=== PATIENT | female | born 1940 | race Caucasian/White ===

== ENCOUNTER 2017-07-08 10:22 | Emergency (ER) | payer MEDICARE, SELFPAY | END 2017-07-08 17:53 | disposition home or self-care (01) | PROVIDERS: Emergency Provider Emergency Medicine; Family Provider Internal Medicine; Visit Provider Emergency Medicine | DX: R55 Syncope and collapse (principal) | CPT/HCPCS: 36415; 70450; 71010; 71045; 80053; 84484; 85025; 85379; 85610; 85730; 93005; 93010; 93970; 96360; 99058; 99285 ==

== ENCOUNTER 2017-12-19 09:00 | Day surgery (SDC) | payer MEDICARE, SELFPAY ==
[2017-12-19] VITALS (9 sets, daily range): BP systolic 100–115; BP diastolic 57–72; PULSE 45–63; RESP 8–16; TEMP 35.8–36.5; O2SAT 91–97; BMI 25.8
[2017-12-19] MEDS: SODIUM CHLORIDE 0.9% 1,000 ML 200 ML IV (09:30)
--- NOTE | 2017-12-19 09:58 | PM.PREOP ---
Pre-operative Note Interval Note Pre-op Check: Yes History & Physical Reviewed by Physician and Yes Exam Performed Changes: No H&P completed within 30 days and has changed as indicated here:: Patient seen and examined. Her history and physical examination from last week is unchanged and on the chart. Proceed with colonoscopy today as planned. ASA Class (for procedural sedation): II
[2017-12-19] MEDS: MIDAZOLAM 5 MG/5 ML VIAL IV (10:20)
[2017-12-19] MEDS: fentaNYL 250 MCG/5 ML INJ IV ×2 (10:21→10:24)
--- NOTE | 2017-12-19 10:33 | PM.OP.ENDO ---
Operative Date/Time/Diagnoses Date of procedure: 12/19/17 Time of procedure: 10:33 Pre-op diagnosis: Colorectal screening Post-op diagnosis: other (Normal left colon except diverticulosis but otherwise incomplete colonoscopy) Procedure & Clinicians Study performed: 1. Sedation per surgeon 2. Incomplete colonoscopy to distal transverse colon Same procedure as scheduled: No Indications: 77-year-old female require colorectal screening since it has been a number of years from her past examination. Colonoscopy was recommended. Surgeon: Payam Paez Procedure Notes Procedure in detail: After obtaining informed consent patient was brought to the endoscopy suite attached all appropriate cardiopulmonary monitors. Nasal cannula oxygen was applied. She was placed in left lateral decubitus position. SCOAP time out was performed per standard protocol. Digital rectal examination revealed no masses. Colonoscope was inserted into the rectum and the bowel was insufflated with carbon dioxide. Sigmoid colon had significant diverticulosis extending up through the descending colon. The sigmoid colon was extremely redundant and tortuous. It took some time to navigate the lumen due to redundancy. Splenic flexure was navigated and the scope was advanced into the distal transverse colon. Once again we encountered significant redundancy and tortuosity of the colon with no ability to advance the scope safely despite multiple maneuvers and abdominal pressure. I therefore elected to abandon the procedure. Scope was withdrawn and the procedure was terminated. Other than the diverticulosis there were no significant findings. She will complete a barium enema to finish screening examination. Scope withdrawal time: Not applicable Sedation minutes: 22 Findings: diverticulosis and other findings (Extremely redundant tortuous left colon prohibiting completion of colonoscopy to the cecum) Specimen(s): none sent Complications: none Recommendations: High fiber diet and Other recommendation (Completion barium enema to be scheduled) Plan for aftercare: 1. Discharge to home Follow up: as needed Disposition: PACU
--- NOTE | 2017-12-19 11:41 | SUR.PHASEII ---
Tending to be sleepy but voices feeling she can dsress. helping. VSS. Reinforced going home and sleeping off meds and is in agreement.
== END 2017-12-19 11:50 | disposition home or self-care (01) ==
PROVIDERS: Family Provider Internal Medicine; PCP Internal Medicine; Visit Provider Surgery
PROC: 0DJD8ZZ Inspection of Lower Intestinal Tract, Via Natural or Artificial Opening Endoscopic (ICD-10-PCS; CPT 45378; principal; 2017-12-19 10:45)
DX: Z12.11 Encounter for screening for malignant neoplasm of colon (principal); K57.30 Diverticulosis of large intestine without perforation or abscess without bleeding; K43.9 Ventral hernia without obstruction or gangrene; Z53.09 Procedure and treatment not carried out because of other contraindication; Q43.8 Other specified congenital malformations of intestine
CPT/HCPCS: G0121; 99152; J2250; J3010

== ENCOUNTER 2018-01-03 06:34 | Day surgery (SDC) | payer MEDICARE, SELFPAY ==
[2017-12-12 14:36] VITALS: BMI 26.2
[2018-01-03] VITALS (12 sets, daily range): BP systolic 105–139; BP diastolic 48–86; PULSE 50–68; RESP 7–16; TEMP 36.1–36.9; O2SAT 93–98; BMI 26.2
[2018-01-03] MEDS: LACTATED RINGERS 1,000 ML 100 ML IV ×2 (07:29→08:43)
--- NOTE | 2018-01-03 07:47 | PM.PREOP ---
Pre-operative Note Interval Note Pre-op Check: Yes History & Physical Reviewed by Physician and Yes Exam Performed Changes: No H&P completed within 30 days and has changed as indicated here:: Patient seen and examined in preoperative area today. History physical examination as documented on December 19, 2017 is on the chart. Document is unchanged. Proceed with hernia repair today as planned.
[2018-01-03] MEDS: CEFAZOLIN 2 GM/100 ML FROZ.PIGGY IV (07:50)
--- NOTE | 2018-01-03 08:05 | SUR.OPER ---
Supine on padded OR bed, head on pillow, arms secured on padded arm boards at <90 degrees abduction, legs uncrossed, safety belt at thigh, tape over blanket over lower legs.
[2018-01-03] MEDS: CEFAZOLIN 1 GM VIAL IV (08:39)
[2018-01-03] MEDS: BUPIVACAINE 0.5% (PF) VIAL 30 ML INJ (08:47)
[2018-01-03] MEDS: LIDOCAINE 1% W/EPI INJ 20 ML INJ (08:47)
--- NOTE | 2018-01-03 09:41 | PM.OP.1 ---
Operative Date/Time/Diagnoses Date of procedure: 01/03/18 Time of procedure: 09:41 Pre-op diagnosis: symptomatic incarcerated ventral hernia Post-op diagnosis: same Procedure & Clinicians Procedure: open repair of incarcerated ventral hernia with mesh Same procedure as scheduled: Yes Indications: 77-year-old female who presented with epigastric mass causing significant discomfort and intermittent pain with activity. Examination and evaluation were consistent with incarcerated ventral hernia. Open repair with mesh was recommended. Surgeon: Payam Paez Click Yes if Unassisted: No Anesthesia Type: General Operative Notes Findings: 1. incarcerated ventral hernia containing omentum 2. ventral hernia in the epigastric location above the umbilicus without involvement of the umbilicus itself Closure Type: primary Specimen(s): none sent Implants & Drains: 8 cm x 8 cm dual sided CQur circular mesh Estimated Blood Loss (mL): 15 Blood products transfused: none Procedure in detail: after obtaining informed consent the patient was brought to the operating room placed supine on the table. After satisfactory induction of anesthesia the abdomen was prepped and draped in usual sterile fashion. SCOAP time out was performed per standard protocol. Palpable hernia was identified and vertical midline incision was created for distance of approximately 3 cm over the palpable defect using 15 scalpel blade. Local anesthesia consisting of a one-to-one mixture 1% lidocaine with 1 100,000 epinephrine 0.5% plain Marcaine was injected in the skin and subcutaneous tissue for postoperative analgesia. Meticulous sharp dissection using Metzenbaum scissors and Bovie was employed to liberate the hernia sac from surrounding connective tissue. Dissection was carried down to the rectus fascia which was identified. Sac was then opened sharply and removed then discarded. Adhesions between the omentum, fascia, and underlying peritoneum were taken down under direct visualization using sharp dissection. Hemostasis was achieved with the Bovie. Great care was taken avoid injury to the colon and small bowel which were visible at this point. Omentum was then reduced back into the abdomen in its usual anatomic position. Hemostasis was verified. Palpation through the defect of the surrounding rectus fascia revealed no other defects. However, the fascia was quite attenuated throughout the entire anterior abdominal wall. Mesh was brought onto the operative field and soaked in Ancef solution. Mesh was then placed into the defect and secured below the fascia using interrupted 0 Tycron sutures. Great care was taken to avoid injury to adjacent structures, including the bowel. Mesh was noted to lie nicely along the fascia with no remaining defects or folds within the mesh. Wound was irrigated with copious amounts of sterile saline solution and hemostasis was verified. The mesh was noted to be in good position with solid repair. Therefore subcutaneous tissue was reapproximated with interrupted 3 0 Vicryl suture. Skin was closed in a subcuticular fashion with running 4 0 Monocryl suture. Dermal adhesive was applied at the skin. Anesthesia was reversed the patient extubated in the operating room. She was taken recovery in stable condition. Complications: none Condition: stable Disposition: PACU Plan for aftercare: 1. Discharge to home 2. Follow up in surgery Clinic in 2 weeks
[2018-01-03] MEDS: HYDROMORPHONE 2 MG INJ 0.5 MG IV ×2 (10:06→10:14)
--- NOTE | 2018-01-03 11:09 | SUR.PHASEII ---
pt still very sleepy, S.O. brought in d/c instructions discussed both voiced an understanding. pt left to rest, abdomen with glue c/d/i. ice intermittently used.
--- NOTE | 2018-01-03 15:56 | SUR.PHASEII ---
pt check on through out stay, S.O at bedside, abdomen remained c/d/i. and pt tolerated pain- rated 2/10 by discharge. pt assisted to dress, steady when up, ;left when ready and left in stable condition.
== END 2018-01-03 12:00 | disposition home or self-care (01) ==
PROVIDERS: Family Provider Internal Medicine; PCP Internal Medicine; Visit Provider Surgery
PROC: (CPT 49560; principal; 2018-01-03 07:45)
DX: K43.9 Ventral hernia without obstruction or gangrene (principal); J45.909 Unspecified asthma, uncomplicated; G47.33 Obstructive sleep apnea (adult) (pediatric); E66.9 Obesity, unspecified
CPT/HCPCS: 49560; 49568; C1781; J0690; J1100; J1170; J2405; J2704; J3010

== ENCOUNTER 2018-01-05 09:07 | Emergency (ER) | payer MEDICARE, SELFPAY ==
[2018-01-05] VITALS (8 sets, daily range): BP systolic 117–150; BP diastolic 60–77; PULSE 52–57; RESP 10–25; TEMP 36.7; O2SAT 92–98
--- NOTE | 2018-01-05 09:11 | ED_ITS ---
HPI - Chest Pain General Chief Complaint: Chest Pain Stated Complaint: Chest pain Time Seen by Provider: 01/05/18 09:10 Source: patient Mode of arrival: ambulatory Limitations: no limitations History of Present Illness HPI narrative: 77-year-old female here for evaluation of chest pain. Patient states that last evening she woke up in the middle of the night and had a funny feeling in her chest. She recently had an umbilical hernia repair earlier this week. She states that she thought that it was reaction to some of the pain medication she was taking. She went back to bed feeling well. Woke up this morning feeling well. States she went and took a shower and went and sat in the living room and then had a sudden onset of chest discomfort. She states that the discomfort started approximately 1 hr prior to arrival here in the emergency department. She states that it went completely away after arrival here in the ER. She states that she felt very uneasy at that time. Was diaphoretic at the time. No nausea vomiting. Did not radiate. Did not get worse with breathing or palpation or movement. States she has never had anything like this before. She has had palpitations in the past and has seen Cardiology however she is not having any palpitations currently or during this event. Related Data Home Medications Medication Instructions Recorded Confirmed aspirin 81 mg chewable tablet 81 mg PO DAILY 10/24/17 01/05/18 omega 4-jyp-mgu-fish oil 1 cap PO DAILY 12/12/17 01/05/18 Previous Rx's Medication Instructions Recorded oxycodone 5 mg PO Q4-6H PRN #30 tab 01/03/18 Allergies Allergy/AdvReac Type Severity Reaction Status Date / Time No Known Drug Allergies Allergy Verified 01/03/18 07:05 Review of Systems Constitutional Denies chills and Denies fever(s) Cardiovascular Reports chest pain, Reports diaphoresis, Denies syncope, Denies rapid heart rate , Denies edema, Denies irregular heart rhythm, Denies leg edema, Denies lightheadedness, Denies radiating jaw, neck or arm pain, Denies palpitations, Denies dyspnea and Denies slow heart rate Respiratory Denies cough and Denies dyspnea Gastrointestinal Gastrointestinal: Denies abdominal pain, Denies change in bowel habits, Denies diarrhea, Denies nausea and Denies vomiting Genitourinary Denies dysuria Musculoskeletal Denies myalgias and Denies arthralgias Integumentary/Breasts Denies lesions and Denies rash Neurologic Denies syncope Endocrine Denies palpitations Hematologic/Lymphatic Denies easy bleeding and Denies easy bruising [facility] Medical History Ventral hernia (Acute) Acid reflux (Acute) Asthma (Acute) Atherosclerotic vascular disease (Acute) Hernia (Acute) History of Holter monitoring (Acute) History of pneumonia (Acute) Hyperlipidemia (Acute) Mitral valve regurgitation (Acute) Palpitations (Acute) Pedal edema (Acute) SVT (supraventricular tachycardia) (Acute) Sinus bradycardia (Acute) Sleep apnea (Acute) Uncomplicated asthma (Acute) Polymyalgia rheumatica (Chronic) Surgical History Cataract extraction status of left eye (Acute) H/O bilateral cataract extraction (Acute) Previous section (Resolved) Family History Father Cancer Social History household members: spouse Smoking Status: Never smoker Exam Initial Vital Signs Initial Vital Signs: Vital Signs Temperature 98.0 F 01/05/18 09:18 Pulse Rate 54 L 01/05/18 09:18 Respiratory Rate 12 01/05/18 09:18 Blood Pressure 150/74 H 01/05/18 09:18 Pulse Oximetry 98 01/05/18 09:18 Const General: cooperative, healthy appearing, comfortable, well developed, well groomed and No acute distress Orientation: alert, awake and oriented x3 HENMT Head: normal to inspection and normocephalic Resp Effort & Inspection: normal respiratory effort Auscultation: clear to auscultation bilaterally Cardio Rate: regular rate Rhythm: regular rhythm Pulses: radial pulses present GI Inspection: non-distended Palpation: soft, No firm and No tender Skin Lesions: no lesions Rashes: no rashes Neuro General: alert, awake and oriented x3 Cognition: normal cognition Speech: speech normal Extrem General: normal to inspection and capillary refill normal Psych Appearance: grossly normal and well kempt Course Orders Ordered: ED Orders 01/05/18 09:12 XR chest 1V Stat EKG-12 Lead Stat 01/05/18 09:50 Complete Blood Count AUTO DIFF Stat Comprehensive Metabolic Panel Stat Lipase Stat Troponin I Stat 01/05/18 14:05 Troponin I Stat Discontinued Medications Aspirin (Aspirin Chew) 324 mg PO NOW ONE Stop: 01/05/18 09:13 Last Admin: 01/05/18 09:36 Dose: 324 mg Vital Signs - 8 hr 01/05/18 09:18 01/05/18 09:22 01/05/18 09:50 Temperature 98.0 F Pulse Rate 54 L 54 L 54 L Respiratory Rate 12 19 12 Blood Pressure 150/74 H Blood Pressure [Right Arm] 150/74 H 117/77 Pulse Oximetry 98 94 95 01/05/18 10:36 01/05/18 11:04 01/05/18 11:39 Temperature Pulse Rate 52 L 54 L 53 L Respiratory Rate 20 10 L 25 H Blood Pressure Blood Pressure [Right Arm] 127/60 125/65 141/74 H Pulse Oximetry 92 93 93 01/05/18 12:26 01/05/18 14:13 Temperature Pulse Rate 52 L 57 L Respiratory Rate 18 18 Blood Pressure Blood Pressure [Right Arm] 128/66 134/75 Pulse Oximetry 93 93 MDM - Chest Pain Lab Data Attestation: I reviewed the patient's lab results. Result diagrams: 01/05/18 09:50 01/05/18 09:50 Lab Results 01/05/18 01/05/18 01/05/18 Range/Units 09:50 09:50 14:05 WBC 11.0 (4.5-11.0) X10^3/uL RBC 4.79 (4.0-5.2) X10^6/uL Hgb 14.0 (12.0-16.0) g/dL Hct 42.7 (36-46) % MCV 89.1 (80-100) fL MCH 29.2 (26-34) PG MCHC 32.8 (30-36) % RDW 13.8 (11.6-14.8) % Plt Count 343 (150-400) X10^3/uL Neut % (Auto) 71.5 (50-75) % Lymph % (Auto) 21.1 L (25-40) % [place] % (Auto) 6.1 (3-14) % Eos % (Auto) 0.9 L (2-4) % Baso % (Auto) 0.4 (0-2) % Neut # (Auto) 7800 H (7171-2127) /uL Sodium 142 (137-145) mmol/L Potassium 3.8 (3.4-5.1) mmol/L Chloride 99 (98-107) mmol/L Carbon Dioxide 31 (22-32) mmol/L BUN 11 (7-17) mg/dL Creatinine 0.70 (0.52-1.04) mg/dL Estimated GFR > 60.0 (>60) mL/min BUN/Creatinine Ratio 15.7 (6-22) Glucose 109 (80-110) mg/dL Calcium 9.5 (8.4-10.2) mg/dL Total Bilirubin 1.0 (0.2-1.3) mg/dL AST 20 (14-36) IU/L ALT 28 (9-52) IU/L Alkaline Phosphatase 75 (38-126) U/L Troponin I < 0.012 < 0.012 (0.01-0.034) ng/mL Total Protein 7.4 (6.3-8.2) g/dL Albumin 4.6 (3.5-5.0) g/dL Globulin 2.8 (1.7-4.1) g/dL Albumin/Globulin Ratio 1.6 (1.0-2.8) Lipase 83 (23-300) U/L Imaging Data Chest x-ray: Radiologist's impression: PROCEDURE: XR CHEST 1V INDICATIONS: chest pain TECHNIQUE: One view of the chest was acquired. COMPARISON: [facility], CHEST 1 VIEW, 07/08/2017, 12:28. FINDINGS: Surgical changes and devices: None. Lungs and pleura: No pleural effusions or pneumothorax. Lungs are clear. Mediastinum: Mediastinal contours appear normal. Heart size is normal. Bones and chest wall: No suspicious bony lesions. Overlying soft tissues appear unremarkable. IMPRESSION: No acute cardiopulmonary pathology. Dictated by: Sandro Coon M.D. on 01/05/2018 at 9:45 Approved by: Sandro Coon M.D. on 01/05/2018 at 9:45 ECG Data Attestation: I personally reviewed and interpreted this ECG as follows: Prior ECG tracings: not available for review Interpretation: Sinus bradycardia ventricular rate of 51 normal axis normal QRS Normal QTC Nonspecific ST T wave changes MDM Narrative Medical decision making narrative: patient has been asymptomatic since being here in the emergency department. First troponin was negative. Second troponin which was greater than 6 hr after the onset of her symptoms was also unremarkable. Has a nonspecific EKG. She was given an aspirin. Had a long discussion with the patient and her at bedside regarding her symptoms. I did inform her that she was at moderate risk for ACS. We did offer admitting her to the hospital to obtain stress testing within 24 hr. After this discussion the patient stated that she did not want to be admitted to the hospital. She stated that she understood the risks of being discharged. 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 Patient was alert and oriented x3. In my opinion has the capacity to make decisions. She was instructed that she can return to the emergency department at any time she changes her mind. Informed her that she need to contact Cardiology tomorrow to discuss follow-up and stress testing. Her was at bedside for these discussions. He agreed with her going home as well. Discharge Plan Departure Patient Disposition: Home Clinical Impression: Atypical chest pain Instructions: DI for Chest Pain Activity Restrictions/Additional Instructions: you did decide not to be admitted to the hospital today so it is important that you contact your primary care doctor and also your manufacturing weaver tomorrow for a follow-up. Make sure you discussed with your manufacturing weaver the indications for a stress test. you may return to the emergency department at any time for new or worsening symptoms Prescriptions: No Action aspirin 81 mg tablet,chewable 81 mg PO DAILY RF: 0 omega 9-zma-jap-fish oil 910-1,400 mg Capsule 1 cap PO DAILY RF: 0 oxycodone 5 mg tablet 5 mg PO Q4-6H PRN (Reason: pain) Qty: 30 RF: 0
[2018-01-05] MEDS: ASPIRIN 81 MG TAB 324 MG PO (09:36)
[2018-01-05 10:04] LABS: Add Manual Diff / Slide Review NO; Basophils Percent Auto 0.4 % (0-2); Eosinophils Percent Auto 0.9 % (2-4); Hematocrit 42.7 % (36-46); Lymphocytes Percent Auto 21.1 % (25-40); Mean Corpuscular HGB Conc 32.8 % (30-36); Mean Corpuscular Hemoglobin 29.2 PG (26-34); Mean Corpuscular Volume 89.1 fL (80-100); Monocytes Percent Auto 6.1 % (3-14); Neutrophils Absolute Auto 7800 /uL (3000-5900); Neutrophils Percent Auto 71.5 % (50-75); Platelet Count 343 X10^3/uL (150-400); Red Blood Cell Count 4.79 X10^6/uL (4.0-5.2); Red Cell Distribution Width 13.8 % (11.6-14.8)
[2018-01-05 10:10] LABS: Alanine Aminotransferase 28 IU/L (9-52); Albumin 4.6 g/dL (3.5-5.0); Albumin Globulin Ratio 1.6 (1.0-2.8); Alkaline Phosphatase 75 U/L (38-126); Aspartate Aminotransferase 20 IU/L (14-36); BUN Creatinine Ratio 15.7 (6-22); Blood Urea Nitrogen 11 mg/dL (7-17); Calcium 9.5 mg/dL (8.4-10.2); Carbon Dioxide 31 mmol/L (22-32); Chloride 99 mmol/L (98-107); Estimated Glomerular Filt Rate > 60.0 mL/min (>60); Globulin 2.8 g/dL (1.7-4.1); Glucose 109 mg/dL (80-110); HEMOLYSIS < 15 (0-50); Lipase 83 U/L (23-300); Potassium 3.8 mmol/L (3.4-5.1); Sodium 142 mmol/L (137-145); Total Protein 7.4 g/dL (6.3-8.2)
[2018-01-05 10:23] LABS: Troponin I < 0.012 ng/mL (0.01-0.034)
[2018-01-05 14:33] LABS: Troponin I < 0.012 ng/mL (0.01-0.034)
--- NOTE | 2018-01-05 18:51 | PM.PN.1 ---
Subjective Date Patient Seen: 01/05/18 Time Patient Seen: 11:00 Interval history: Notified by emergency room physician and staff that the patient had presented this morning with complaints of chest pain and shortness of breath. I saw the patient in the ER during her evaluation after she had been initially seen, examined, and stabilized. At the time of my visit she was sitting comfortably in the gurney in no acute distress. She was in good spirits. is at the bedside. She denies any nausea or vomiting. No fever or chills. No wound drainage. Her pain at the wound site itself is relatively minimal. Denies abdominal pain elsewhere. Has not had a bowel movement since surgery. No dysuria or hematuria however. She is passing flatus. Exam Vital Signs (past 8 hours): - 01/05/18 11:04 01/05/18 11:39 01/05/18 12:26 Pulse Rate 54 L 53 L 52 L Respiratory Rate 10 L 25 H 18 Blood Pressure [Right Arm] 125/65 141/74 H 128/66 Pulse Oximetry 93 93 93 01/05/18 14:13 Pulse Rate 57 L Respiratory Rate 18 Blood Pressure [Right Arm] 134/75 Pulse Oximetry 93 Oxygen Delivery Method Room Air Narrative Exam Narrative: Vital signs are as above Abdomen is soft and nondistended. She is completely nontender except at the incision site which is otherwise clean, dry, and intact. No drainage. She does have ecchymoses surrounding the incision and tracking around the umbilicus to the inferior aspect of the abdomen consistent with postoperative changes. She does have seroma at the hernia repair site as anticipated. No obvious abscess or significant hematoma. No significant erythema or evidence of cellulitis. Objective Labs Result Diagrams: 01/05/18 09:50 01/05/18 09:50 Labs: Laboratory Results - last 24 hr 01/05/18 01/05/18 01/05/18 09:50 09:50 14:05 WBC 11.0 RBC 4.79 Hgb 14.0 Hct 42.7 MCV 89.1 MCH 29.2 MCHC 32.8 RDW 13.8 Plt Count 343 Neut % (Auto) 71.5 Lymph % (Auto) 21.1 L [place] % (Auto) 6.1 Eos % (Auto) 0.9 L Baso % (Auto) 0.4 Neut # (Auto) 7800 H Sodium 142 Potassium 3.8 Chloride 99 Carbon Dioxide 31 BUN 11 Creatinine 0.70 Estimated GFR > 60.0 BUN/Creatinine Ratio 15.7 Glucose 109 Calcium 9.5 Total Bilirubin 1.0 AST 20 ALT 28 Alkaline Phosphatase 75 Troponin I < 0.012 < 0.012 Total Protein 7.4 Albumin 4.6 Globulin 2.8 Albumin/Globulin Ratio 1.6 Lipase 83 All laboratory studies are reviewed. EKG is unremarkable. Cardiac enzymes are negative. One view upright chest x-ray shows no infiltrates or pneumothorax. No significant cardiomegaly. No significant effusions. No evidence of free air under the diaphragm. Assessment & Plan Plan: Assessment/Plan Narrative: 77-year-old female postoperative day 2 from open ventral hernia pair with mesh. The repair seemed to be solidly intact. No evidence of intra-abdominal hemorrhage, infection, or bowel injury. No evidence of wound infection. She does have seroma and small hematoma resulting in some ecchymoses around the incision. However, I do not believe this would explain her current symptoms of chest pain and shortness of breath. I do not see indications for antibiotics. I discussed all the above with the patient and her in detail. She will continue her usual postoperative course and treatment recommendations as previously documented. I did encourage her to take her stool softeners and Senokot daily. I also discussed the addition of milk of magnesia as needed to prevent constipation. She may ambulate as much as desired. She should continue to refrain from heavy lifting more than 20 lb. 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 Appreciate Dr. Mac's care. All questions were answered to the patient's satisfaction, and she voiced understanding. She will otherwise follow up with me as scheduled, but she understands to call or return sooner if she has any new issues, recurrent symptoms, or changes in the incision.
== END 2018-01-05 14:53 | disposition home or self-care (01) ==
PROVIDERS: Emergency Provider Emergency Medicine; Family Provider Internal Medicine; PCP Internal Medicine
DX: R07.89 Other chest pain (principal)
CPT/HCPCS: 36415; 36591; 71045; 80053; 83690; 84484; 85025; 93005; 93010; 93041; 99284; 99285

== ENCOUNTER → 2018-02-21 09:06 | Outpatient (CLI) | payer MEDICARE, SELFPAY ==
--- NOTE | 2018-02-21 09:08 | DI.RAD.S_ITS ---
PROCEDURE: FL BARIUM ENEMA W AIR CONTRAST INDICATIONS: incomplete colonoscopy COMPARISON: None. FINDINGS: KUB: Pre-procedural installation helper film demonstrates a normal bowel gas pattern. No suspicious abdominal calcifications. Visualized solid organ contours are normal in size. No suspicious bony lesions. Colon: There is adequate air-contrast opacification from the rectum to the cecum. Numerous diverticuli are seen scattered in hepatic flexure, transverse colon, descending colon and sigmoid colon. Mildly redundant sigmoid colon is seen. No strictures, ulcers, polyps, or masses are seen. Haustral folds are normal in thickness throughout. Normal appearing appendix is noted. IMPRESSION: Moderate colonic diverticulosis. No gross discrete colon polyp, ulceration or stricture is seen. No gross abnormal colonic wall thickening. Mildly redundant sigmoid colon. Dictated by: Sandro Coon M.D. on 02/21/2018 at 11:46 Approved by: Sandro Coon M.D. on 02/21/2018 at 11:52
== END ==
PROVIDERS: PCP Internal Medicine; Visit Provider Surgery
DX: Z12.11 Encounter for screening for malignant neoplasm of colon (principal); K57.30 Diverticulosis of large intestine without perforation or abscess without bleeding
CPT/HCPCS: 74280

== ENCOUNTER → 2018-06-20 13:04 | Outpatient (CLI) | payer MEDICARE, SELFPAY | PROVIDERS: PCP Internal Medicine; Visit Provider Internal Medicine | DX: Z13.820 Encounter for screening for osteoporosis (principal); Z78.0 Asymptomatic menopausal state; M89.9 Disorder of bone, unspecified; M35.3 Polymyalgia rheumatica | CPT/HCPCS: 77080 ==

== ENCOUNTER → 2018-11-16 10:55 | Outpatient (CLI) | payer MEDICARE, SELFPAY ==
--- NOTE | 2018-11-16 | DI.RAD.S_ITS ---
PROCEDURE: XR CHEST 2V INDICATIONS: SHORTNESS OF BREATH TECHNIQUE: 2 views of the chest were acquired. COMPARISON: CXR 01/05/2018, 07/08/2017, 01/22/2015, 11/05/2013 FINDINGS: Surgical changes and devices: None. Lungs and pleura: Minimal bibasilar hazy opacity. No consolidation. No pleural effusions or pneumothorax. Mediastinum: Mediastinal contours are normal. Heart size is normal. Bones and chest wall: No suspicious bony abnormalities. Soft tissues appear unremarkable. IMPRESSION: Minimal bibasilar hazy opacity most compatible with atelectasis. Dictated by: Kumar Cosme M.D. on 11/16/2018 at 11:37 Approved by: Kumar Cosme M.D. on 11/16/2018 at 11:39
== END ==
PROVIDERS: Family Provider Internal Medicine; PCP Internal Medicine; Visit Provider Internal Medicine Cardiovascular Disease
DX: R06.02 Shortness of breath (principal)
CPT/HCPCS: 71046

== ENCOUNTER → 2018-11-29 16:53 | Outpatient (CLI) | payer MEDICARE, SELFPAY ==
--- NOTE | 2018-12-01 12:13 | PM.PFT.1 ---
Pulmonary Function Test Referral & Results Date Patient Seen: 11/29/18 Requesting provider: Carlos Conner Results: The spirometry demonstrates an FVC of 2.76 L which is 91% of predicted. The FEV1 was measured at 1.94 L which is 85% of predicted. The FEV1/FVC ratio was 70 which is 93% of predicted. Following the administration of bronchodilator there was a 37% improvement in FEF 25-75% but no significant improvement in FEV1. Lung volumes show an SVC of 2.90 L which is 98% of predicted. The diffusing capacity was measured at 19.96 which is 74% of predicted. No hemoglobin value was provided, so no correction for potential anemia could be made, if appropriate. The maximum voluntary ventilation was severely reduced Interpretation: This study demonstrates perhaps very mild obstructive lung disease with evidence of minimal benefit particularly small airway flow after bronchodilator based on improvement in FEF 25-75% There is also slight reduction in diffusing capacity suggesting an element of disease at the capillary alveolar level Clinical correlation suggested
== END ==
PROVIDERS: Family Provider Internal Medicine; PCP Internal Medicine; Visit Provider Internal Medicine Cardiovascular Disease
DX: R06.02 Shortness of breath (principal); J44.9 Chronic obstructive pulmonary disease, unspecified
CPT/HCPCS: 94060; 94726; 94729

== ENCOUNTER → 2019-04-19 08:35 | Outpatient (CLI) | payer MEDICARE, SELFPAY ==
[2019-04-19 09:59] LABS: Alanine Aminotransferase 29 IU/L (<35); Aspartate Aminotransferase 28 IU/L (14-36); Blood Urea Nitrogen 14 mg/dL (7-17); Calcium 9.7 mg/dL (8.4-10.2); Carbon Dioxide 27 mmol/L (22-32); Chloride 103 mmol/L (98-107); Cholesterol 188 mg/dL (140-199); Estimated Glomerular Filt Rate > 60.0 mL/min (>60); Glucose 105 mg/dL (80-110); HDL Cholesterol 45 mg/dL (40-60); HEMOLYSIS < 15 (0-50); LDL Cholesterol Calculated 119 mg/dL (<100); Sodium 141 mmol/L (137-145); Triglycerides 122 mg/dL (35-150)
[2019-04-19 10:11] LABS: Vitamin D 25 Hydroxy (D3) 35.9 ng/mL (30.0-100.0)
[2019-04-19 10:44] LABS: Vitamin B12 588 pg/mL (239-931)
== END ==
PROVIDERS: PCP Internal Medicine; Visit Provider Internal Medicine
DX: R00.2 Palpitations (principal); E78.00 Pure hypercholesterolemia, unspecified; E55.9 Vitamin D deficiency, unspecified
CPT/HCPCS: 36415; 80048; 80061; 82306; 82607; 84450; 84460

== ENCOUNTER → 2020-07-07 08:24 | Outpatient (CLI) | payer MEDICARE, SELFPAY ==
--- NOTE | 2020-07-07 08:26 | DI.MG.S_ITS ---
BILATERAL DIGITAL SCREENING MAMMOGRAM 3D/2D WITH CAD: 07/07/2020 CLINICAL: Routine screening. Comparison is made to exams dated: 01/22/2015 mammogram, 06/02/2012 mammogram - [facility], and 01/08/2011 mammogram - [facility]. There are scattered fibroglandular elements in both breasts. Current study was also evaluated with a Computer Aided Detection (CAD) system. There is possible developing architectural distortion in the right breast anterior depth superior region seen on the mediolateral oblique view only. No other significant masses, calcifications, or other findings are seen in either breast. IMPRESSION: INCOMPLETE: NEEDS ADDITIONAL IMAGING EVALUATION The possible developing architectural distortion in the right breast is indeterminate. Additional views with possible ultrasound are recommended. This exam was interpreted at Station ID: [id number]. NOTE: For mammograms, a report in lay terms will be sent to the patient. Approximately 15% of breast malignancies will not be visualized mammographically. In the management of a palpable breast mass, a negative mammogram must not discourage biopsy of a clinically suspicious lesion. Electronically Signed By: Kumar Cosme M.D. [facility]/:07/07/2020 09:42:34 letter sent: Additional Imaging Needed ACR BI-RADS Category 0: Incomplete [id number]
== END ==
PROVIDERS: PCP Internal Medicine; Referring Provider Internal Medicine; Visit Provider Internal Medicine
DX: Z12.31 Encounter for screening mammogram for malignant neoplasm of breast (principal)
CPT/HCPCS: 77063; 77067

== ENCOUNTER → 2020-07-15 14:59 | Outpatient (CLI) | payer MEDICARE, SELFPAY ==
--- NOTE | 2020-07-15 15:01 | DI.MG.S_ITS ---
UNILATERAL RIGHT DIGITAL DIAGNOSTIC MAMMOGRAM 3D/2D WITH ADDITIONAL VIEWS: 07/15/2020 CLINICAL: Additional evaluation requested from prior study. Comparison is made to exams dated: 07/07/2020 mammogram, 01/22/2015 mammogram, and 06/02/2012 mammogram - [facility]. There are scattered fibroglandular elements in right breast. There is a developing benign architectural distortion in the right breast middle depth superior region seen on the mediolateral oblique view only on screening mammogram. Additional views were performed including rolled views and the abnormality resolves and appears to be superimposition of tissue. No other significant masses or calcifications are seen in the breast. IMPRESSION: BENIGN There is no mammographic evidence of malignancy. Return to annual mammogram screening schedule is recommended. This exam was interpreted at Station ID: [id number]. NOTE: For mammograms, a report in lay terms will be sent to the patient. Approximately 15% of breast malignancies will not be visualized mammographically. In the management of a palpable breast mass, a negative mammogram must not discourage biopsy of a clinically suspicious lesion. Electronically Signed By: Matt Flores acr/:07/15/2020 15:45:03 letter sent: Normal Exam ACR BI-RADS Category 2: Benign Finding(s) 3342F
== END ==
PROVIDERS: PCP Internal Medicine; Referring Provider Internal Medicine; Visit Provider Internal Medicine
DX: R92.8 Other abnormal and inconclusive findings on diagnostic imaging of breast (principal)
CPT/HCPCS: 77065; G0279

== ENCOUNTER → 2020-10-01 15:07 | Outpatient (CLI) | payer MEDICARE, SELFPAY ==
--- NOTE | 2020-10-01 | DI.RAD.S_ITS ---
PROCEDURE: XR KNEE RT 1TO2V INDICATIONS: PAIN IN BOTH KNEES, UNSPECIFIED CHRONICITY TECHNIQUE: 2 views of the knee were acquired. COMPARISON: None. FINDINGS: Bones: No fractures or dislocations. No suspicious bony lesions. Moderate to severe medial moderate patellofemoral compartment narrowing. Periarticular osteophytes are present. No definitive erosions. Soft tissues: Mild joint effusion. No suspicious soft tissue calcifications. 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 Dictated by: Deann Elkins M.D. on 10/01/2020 at 17:39 Approved by: Deann Elkins M.D. on 10/01/2020 at 17:40
--- NOTE | 2020-10-01 15:11 | DI.RAD.S_ITS ---
PROCEDURE: XR FOOT LT MIN 3V INDICATIONS: LEFT FOOT PAIN TECHNIQUE: 3 views of the foot were acquired. COMPARISON: None. FINDINGS: Bones: No fractures or dislocations. No suspicious bony lesions. Severe 1st MTP degenerative narrowing is present. Periarticular osteophytes as well as prominent endplate sclerosis is present. Areas of subchondral lucency are identified. These could represent small cysts versus less likely erosions. Otherwise, scattered IP degenerative narrowing is present. Soft tissues: No tibiotalar joint effusion. Achilles tendon appears normal. 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 Dictated by: Deann Elkins M.D. on 10/01/2020 at 17:37 Approved by: Deann Elkins M.D. on 10/01/2020 at 17:38
--- NOTE | 2020-10-01 15:11 | DI.RAD.S_ITS ---
PROCEDURE: XR KNEE LT 1TO2V INDICATIONS: BILATERAL KNEE PAIN TECHNIQUE: 2 views of the knee were acquired. COMPARISON: None. FINDINGS: Bones: No fractures or dislocations. No suspicious bony lesions. Moderate to severe medial and moderate patellofemoral compartment narrowing. Periarticular osteophytes are present. Soft tissues: Mild joint effusion. No suspicious soft tissue calcifications. IMPRESSION: Arthritic changes most severe in the medial compartment as above. Dictated by: Deann Elkins M.D. on 10/01/2020 at 17:39 Approved by: Deann Elkins M.D. on 10/01/2020 at 17:39
== END ==
PROVIDERS: PCP Internal Medicine; Referring Provider Internal Medicine; Visit Provider Internal Medicine
DX: M79.672 Pain in left foot (principal); M25.562 Pain in left knee; M25.561 Pain in right knee
CPT/HCPCS: 73560; 73630

== ENCOUNTER → 2021-05-22 09:12 | Outpatient (CLI) | payer MEDICARE, SELFPAY ==
[2021-05-22 10:33] LABS: COVID-19 CEPHEID PCR (VTM/NP) Negative (Negative)
== END ==
PROVIDERS: Family Provider Internal Medicine; PCP Internal Medicine; Referring Provider Internal Medicine; Visit Provider Internal Medicine
DX: Z20.822 Contact with and (suspected) exposure to COVID-19 (principal)
CPT/HCPCS: C9803; U0003; U0005

== ENCOUNTER → 2021-05-22 09:14 | Outpatient (CLI) | payer MEDICARE, SELFPAY ==
--- NOTE | 2021-05-27 09:17 | PM.PFT.1 ---
Pulmonary Function Test Referral & Results Date Patient Seen: 05/22/21 Requesting provider: Sil Martínez Results: The spirometry demonstrates an FVC of 2.75 L which is 94% of predicted. The FEV1 was measured at 1.97 L which is 90% of predicted. The FEV1/FVC ratio was 72 which is 96% of predicted. Following the administration of bronchodilator there was no appreciable change to above normal numbers Lung volumes show an SVC of 2.73 L which is 94% of predicted. The diffusing capacity was measured at 18.78 which is 69% of predicted. No hemoglobin value was provided, so no correction for potential anemia could be made, if appropriate. The maximum voluntary ventilation was minimally reduced Interpretation: This study demonstrates normal spirometry and moderate reduction diffusing capacity suggesting disease at the capillary alveolar level Compared to PFTs performed in November 2018, current study is essentially unchanged there might be a slight decline in diffusing capacity the probably does not meet criteria for statistical difference, however.
== END ==
PROVIDERS: Family Provider Internal Medicine; PCP Internal Medicine; Referring Provider Internal Medicine; Visit Provider Internal Medicine
DX: J45.998 Other asthma (principal); Z20.822 Contact with and (suspected) exposure to COVID-19
CPT/HCPCS: 71046; 94060; 94726; 94729; C9803; U0003; U0005

== ENCOUNTER → 2021-05-22 09:17 | Outpatient (CLI) | payer MEDICARE, SELFPAY ==
--- NOTE | 2021-05-22 09:20 | DI.RAD.S_ITS ---
PROCEDURE: XR CHEST 2V INDICATIONS: EXTERNAL TECHNIQUE: 2 views of the chest were acquired. COMPARISON: [facility], CR, XR CHEST 2V, 11/16/2018, 10:58. FINDINGS: Surgical changes and devices: Interval placement of a left cardiac device. Lungs and pleura: Lungs are clear. No pleural effusions or pneumothorax. Mediastinum: Mediastinal contours are normal. Heart size is normal. Bones and chest wall: No suspicious bony abnormalities. Soft tissues appear unremarkable. IMPRESSION: No acute cardiopulmonary abnormality. Dictated by: Eliu Ortez M.D. on 05/22/2021 at 11:29 Approved by: Eliu Ortez M.D. on 05/22/2021 at 11:30
== END ==
PROVIDERS: Family Provider Internal Medicine; PCP Internal Medicine; Referring Provider Internal Medicine; Visit Provider Internal Medicine
DX: R05.9 Cough, unspecified (principal)
CPT/HCPCS: 71046

== ENCOUNTER 2021-09-08 11:37 | Observation (INO) | payer MEDICARE, SELFPAY ==
[2021-09-08] VITALS (21 sets, daily range): BP systolic 138–164; BP diastolic 65–96; PULSE 60–86; RESP 12–31; TEMP 36.3–36.6; O2SAT 93–99; BMI 29.0
--- NOTE | 2021-09-08 11:43 | DI.CT.S_ITS ---
PROCEDURE: CT STROKE INDICATIONS: stroke symptoms TECHNIQUE: Noncontrast 4.5 mm thick angled axial sections acquired from the foramen magnum to the vertex, with coronal reformats. For radiation dose reduction, the following was used: automated exposure control, adjustment of mA and/or kV according to patient size. COMPARISON: [facility], CT, HEAD WITHOUT CONTRAST, 07/08/2017, 12:42. FINDINGS: Image quality: Excellent. CSF spaces: Basal cisterns are patent. No extra-axial fluid collections. The ventricles are symmetric in size and shape. Brain: No intracranial bleeds or masses. There is moderate cerebral volume loss for age, with resultant ventricular and sulcal prominence. There are severe periventricular and deep white matter chronic small vessel ischemic changes. There is intracranial internal carotid artery atherosclerosis. Skull and face: Calvarium and visualized facial bones appear intact, without suspicious lesions. Sinuses: Visualized sinuses and mastoids are clear. IMPRESSION: 1. No acute intracranial abnormalities. 2. Cerebral volume loss and chronic microvascular ischemic changes. The result was discussed with Dr. Riley. This study fulfills neurological imaging criteria for inclusion or exclusion of acute stroke therapies based on available published neurological guidelines. Dictated by: Pura Peng M.D. on 09/08/2021 at 11:54 Approved by: Pura Peng M.D. on 09/08/2021 at 11:57
--- NOTE | 2021-09-08 12:01 | DI.CT.S_ITS ---
PROCEDURE: CT ANGIO HEAD AND NECK INDICATIONS: stroke symptoms TECHNIQUE: Noncontrast images were performed earlier in the day and not repeated. After the administration of intravenous contrast, 1 mm thick sections acquired from the aortic arch through the [place]. Post-contrast 4.5 mm thick sections then re-acquired from the foramen magnum to the vertex. 3-dimensional qeozycd-dgmxkkops-irtrefgwlj (MIP) and/or volume rendering reformats were acquired of the central intracranial vasculature and neck separately. For radiation dose reduction, the following was used: automated exposure control, adjustment of mA and/or kV according to patient size. COMPARISON: [facility], CT, CT STROKE, 09/08/2021, 11:42. [facility], CT, HEAD WITHOUT CONTRAST, 07/08/2017, 12:42. FINDINGS: Image quality: Excellent. BRAIN: CSF spaces: Ventricles are normal in size and shape. Basal cisterns are patent. No extra-axial fluid collections. Brain: No midline shift. No intracranial bleeds or masses. [place]-white matter interface appears intact. Skull and face: Calvarium and facial bones appear intact, without suspicious lesions. Orbits appear normal. Sinuses: Sinuses and mastoids are clear. HEAD CT ANGIOGRAPHY: Anterior circulation: Intracranial internal carotid arteries demonstrate generalized irregularity and calcification, with approximately 30% narrowing seen on each side.. The flow within the paired anterior cerebral arteries is normal and symmetric. The flow within the middle cerebral arteries is normal and symmetric. The anterior communicating artery is seen. No aneurysms are seen. Posterior circulation: Visualized portions of the vertebral arteries demonstrate normal caliber, and join to form a normal appearing basilar artery. Flow within the posterior cerebral arteries is normal and symmetric. No aneurysms are seen. NECK CT ANGIOGRAPHY: Carotid system: The great vessels demonstrate a conventional anatomy as they arise from the aortic arch. The origins of the common carotid arteries appear patent. The common carotid arteries demonstrate normal caliber and courses. The bifurcation regions are both widely patent. The internal carotid arteries demonstrate normal calibers and courses. Posterior circulation: The origins of the vertebral arteries both appear widely patent. The more superior extracranial portions of both vertebral arteries also demonstrate normal caliber, with moderate tortuosity noted. Soft tissues: Visualized neck soft tissues demonstrate no suspicious abnormalities. Bones: No suspicious bony lesions. Visualized cervical spine appears normally aligned. At least moderate cervical spine degenerative change can be seen. IMPRESSION: No significant intracranial arterial abnormality is seen. No significant carotid abnormality can be seen. If there is strong clinical suspicion for an acute stroke, please consider a brain MRI for further evaluation, as it is more sensitive (assuming that there is no contraindication to MRI). Tortuosity is seen of the vertebral arteries, without a focal stenosis seen. Any quantitative measurements of stenosis were performed using NASCET criteria. Dictated by: Darius Ortiz M.D. on 09/08/2021 at 11:06 Approved by: Darius Ortiz M.D. on 09/08/2021 at 11:09
[2021-09-08 12:04] LABS: Add Manual Diff / Slide Review NO; Basophils Absolute Auto 0 /uL (0-100); Basophils Percent Auto 0.3 % (0-2); Eosinophils Absolute Auto 200 /uL (0-450); Eosinophils Percent Auto 2.1 % (2-4); Hematocrit 40.8 % (36-46); Hemoglobin 13.3 g/dL (12.0-16.0); Lymphocytes Absolute Auto 3400 /uL (1100-4500); Lymphocytes Percent Auto 37.5 % (25-40); Mean Corpuscular HGB Conc 32.7 % (30-36); Mean Corpuscular Volume 88.7 fL (80-100); Monocytes Absolute Auto 800 /uL (0-900); Monocytes Percent Auto 9.2 % (3-14); Neutrophils Absolute Auto 4700 /uL (1500-7000); Neutrophils Percent Auto 50.9 % (50-75); Platelet Count 310 X10^3/uL (150-400); Red Cell Distribution Width 13.6 % (11.6-14.8); White Blood Cell Count 9.2 X10^3/uL (4.5-11.0)
[2021-09-08 12:30] LABS: Alanine Aminotransferase 21 IU/L (<35); Albumin 4.2 g/dL (3.5-5.0); Albumin Globulin Ratio 1.6 (1.0-2.8); Alkaline Phosphatase 73 U/L (38-126); Aspartate Aminotransferase 31 IU/L (14-36); BUN Creatinine Ratio 14.7 (6-22); Bilirubin Total 0.5 mg/dL (0.2-1.3); Blood Urea Nitrogen 11 mg/dL (7-17); Calcium 8.6 mg/dL (8.4-10.2); Carbon Dioxide 17 mmol/L (22-32); Chloride 106 mmol/L (98-107); Estimated Glomerular Filt Rate > 60 mL/min (>60); Globulin 2.7 g/dL (1.7-4.1); Glucose 114 mg/dL (80-110); HEMOLYSIS 16 (0-50); Potassium 3.8 mmol/L (3.4-5.1); Sodium 138 mmol/L (137-145); Total Protein 6.9 g/dL (6.3-8.2)
[2021-09-08] MEDS: SODIUM CHLORIDE 0.9% 1,000 ML 150 ML IV (12:32)
[2021-09-08 12:42] LABS: Troponin I < 0.012 ng/mL (0.01-0.034)
[2021-09-08 12:50] LABS: Appearance Urine UA CLEAR; Bilirubin Urine UA NEGATIVE (NEGATIVE); Color Urine UA YELLOW; Glucose Urine UA NEGATIVE (Negative); Ketones Urine UA TRACE (NEGATIVE); Leukocyte Esterase Urine UA NEGATIVE (NEGATIVE); Nitrite Urine UA NEGATIVE (Negative); Occult Blood Urine UA 1+ (Negative); Protein Urine UA 1+ (Negative); Urobilinogen Urine UA 0.2 E.U./dL (0.2)
[2021-09-08 13:00] LABS: Bacteria Urine None Seen; Culture Indicated Urine Cult Not Indicated; RBC Urine 0-1/HPF (0-5/HPF); WBC Urine None Seen (0-5/HPF)
[2021-09-08 13:29] LABS: UR Morphine/Opiate cutoff 300 Negative (Negative); Ur Creatinine Normal (Normal); Ur Specific Gravity Normal (Normal); Urine Amphetamines Negative (Negative); Urine Barbiturates Negative (Negative); Urine Benzodiazepines Negative (Negative); Urine Cocaine Negative (Negative); Urine MDMA Negative (Negative); Urine Methadone Negative (Negative); Urine Methamphetamines Negative (Negative); Urine Oxycodone Negative (Negative); Urine Phencyclidine Negative (Negative); Urine Tetrahydrocannabinol Negative (Negative); Urine Tricyclic Antidepressant Negative (Negative); Urine pH Normal (Normal)
--- NOTE | 2021-09-08 14:08 | ED_ITS ---
HPI - Neuro Symptoms/Deficit General Chief Complaint: Neuro Symptoms/Deficit Stated Complaint: Code Stroke Time Seen by Provider: 09/08/21 11:42 Mode of arrival: EMS History of Present Illness HPI Narrative: 81-year-old woman with mild hyperlipidemia and slight chronic cough with no other complications or significant medical history was out gardening this aftern oon and had a witnessed syncopal episode falling to the ground without any trauma appreciated. Her called 911. She did not lose pulses but it took her approximately 5 minutes to gain consciousness and when she did she was extremely confused with a question of left-sided deficits but overall weakness. She is brought into the emergency department. Code stroke is activated. She notes that she has been vaccinated x4 against COVID, has had a chronic cough that she has reviewed with her primary care doctor that has not changed, no recent fevers, chest pain, palpitations, abdominal pain, back pain, lower extremity swelling, dysuria urgency or frequency, no headaches. On Anticoagulants: No Related Data Home Medications Medication Instructions Recorded Confirmed aspirin 81 mg chewable tablet 81 mg PO DAILY 10/24/17 01/16/18 omega 1-zuz-bdy-fish oil 910 1 cap PO DAILY 12/12/17 01/16/18 mg-1,400 mg capsule Allergies Allergy/AdvReac Type Severity Reaction Status Date / Time No Known Drug Allergies Allergy Verified 09/08/21 11:47 Review of Systems Review of Systems Narrative: Remainder of complete review of systems is otherwise unremarkable except for t hat included in the HPI. Hematologic/Lymphatic On Anticoagulants: No Patient History Medical History (Updated 09/08/21 @ 17:05 by Julianne Mann MD) Acid reflux Asthma Atherosclerotic vascular disease Hernia History of Holter monitoring History of pneumonia Hyperlipidemia Mitral valve regurgitation Palpitations Pedal edema Polymyalgia rheumatica Sinus bradycardia Sleep apnea SVT (supraventricular tachycardia) Uncomplicated asthma Ventral hernia Surgical History Cataract extraction status of left eye H/O bilateral cataract extraction Previous section Family History Father Cancer Social History household members: spouse Smoking Status: Never smoker alcohol intake: current Smoking Status: Never smoker alcohol intake frequency: 0-2 drinks per day Substance Use Type: does not use Exam Initial Vital Signs Initial Vital Signs: Vital Signs Temperature 97.4 F L 09/08/21 11:59 Pulse Rate 61 09/08/21 11:59 Respiratory Rate 12 09/08/21 11:59 Blood Pressure 144/69 H 09/08/21 11:59 Pulse Oximetry 93 09/08/21 11:59 Oxygen Delivery Method 09/08/21 11:59 General: Fatigued appearing but in no acute distress. On initial presentation was significantly confused and unable to provide history. On re-examination still slightly confused but dramatically improved HEENT: Moist mucous membranes, normal sclera with reactive pupils, no facial droop Neck: No JVD, supple Respiratory: Lungs are clear to auscultation, no wheezing no rales no rhonchi. Full and symmetrical air movement Cardiac: Regular rate and rhythm with 3/6 murmur. Abdomen: Soft, nontender, good bowel tones, no flank pain Skin: Warm and dry, no rashes Neurologic: Globally weak. No specific focal abnormalities appreciated. Initially quite confused, not hyperreflexic, no nystagmus. Extremities: No trauma, well perfused Psych: Cooperative, contusion is improving but still significant amount of retrograde amnesia Course Orders Ordered: ED Orders 09/08/21 11:43 CT Stroke Stat EKG-12 Lead Stat 09/08/21 11:45 Complete Blood Count AUTO DIFF Stat Comprehensive Metabolic Panel Stat Trop I [Troponin I] Stat 09/08/21 12:01 CT angio head and neck Stat 09/08/21 12:16 Urine Drug Screen, Rapid Stat 09/08/21 12:24 UA Complete [Urinalysis and Microscopic] Stat 09/08/21 12:55 Blood Culture Stat 09/08/21 14:15 COVID19 -Nasal RAPID/Pre-Proc Stat 09/08/21 14:25 Trop I [Troponin I] Stat 09/08/21 16:30 XR chest 1V Stat Sodium Chloride (Normal Saline 0.9%) 1,000 mls @ 150 mls/hr IV CONT TYSHAWN Last Infusion: 09/08/21 13:57 Dose: 0 mls/hr Documented By: Infusion: 09/08/21 13:00 Dose: 999 mls/hr Documented By: Admin: 09/08/21 12:32 Dose: 150 mls/hr Documented By: [facility] Sodium Chloride (Normal Saline 0.9%) 1,000 mls @ 150 mls/hr IV CONT TYSHAWN Last Admin: 09/08/21 16:09 Dose: Not Given Documented By: RLS Discontinued Medications Dexamethasone (Dexamethasone 10 Mg/Ml Vial) 6 mg IV NOW ONE Stop: 09/08/21 15:09 Last Admin: 09/08/21 16:41 Dose: Not Given Documented By: CTS Sodium Chloride (Normal Saline 0.9%) 500 mls @ 1,000 mls/hr IV BOLUS ONE Stop: 09/08/21 15:37 Last Admin: 09/08/21 16:08 Dose: Not Given Documented By: RLS Vital Signs Vital signs: Vital Signs - 8 hr 09/08/21 11:59 09/08/21 12:34 09/08/21 13:00 Temperature 97.4 F L Pulse Rate 61 61 61 Respiratory Rate 12 25 H 19 Blood Pressure 144/69 H Pulse Oximetry 93 97 98 Oxygen Delivery Method Room Air 09/08/21 13:30 09/08/21 14:00 09/08/21 14:02 Temperature Pulse Rate 60 62 Respiratory Rate 29 H 24 Blood Pressure 145/73 H Pulse Oximetry 97 98 Oxygen Delivery Method 09/08/21 14:02 Temperature Pulse Rate 63 Respiratory Rate 28 H Blood Pressure Pulse Oximetry 97 Oxygen Delivery Method MDM - Neuro Symptoms/Deficit Lab Data Result diagrams: 09/08/21 11:45 09/08/21 11:45 Labs: Lab Results 09/08/21 09/08/21 09/08/21 Range/Units 11:45 11:45 11:45 WBC 9.2 (4.5-11.0) X10^3/uL RBC 4.60 (4.0-5.2) X10^6/uL Hgb 13.3 (12.0-16.0) g/dL Hct 40.8 (36-46) % MCV 88.7 (80-100) fL MCH 29.0 (26-34) PG MCHC 32.7 (30-36) % RDW 13.6 (11.6-14.8) % Plt Count 310 (150-400) X10^3/uL Neut % (Auto) 50.9 (50-75) % Lymph % (Auto) 37.5 (25-40) % [place] % (Auto) 9.2 (3-14) % Eos % (Auto) 2.1 (2-4) % Baso % (Auto) 0.3 (0-2) % Neut # (Auto) 4700 (1545-2692) /uL Lymph # (Auto) 3400 (1106-3065) /uL [place] # (Auto) 800 (0-900) /uL Eos # (Auto) 200 (0-450) /uL Baso # (Auto) 0 (0-100) /uL Sodium 138 (137-145) mmol/L Potassium 3.8 (3.4-5.1) mmol/L Chloride 106 (98-107) mmol/L Carbon Dioxide 17 L (22-32) mmol/L BUN 11 (7-17) mg/dL Creatinine 0.75 (0.52-1.04) mg/dL Estimated GFR > 60 (>60) mL/min BUN/Creatinine Ratio 14.7 (6-22) Glucose 114 H (80-110) mg/dL Calcium 8.6 (8.4-10.2) mg/dL Total Bilirubin 0.5 (0.2-1.3) mg/dL AST 31 (14-36) IU/L ALT 21 (<35) IU/L Alkaline Phosphatase 73 (38-126) U/L Troponin I < 0.012 (0.01-0.034) ng/mL Total Protein 6.9 (6.3-8.2) g/dL Albumin 4.2 (3.5-5.0) g/dL Globulin 2.7 (1.7-4.1) g/dL Albumin/Globulin Ratio 1.6 (1.0-2.8) Urine Color Urine Appearance Urine pH (4.5-8.0) Ur Specific [place] (1.000-1.035) Urine Protein (Negative) Urine Glucose (UA) (Negative) g/dL Urine Ketones (NEGATIVE) Urine Occult Blood (Negative) Urine Nitrate (Negative) Urine Bilirubin (NEGATIVE) Urine Urobilinogen (0.2) E.U./dL Ur Leukocyte Esterase (NEGATIVE) Urine RBC (0-5/HPF) Urine WBC (0-5/HPF) Urine Bacteria (None) Ur Culture Indicated? U Opiates 300ng/mL cut (Negative) Ur Oxycodone Screen (Negative) Urine Methadone Screen (Negative) Ur Barbiturates Screen (Negative) U Tricyclic Antidepress (Negative) Ur Phencyclidine Scrn (Negative) Ur Amphetamines Screen (Negative) U Methamphetamines Scrn (Negative) Ur MDMA Scrn (Ecstasy) (Negative) U Benzodiazepines Scrn (Negative) Urine Cocaine Screen (Negative) U Marijuana (THC) Screen (Negative) SARS-CoV-2 (PCR) (Negative) 09/08/21 09/08/21 09/08/21 Range/Units 12:16 12:24 14:15 WBC (4.5-11.0) X10^3/uL RBC (4.0-5.2) X10^6/uL Hgb (12.0-16.0) g/dL Hct (36-46) % MCV (80-100) fL MCH (26-34) PG MCHC (30-36) % RDW (11.6-14.8) % Plt Count (150-400) X10^3/uL Neut % (Auto) (50-75) % Lymph % (Auto) (25-40) % [place] % (Auto) (3-14) % Eos % (Auto) (2-4) % Baso % (Auto) (0-2) % Neut # (Auto) (4118-0221) /uL Lymph # (Auto) (0825-9145) /uL [place] # (Auto) (0-900) /uL Eos # (Auto) (0-450) /uL Baso # (Auto) (0-100) /uL Sodium (137-145) mmol/L Potassium (3.4-5.1) mmol/L Chloride (98-107) mmol/L Carbon Dioxide (22-32) mmol/L BUN (7-17) mg/dL Creatinine (0.52-1.04) mg/dL Estimated GFR (>60) mL/min BUN/Creatinine Ratio (6-22) Glucose (80-110) mg/dL Calcium (8.4-10.2) mg/dL Total Bilirubin (0.2-1.3) mg/dL AST (14-36) IU/L ALT (<35) IU/L Alkaline Phosphatase (38-126) U/L Troponin I (0.01-0.034) ng/mL Total Protein (6.3-8.2) g/dL Albumin (3.5-5.0) g/dL Globulin (1.7-4.1) g/dL Albumin/Globulin Ratio (1.0-2.8) Urine Color Yellow Urine Appearance Clear Urine pH 5.0 (4.5-8.0) Ur Specific [place] 1.020 (1.000-1.035) Urine Protein 1+ H (Negative) Urine Glucose (UA) Negative (Negative) g/dL Urine Ketones Trace H (NEGATIVE) Urine Occult Blood 1+ H (Negative) Urine Nitrate Negative (Negative) Urine Bilirubin Negative (NEGATIVE) Urine Urobilinogen 0.2 (0.2) E.U./dL Ur Leukocyte Esterase Negative (NEGATIVE) Urine RBC 0-1/hpf (0-5/HPF) Urine WBC None seen (0-5/HPF) Urine Bacteria None seen (None) Ur Culture Indicated? Cult not indicated U Opiates 300ng/mL cut Negative (Negative) Ur Oxycodone Screen Negative (Negative) Urine Methadone Screen Negative (Negative) Ur Barbiturates Screen Negative (Negative) U Tricyclic Antidepress Negative (Negative) Ur Phencyclidine Scrn Negative (Negative) Ur Amphetamines Screen Negative (Negative) U Methamphetamines Scrn Negative (Negative) Ur MDMA Scrn (Ecstasy) Negative (Negative) U Benzodiazepines Scrn Negative (Negative) Urine Cocaine Screen Negative (Negative) U Marijuana (THC) Screen Negative (Negative) SARS-CoV-2 (PCR) Negative (Negative) 09/08/21 Range/Units 14:25 WBC (4.5-11.0) X10^3/uL RBC (4.0-5.2) X10^6/uL Hgb (12.0-16.0) g/dL Hct (36-46) % MCV (80-100) fL MCH (26-34) PG MCHC (30-36) % RDW (11.6-14.8) % Plt Count (150-400) X10^3/uL Neut % (Auto) (50-75) % Lymph % (Auto) (25-40) % [place] % (Auto) (3-14) % Eos % (Auto) (2-4) % Baso % (Auto) (0-2) % Neut # (Auto) (5674-9203) /uL Lymph # (Auto) (9963-4866) /uL [place] # (Auto) (0-900) /uL Eos # (Auto) (0-450) /uL Baso # (Auto) (0-100) /uL Sodium (137-145) mmol/L Potassium (3.4-5.1) mmol/L Chloride (98-107) mmol/L Carbon Dioxide (22-32) mmol/L BUN (7-17) mg/dL Creatinine (0.52-1.04) mg/dL Estimated GFR (>60) mL/min BUN/Creatinine Ratio (6-22) Glucose (80-110) mg/dL Calcium (8.4-10.2) mg/dL Total Bilirubin (0.2-1.3) mg/dL AST (14-36) IU/L ALT (<35) IU/L Alkaline Phosphatase (38-126) U/L Troponin I 0.027 (0.01-0.034) ng/mL Total Protein (6.3-8.2) g/dL Albumin (3.5-5.0) g/dL Globulin (1.7-4.1) g/dL Albumin/Globulin Ratio (1.0-2.8) Urine Color Urine Appearance Urine pH (4.5-8.0) Ur Specific [place] (1.000-1.035) Urine Protein (Negative) Urine Glucose (UA) (Negative) g/dL Urine Ketones (NEGATIVE) Urine Occult Blood (Negative) Urine Nitrate (Negative) Urine Bilirubin (NEGATIVE) Urine Urobilinogen (0.2) E.U./dL Ur Leukocyte Esterase (NEGATIVE) Urine RBC (0-5/HPF) Urine WBC (0-5/HPF) Urine Bacteria (None) Ur Culture Indicated? U Opiates 300ng/mL cut (Negative) Ur Oxycodone Screen (Negative) Urine Methadone Screen (Negative) Ur Barbiturates Screen (Negative) U Tricyclic Antidepress (Negative) Ur Phencyclidine Scrn (Negative) Ur Amphetamines Screen (Negative) U Methamphetamines Scrn (Negative) Ur MDMA Scrn (Ecstasy) (Negative) U Benzodiazepines Scrn (Negative) Urine Cocaine Screen (Negative) U Marijuana (THC) Screen (Negative) SARS-CoV-2 (PCR) (Negative) Point of Care Testing Glucose POC 110 Urine Dip Bedside Urine Glucose Negative Bedside Urine Bilirubin - Negative Bedside Urine Ketone - Negative Urine Specific [place] 1.030 Bedside Urine Occult Blood +/- Bedside Urine pH 5.5 Bedside Urine Protein + 30 Bedside Urine Urobilinogen - Negative Bedside Urine Nitrite - Negative Bedside Urine Leukocytes - Negative Esterase Imaging Data CT scan - head: Radiologist's Impression: FINDINGS:? ? Surgical changes and devices:? Left chest wall 2 lead cardiac pacing device. ? Lungs and pleura:? Lungs are clear.? No pleural effusions or pneumothorax.? ? Mediastinum:? Mediastinal contours appear normal.? Heart size is normal.? ? Bones and chest wall:? No suspicious bony lesions.? Overlying soft tissues appear unremarkable.? ? IMPRESSION:? No acute cardiopulmonary process demonstrated radiographically. ? ? Dictated by: Roman Romeo M.D. on 09/08/2021 at 14:20? ?? CTA head and neck: Radiologist's Impression: FINDINGS:? Image quality:? Excellent.? ? BRAIN:? CSF spaces:? Ventricles are normal in size and shape.? Basal cisterns are patent.? No extra-axial fluid collections.? ? Brain:? No midline shift.? No intracranial bleeds or masses.? [place]-white matter interface appears intact.? ? Skull and face:? Calvarium and facial bones appear intact, without suspicious lesions.? Orbits appear normal.? ? Sinuses:? Sinuses and mastoids are clear.? ? HEAD CT ANGIOGRAPHY:? Anterior circulation:? Intracranial internal carotid arteries demonstrate ge neralized irregularity and calcification, with approximately 30% narrowing seen on each side..? The flow within the paired anterior cerebral arteries is normal and symmetric.? The flow within the middle cerebral arteries is normal and symmetric.? The anterior communicating artery is seen.? No aneurysms are seen.? ? Posterior circulation:? Visualized portions of the vertebral arteries demonstrate normal caliber, and join to form a normal appearing basilar artery.? Flow within the posterior cerebral arteries is normal and symmetric.? No aneurysms are seen.? ? NECK CT ANGIOGRAPHY:? Carotid system:? The great vessels demonstrate a conventional anatomy as they arise from the aortic arch.? The origins of the common carotid arteries appear patent.? The common carotid arteries demonstrate normal caliber and courses.? The bifurcation regions are both widely patent.? The internal carotid arteries demonstrate normal calibers and courses.? ? Posterior circulation:? The origins of the vertebral arteries both appear widely patent.? The more superior extracranial portions of both vertebral arteries also demonstrate normal caliber, with moderate tortuosity noted. ? Soft tissues:? Visualized neck soft tissues demonstrate no suspicious abnormalities.? ? Bones:? No suspicious bony lesions.? Visualized cervical spine appears normally aligned.? At least moderate cervical spine degenerative change can be seen. ? ? ? IMPRESSION:? No significant intracranial arterial abnormality is seen.? ? No significant carotid abnormality can be seen. ? If there is strong clinical suspicion for an acute stroke, please consider a brain MRI for further evaluation, as it is more sensitive (assuming that there is no contraindication to MRI). ? Tortuosity is seen of the vertebral arteries, without a focal stenosis seen. ? Any quantitative measurements of stenosis were performed using NASCET criteria.? ? ? Dictated by: Darius Ortiz M.D. on 09/08/2021 at 11:06? ?? ECG Data Interpretation: Atrial paced at a rate 62 MDM Narrative Medical decision making narrative: 81-year-old woman with minimal medical issues and no preceding symptoms with observed syncopal event while she is working in the yard with prolonged confusion and continued retrograde amnesia. No evidence of acute intracranial bleed, stroke, masses or tumors, acute coronary syndrome. Cardiac etiology is possible however she does have a pacemaker in place and I would not expect the prolonged confusion with cardiac syncope. Seizure is possible, she has no prior episode of seizures. There is not enough blood from initial draw to add on a prolactin level, she is not hyperreflexic, she did not lose bowel or bladder and there is no reported seizure activity.. COVID screening is negative and she has no clinical signs or symptoms of any type of infection. At this time I have no explanation for this otherwise healthy 81-year-old woman who had a syncopal episode with altered mental status and prolonged confusion with no evidence of cardiac, infectious disease etiology and no acute findings on CT. She does have a pacemaker that was interrogated and does not show acute arrhythmias as an etiology. Chest x-ray is Benign. Because of her age, prolonged confusion, uncertain diagnosis and still mild global weakness and confusion would prefer hospital admission overnight for observation. Likely benefit from brain MR to fully rule out stroke. Reviewed with Dr Rivera who will admit patient Discharge Plan Departure Patient Disposition: Admitted as Observation Clinical Impression: Syncope, Altered mental status Admit Date/Time: 09/08/21 17:09
[2021-09-08 14:44] LABS: COVID19 -Nasal RAPID Negative (Negative)
[2021-09-08 14:57] LABS: Troponin I 0.027 ng/mL (0.01-0.034)
--- NOTE | 2021-09-08 16:18 | PC.NURSE ---
pt had a syncopal episode at home.
--- NOTE | 2021-09-08 16:30 | DI.RAD.S_ITS ---
PROCEDURE: XR CHEST 1V INDICATIONS: altered mental status TECHNIQUE: One view of the chest was acquired. COMPARISON: [facility], CR, XR CHEST 2V, 05/22/2021, 10:50. FINDINGS: Surgical changes and devices: Overlying monitoring wires. Left-sided dual lead pacemaker. Lungs and pleura: Diffuse interstitial thickening, chronic. Small horizontal opacities in the right mid and lower lung. No other dense consolidation, pleural effusion, or pneumothorax. Mediastinum: Mediastinal contours appear normal. Heart size is normal. Mild central venous congestion. Bones and chest wall: No suspicious bony lesions. Overlying soft tissues appear unremarkable. IMPRESSION: 1. Chronic interstitial prominence and mild central venous congestion suggests CHF versus interstitial lung disease 2. Small areas of probable segmental atelectasis. Underlying infection is not excluded. Dictated by: Kathi Wu M.D. on 09/08/2021 at 16:51 Approved by: Kathi Wu M.D. on 09/08/2021 at 16:53
--- NOTE | 2021-09-08 17:11 | DI.ECHO.S_ITS ---
[facility]---------+ [facility] +---------+ : : [address] [place] : : : : [id number] : : : : Phone: [phone]+ Echocardiogram Report + + :Name: JACQUIE LOW Study Date: 09/09/2021 Height: 66 in : :[facility] ReadingLocation: Weight: 175 lb: : Gender: Female BSA: 1.9 m2 : :: 1940 Age: 81 yrs : :Reason For Study: SYNCOPE : :Ordering Physician: MOHIT, : :KARELY Performed By: Marissa Parrish : :Referring: KARELY RUEDA : + + Interpretation Summary The ejection fraction is estimated to be 60-65%. Diastolic function is indeterminate. The right ventricle is normal in size and function. The left atrium is moderately dilated. No significant valvular abnormalities. Unable to estimate PASP. Procedure: A two-dimensional transthoracic echocardiogram with color flow and Doppler was performed. The study quality was technically adequate. There is no prior echocardiogram noted for this patient. The patient was in sinus rhythm with heart rates between 61-66 bpm during the exam. Left Ventricle: The left ventricle is normal in size and wall thickness. The ejection fraction is estimated to be 60-65%. Diastolic function is indeterminate. Right Ventricle: The right ventricle is normal in size and function. There is a pacemaker lead in the right ventricle. Atria: The left atrium is moderately dilated. Right atrial size is normal. There is a catheter/pacemaker lead seen in the right atrium. There is no Doppler evidence for an interatrial shunt. Mitral Valve: The mitral valve leaflets appear mildly thickened, but open well. There is moderate mitral annular calcification. There is trace mitral regurgitation. Aortic Valve: The aortic valve opens well. There is no aortic valve stenosis. No aortic regurgitation is present. Tricuspid Valve: The tricuspid valve is normal in structure and function. There is trace tricuspid regurgitation. Pulmonic Valve: The pulmonic valve is not well visualized. There is no pulmonic valvular regurgitation. Great Vessels: The aortic root is normal size. The dimensions of the ascending aorta are normal. The IVC is of normal diameter and collapses greater than 50% with a sniff. This suggests a low right atrial pressure of 3 mm Hg. Pericardium/ Pleura There is no pericardial effusion. There is no pleural effusion. MMode/2D Measurements & Calculations LVIDd: 5.0 cm LVOT diam: 2.1 cm LVIDs: 3.2 cm Ao root diam: 3.5 cm FS: 36.2 % asc Aorta Diam: 3.5 cm IVSd: 0.86 cm Ao Arch Diam (Prox Trans): 2.6 cm LVPWd: 1.1 cm LV carbajal. diameter/BSA (cm/m^2): 2.7 LV sys. diameter/BSA (cm/m^2): 1.7 LA A2 area: 25.5 cm2 RA long axis: 4.6 cm LA A4 area: 22.2 cm2 RA area: 15.4 cm2 LA length (vol): 5.9 cm RA vol: 43.5 ml LA vol: 82.3 ml RA : 23.0 ml/m2 LA vol index: 43.6 ml/m2 IVC diam: 1.8 cm RVD1 (basal): 3.3 cm RVD2 (mid): 3.1 cm TAPSE: 1.8 cm Doppler Measurements & Calculations Ao V2 max: 142.2 cm/sec LVOT Max Maximo: 100.6 cm/sec Ao V2 mean: 95.9 cm/sec LV V1 max P.1 mmHg Ao max P.1 mmHg LV V1 VTI: 21.9 cm Ao mean P.1 mmHg HECTOR(I,D): 2.5 cm2 Ao V2 VTI: 31.5 cm HECTOR(V,D): 2.5 cm2 sev ratio: 0.69 HECTOR indexed to BSA (cm^2/m^2): 1.3 MV E max maximo: 57.9 cm/sec TR max maximo: 222.9 cm/sec MV A max maximo: 74.4 cm/sec TR max P.9 mmHg MV E/A: 0.78 PA pr(Accel): 27.6 mmHg Med Peak E' Maximo: 5.6 cm/sec E/E' med: 10.4 Lat Peak E' Maximo: 6.6 cm/sec E/E' lat: 8.8 E/e' average: 9.6 MV dec time: 0.25 sec SV(LVOT): 77.8 ml Reading Physician:02:04 PM
--- NOTE | 2021-09-08 17:12 | DI.US.S_ITS ---
PROCEDURE: US CAROTID DOPPLER BI INDICATIONS: syncope TECHNIQUE: Color and pulse Doppler interrogation was performed of both carotid systems, with image documentation and velocity measurements. COMPARISON: None. FINDINGS: Stenosis calculations are based on SRU (Society of Radiologists in Ultrasound) criteria. The flow velocities and the arterial waveforms are normal within both carotid arterial systems. Atherosclerotic plaque is seen on both sides. The estimated degree of internal carotid artery stenosis is less than 50%. Antegrade flow is confirmed within both vertebral arteries. IMPRESSION: No hemodynamically significant stenosis is seen. Atherosclerotic plaque is noted bilaterally. Dictated by: Darius Ortiz M.D. on 09/08/2021 at 17:25 Approved by: Darius Ortiz M.D. on 09/08/2021 at 17:26
--- NOTE | 2021-09-08 18:43 | P.HP_ITS ---
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 She was in outside and cutting bushes then collapsed , her as a witnessed and she was not responsive for 2-3 minutes. The he called 911 in a mean time became barely responsive, 911 arrived in 10 min. Pt cannot recall anything up until she was in ER. She denies chest apin, shortness of breath, cough, fever, chills , diarrhea, dehydration prior to admission. She stated that she had similar episode of syncope in the past . Per : later on she was extremely confused with a question of left-sided deficits but overall weakness. She is vaccinated x4 against COVID, no recent traveling or sick contacts. Patient History Medical History (Updated 09/08/21 @ 17:05 by Julianne Mann MD) Acid reflux Asthma Atherosclerotic vascular disease Hernia History of Holter monitoring History of pneumonia Hyperlipidemia Mitral valve regurgitation Palpitations Pedal edema Polymyalgia rheumatica Sinus bradycardia Sleep apnea SVT (supraventricular tachycardia) Uncomplicated asthma Ventral hernia Surgical History Cataract extraction status of left eye H/O bilateral cataract extraction Previous section Family & Social History Family History Father Cancer Social History: household members spouse Safety & Behavioral: Feels Safe in Current Yes Environment Been Physically Hurt or No Threatened By a Person Tobacco & Substance use: Smoking Status Never smoker alcohol intake frequency 0-2 drinks per day Substance Use Type does not use Meds Home Medications and Allergies Home Medications Medication Instructions Recorded Confirmed Type aspirin 81 mg chewable tablet 81 mg PO DAILY 10/24/17 01/16/18 History omega 6-neb-kye-fish oil 910 1 cap PO DAILY 12/12/17 01/16/18 History mg-1,400 mg capsule Allergies Allergy/AdvReac Type Severity Reaction Status Date / Time No Known Drug Allergies Allergy Verified 09/08/21 11:47 Review of Systems Review of Systems ROS: Yes All systems reviewed with the patient and are negative except as otherwise documented Eyes Eyes: Reports as per HPI ENT Ears, Nose, Mouth, and Throat: Yes as per HPI Cardiovascular Cardiovascular: Reports as per HPI Respiratory Respiratory: Reports as per HPI Gastrointestinal Gastrointestinal: Reports as per HPI Genitourinary Genitourinary: Reports as per HPI Musculoskeletal Musculoskeletal: Reports as per HPI Integumentary/Breasts Skin/Breast: Reports as per HPI Neurologic Neurologic: Reports as per HPI Psychiatric Psychiatric: Reports as per HPI Exam Vital Signs (past 8 hours): - 09/08/21 11:59 09/08/21 12:34 09/08/21 13:00 Temperature 97.4 F L Pulse Rate 61 61 61 Respiratory Rate 12 25 H 19 Blood Pressure 144/69 H Pulse Oximetry 93 97 98 Oxygen Delivery Method Room Air 09/08/21 13:30 09/08/21 14:00 09/08/21 14:02 Temperature Pulse Rate 60 62 Respiratory Rate 29 H 24 Blood Pressure 145/73 H Pulse Oximetry 97 98 Oxygen Delivery Method 09/08/21 14:02 09/08/21 14:30 09/08/21 15:00 Temperature Pulse Rate 63 61 61 Respiratory Rate 28 H 26 H 31 H Blood Pressure Pulse Oximetry 97 97 97 Oxygen Delivery Method 09/08/21 15:30 09/08/21 16:00 09/08/21 16:13 Temperature Pulse Rate 61 62 Respiratory Rate 18 25 H Blood Pressure 153/72 H Pulse Oximetry 97 98 Oxygen Delivery Method 09/08/21 16:13 09/08/21 16:30 09/08/21 16:30 Temperature Pulse Rate 61 61 Respiratory Rate 23 26 H Blood Pressure 138/70 Pulse Oximetry 98 98 Oxygen Delivery Method 09/08/21 17:00 09/08/21 17:00 09/08/21 17:30 Temperature Pulse Rate 63 Respiratory Rate 21 Blood Pressure 142/65 H 138/65 Pulse Oximetry 97 Oxygen Delivery Method 09/08/21 17:30 09/08/21 17:43 09/08/21 17:43 Temperature Pulse Rate 63 62 Respiratory Rate 31 H 23 Blood Pressure 164/79 H Pulse Oximetry 97 99 Oxygen Delivery Method 09/08/21 17:45 09/08/21 17:45 09/08/21 18:00 Temperature Pulse Rate 62 Respiratory Rate 27 H Blood Pressure 148/71 H 149/79 H Pulse Oximetry 98 Oxygen Delivery Method 09/08/21 18:00 09/08/21 18:30 09/08/21 18:30 Temperature Pulse Rate 61 63 Respiratory Rate 22 29 H Blood Pressure 153/72 H Pulse Oximetry 95 98 Oxygen Delivery Method Oxygen Delivery Method Room Air Const General: cooperative and well developed Orientation: alert, awake and oriented x3 HENVA Head: normocephalic and atraumatic Ears: external ears normal Nose: external nose normal Mouth: oral mucosae normal Eyes Pupils: PERRL EOM: EOM intact bilaterally Neck Neck: full ROM and supple Thyroid: thyroid normal Chest Chest: normal inspection of the chest Resp Auscultation: clear to auscultation bilaterally Cardio Rate: regular rate Rhythm: regular rhythm GI Inspection: normal to inspection Palpation: soft and No tender Auscultation: normal bowel sounds Back/Spine/Pelvis Back: normal to inspection Skin General: no rashes or lesions noted Neuro General: patient alert, patient awake, patient oriented x3, gait normal, moves all extremities and no focal motor deficits Cranial Nerves: CN's II-XI intact bilaterally Extrem General: normal to inspection, full ROM and no clubbing, cyanosis or edema Psych Mental Status: mental status grossly normal Mood: congruent mood Affect: normal affect Objective Labs Result Diagrams: 09/08/21 11:45 09/08/21 11:45 Labs: Laboratory Results - last 24 hr 09/08/21 09/08/21 09/08/21 11:45 11:45 11:45 WBC 9.2 RBC 4.60 Hgb 13.3 Hct 40.8 MCV 88.7 MCH 29.0 MCHC 32.7 RDW 13.6 Plt Count 310 Neut % (Auto) 50.9 Lymph % (Auto) 37.5 [place] % (Auto) 9.2 Eos % (Auto) 2.1 Baso % (Auto) 0.3 Neut # (Auto) 4700 Lymph # (Auto) 3400 [place] # (Auto) 800 Eos # (Auto) 200 Baso # (Auto) 0 Sodium 138 Potassium 3.8 Chloride 106 Carbon Dioxide 17 L BUN 11 Creatinine 0.75 Estimated GFR > 60 BUN/Creatinine Ratio 14.7 Glucose 114 H Calcium 8.6 Total Bilirubin 0.5 AST 31 ALT 21 Alkaline Phosphatase 73 Troponin I < 0.012 Total Protein 6.9 Albumin 4.2 Globulin 2.7 Albumin/Globulin Ratio 1.6 Urine Color Urine Appearance Urine pH Ur Specific [place] Urine Protein Urine Glucose (UA) Urine Ketones Urine Occult Blood Urine Nitrate Urine Bilirubin Urine Urobilinogen Ur Leukocyte Esterase Urine RBC Urine WBC Urine Bacteria Ur Culture Indicated? U Opiates 300ng/mL cut Ur Oxycodone Screen Urine Methadone Screen Ur Barbiturates Screen U Tricyclic Antidepress Ur Phencyclidine Scrn Ur Amphetamines Screen U Methamphetamines Scrn Ur MDMA Scrn (Ecstasy) U Benzodiazepines Scrn Urine Cocaine Screen U Marijuana (THC) Screen SARS-CoV-2 (PCR) 09/08/21 09/08/21 09/08/21 12:16 12:24 14:15 WBC RBC Hgb Hct MCV MCH MCHC RDW Plt Count Neut % (Auto) Lymph % (Auto) [place] % (Auto) Eos % (Auto) Baso % (Auto) Neut # (Auto) Lymph # (Auto) [place] # (Auto) Eos # (Auto) Baso # (Auto) Sodium Potassium Chloride Carbon Dioxide BUN Creatinine Estimated GFR BUN/Creatinine Ratio Glucose Calcium Total Bilirubin AST ALT Alkaline Phosphatase Troponin I Total Protein Albumin Globulin Albumin/Globulin Ratio Urine Color Yellow Urine Appearance Clear Urine pH 5.0 Ur Specific [place] 1.020 Urine Protein 1+ H Urine Glucose (UA) Negative Urine Ketones Trace H Urine Occult Blood 1+ H Urine Nitrate Negative Urine Bilirubin Negative Urine Urobilinogen 0.2 Ur Leukocyte Esterase Negative Urine RBC 0-1/hpf Urine WBC None seen Urine Bacteria None seen Ur Culture Indicated? Cult not indicated U Opiates 300ng/mL cut Negative Ur Oxycodone Screen Negative Urine Methadone Screen Negative Ur Barbiturates Screen Negative U Tricyclic Antidepress Negative Ur Phencyclidine Scrn Negative Ur Amphetamines Screen Negative U Methamphetamines Scrn Negative Ur MDMA Scrn (Ecstasy) Negative U Benzodiazepines Scrn Negative Urine Cocaine Screen Negative U Marijuana (THC) Screen Negative SARS-CoV-2 (PCR) Negative 09/08/21 14:25 WBC RBC Hgb Hct MCV MCH MCHC RDW Plt Count Neut % (Auto) Lymph % (Auto) [place] % (Auto) Eos % (Auto) Baso % (Auto) Neut # (Auto) Lymph # (Auto) [place] # (Auto) Eos # (Auto) Baso # (Auto) Sodium Potassium Chloride Carbon Dioxide BUN Creatinine Estimated GFR BUN/Creatinine Ratio Glucose Calcium Total Bilirubin AST ALT Alkaline Phosphatase Troponin I 0.027 Total Protein Albumin Globulin Albumin/Globulin Ratio Urine Color Urine Appearance Urine pH Ur Specific [place] Urine Protein Urine Glucose (UA) Urine Ketones Urine Occult Blood Urine Nitrate Urine Bilirubin Urine Urobilinogen Ur Leukocyte Esterase Urine RBC Urine WBC Urine Bacteria Ur Culture Indicated? U Opiates 300ng/mL cut Ur Oxycodone Screen Urine Methadone Screen Ur Barbiturates Screen U Tricyclic Antidepress Ur Phencyclidine Scrn Ur Amphetamines Screen U Methamphetamines Scrn Ur MDMA Scrn (Ecstasy) U Benzodiazepines Scrn Urine Cocaine Screen U Marijuana (THC) Screen SARS-CoV-2 (PCR) Assessment & Plan Assessment & Plan narrative: Syncope - observation -orthostatics - telemetry monitoring -neurochecks -consider contacting her cardiology Dr Conner in terms of pacemaker interrogation? she stated that it was checked 6 m/ago her labs unremarkable except ketones in urine could be contributing some degree dehydration? - start IVF - ECHO CTA is negative for obstruction Hyperlipidemia -LP in AM -continue home meds DVT prophylaxis; lovenox Code status; full discussed with ER physician, pt and Time Spent With Patient Critical Care time: I spent a total of [] minutes of critical care time on this patient's care today; this time is exclusive of procedural time.
[2021-09-08] MEDS: SODIUM CHLORIDE 0.9% 1,000 ML 100 ML IV (20:36)
[2021-09-08 23:48] LABS: Hemoglobin A1C% w Est Avg Glu 5.9 % (4.0-6.0)
[2021-09-09] MEDS: ACETAMINOPHEN 325 MG TABLET 650 MG PO (00:14)
[2021-09-09 00:25] VITALS: BP 145/69; PULSE 63; RESP 18; TEMP 36.2; O2SAT 96
[2021-09-09 04:36] VITALS: BP 142/89; PULSE 64; RESP 18; TEMP 36.6; O2SAT 94
[2021-09-09 05:39] LABS: Add Manual Diff / Slide Review NO; Basophils Absolute Auto 0 /uL (0-100); Basophils Percent Auto 0.4 % (0-2); Eosinophils Absolute Auto 200 /uL (0-450); Eosinophils Percent Auto 1.9 % (2-4); Hematocrit 38.3 % (36-46); Hemoglobin 12.9 g/dL (12.0-16.0); Lymphocytes Absolute Auto 2300 /uL (1100-4500); Lymphocytes Percent Auto 27.2 % (25-40); Mean Corpuscular HGB Conc 33.7 % (30-36); Mean Corpuscular Hemoglobin 29.2 PG (26-34); Mean Corpuscular Volume 86.7 fL (80-100); Monocytes Absolute Auto 600 /uL (0-900); Monocytes Percent Auto 7.1 % (3-14); Neutrophils Absolute Auto 5300 /uL (1500-7000); Neutrophils Percent Auto 63.4 % (50-75); Platelet Count 255 X10^3/uL (150-400); Red Blood Cell Count 4.42 X10^6/uL (4.0-5.2); Red Cell Distribution Width 13.5 % (11.6-14.8); White Blood Cell Count 8.4 X10^3/uL (4.5-11.0)
[2021-09-09 05:56] LABS: Alanine Aminotransferase 19 IU/L (<35); Albumin 3.7 g/dL (3.5-5.0); Albumin Globulin Ratio 1.5 (1.0-2.8); Alkaline Phosphatase 68 U/L (38-126); Aspartate Aminotransferase 31 IU/L (14-36); Bilirubin Total 0.5 mg/dL (0.2-1.3); Bilirubin Unconjugated 0.4 mg/dL (0.0-1.1); Blood Urea Nitrogen 8 mg/dL (7-17); Calcium 8.5 mg/dL (8.4-10.2); Carbon Dioxide 27 mmol/L (22-32); Chloride 106 mmol/L (98-107); Estimated Glomerular Filt Rate > 60 mL/min (>60); Globulin 2.4 g/dL (1.7-4.1); Glucose 99 mg/dL (80-110); HEMOLYSIS < 15 (0-50); Magnesium 2.2 mg/dL (1.6-2.3); Potassium 3.2 mmol/L (3.4-5.1); Sodium 138 mmol/L (137-145); Total Protein 6.1 g/dL (6.3-8.2)
[2021-09-09 05:58] LABS: Cholesterol 156 mg/dL (140-199); HDL Cholesterol 51 mg/dL (40-60); LDL Cholesterol Calculated 68 mg/dL (<100); Triglycerides 186 mg/dL (35-150)
[2021-09-09 06:00] VITALS: BP 129/81; BP 152/84; BP 155/85; PULSE 63; PULSE 77; PULSE 78
[2021-09-09 08:07] VITALS: BP 132/75; BP 137/78; BP 161/73; PULSE 65; PULSE 66; PULSE 77
[2021-09-09 08:08] VITALS: BP 161/73; PULSE 65; RESP 17; TEMP 36.9; O2SAT 96
[2021-09-09] MEDS: ASPIRIN 81 MG CHEW TAB PO (08:43)
[2021-09-09] MEDS: ENOXAPARIN 40 MG/0.4 ML SYRINGE SUBCUT (08:43)
[2021-09-09] MEDS: FISH OIL 1,000 MG CAPSULE 1000 MG PO (08:43)
[2021-09-09] MEDS: POTASSIUM CHLORIDE 20 MEQ TAB 40 MEQ PO (10:09)
[2021-09-09 12:06] VITALS: BP 133/70; PULSE 70; RESP 16; TEMP 36.5; O2SAT 95
--- NOTE | 2021-09-09 15:19 | CM.DANOTE ---
DCP/Assessment: Reviewed chart. Patient is a 81yr old female admitted to [facility] with stroke like symptoms. PCP is Sil Martínez. Primary payor is 1)Medicare 2)[employer]. Met with patient explained CM/SW role. Patient reports that she is primarily I in all ADL's. Patient had ECHO this AM. Per provider is negative patient expected to discharge home today. Patient hopes to d/c home today because she has family visiting from out of state. P: Home when medically stable. Aksed RN to check to see if ECHO report back so that patient can d/c as soon a possible per her request. YARITZA Discharge Planning/Care Management CM Discharge Assessment Start: 09/09/21 15:13 Freq: Status: Active Protocol: Document 09/09/21 15:13 YARITZA (Rec: 09/09/21 15:19 YARITZA [id number]) Discharge Planning Assessment Assigned Estate Tax Examiner SHANE White Advance Directives? No History Provided By Patient Prior Living Arrangements House Household Members spouse Type of transporation used prior to Drives own vehicle admit Independent with ADL's Yes Is patient alert and oriented? Yes Caregiver for Another No Comment Patient uses no DME at baseline. Barriers to Discharge No Discharge Plan Home Transportation Arrangement Family to provide transport. Referrals Initiated None needed Whiteboard Updated in Patient Room with Yes name and ext. # of Estate Tax Examiner Review Status In Process Next Review Type Continued Stay Review
--- NOTE | 2021-09-09 20:54 | P.DS_ITS ---
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 She was in outside and cutting bushes then collapsed , her as a witnessed and she was not responsive for 2-3 minutes. The he called 911 in a mean time became barely responsive, 911 arrived in 10 min. Pt cannot recall anything up until she was in ER. She denies chest apin, shortness of breath, cough, fever, chills , diarrhea, dehydration prior to admission. She stated that she had similar episode of syncope in the past . Per : later on she was extremely confused with a question of l eft-sided deficits but overall weakness. She is vaccinated x4 against COVID, no recent traveling or sick contacts. Discharge Providers Provider Date of admission: 09/08/21 17:09 Discharge Date: 09/09/21 Primary care physician: Sil Martínez MD Discharge provider: Ricky Mary MD Summary Hospital Course Discharge Diagnosis: 1. Syncope 2. s/p PPM for bradycardia 3. Hyperlipidemia Hospital Course: Ms. Hameed was admitted to the hospital after a syncopal episode. She had reassuring workup with no significant lab abnormalities. She had no orthostatics. Pacemaker was interrogated which showed no significant abnormality. ECHO angelo was reassuring. She was feeling improved and encouraged to stay hydrated and follow up with her PCP. Exam Vital Signs (past 8 hours): Oxygen Delivery Method Room Air Oxygen Flow Rate 0 Narrative Exam Narrative: GEN: no acute distress CV: regular rate and rhythm, no murmurs PULM: clear bilaterally ABD: soft, nontender, nondistended Objective Labs Result Diagrams: 09/09/21 04:55 09/09/21 04:55 [facility] Medical History (Updated 09/08/21 @ 17:05 by Julianne Mann MD) Acid reflux Asthma Atherosclerotic vascular disease Hernia History of Holter monitoring History of pneumonia Hyperlipidemia Mitral valve regurgitation Palpitations Pedal edema Polymyalgia rheumatica Sinus bradycardia Sleep apnea SVT (supraventricular tachycardia) Uncomplicated asthma Ventral hernia Surgical History Cataract extraction status of left eye H/O bilateral cataract extraction Previous section Family History Father Cancer Social History household members: spouse Smoking Status: Never smoker alcohol intake: current Discharge Plan Discharge Plan Patient Disposition: Home Provider Discharge Comment: Ms. Hameed came in to the hospital after an episode of syncope (passing out). She did well in the hospital. She had an ECHO done which was reassuring and showed no significant issues. She had her pacemaker evaluated which also was functioning well. She should follow up with her oracle database consultant and PCP within two weeks. Discharge orders & Medications Prescriptions: New aspirin 81 mg Tablet,Chewable 81 mg PO DAILY Qty: 30 0RF Continued omega 2-tpu-yqp-fish oil 910-1,400 mg Capsule 1 cap PO DAILY rosuvastatin 5 mg tablet 1 tab PO DAILY Label Comments: take 1 tablet by mouth once daily albuterol sulfate 90 mcg/actuation HFA aerosol inhaler 2 inh INHALATION DAILY PRN (Reason: Shortness Of Breath) Label Comments: inhale 2 puffs by mouth and INTO THE LUNGS every 4 to 6 hours if ... (REFER TO PRESCRIPTION NOTES). Follow up/Referrals: Sil Martínez MD [Primary Care Provider] - Diet/Activity/Treatments Diet: Regular Discharge Data Primary Care Provider: Sil Martínez Attending Provider: Lucretia Moreno VTE Deep Vein Thrombosis/Pulmonary Embolism Present on Admission: No
== END 2021-09-09 15:21 | disposition home or self-care (01) ==
LOC: ED 16:28 → AC 17:38
PROVIDERS: Nurse Practitioner Family; Admitting Provider Internal Medicine; Emergency Provider Emergency Medicine; Family Provider Internal Medicine; PCP Internal Medicine; Referring Provider Emergency Medicine; Visit Provider Internal Medicine
DX: R55 Syncope and collapse (principal); E78.5 Hyperlipidemia, unspecified; J45.909 Unspecified asthma, uncomplicated; R00.1 Bradycardia, unspecified; Z20.822 Contact with and (suspected) exposure to COVID-19; Z95.0 Presence of cardiac pacemaker
CPT/HCPCS: 36415; 70450; 70496; 70498; 71045; 80048; 80053; 80061; 80076; 80305; 81001; 81003; 82962; 83036; 83735; 84484; 85025; 87040; 87635; 93005; 93306; 93880; 96372; 99284; 99285; C9803; G0378; A9270; J1650

== ENCOUNTER → 2021-10-02 09:42 | Outpatient (CLI) | payer MEDICARE, SELFPAY ==
[2021-09-08 17:21] VITALS: BMI 29.0
--- NOTE | 2021-10-02 | DI.CT.S_ITS ---
PROCEDURE: CT ANGIO CHEST PE PROTOCOL INDICATIONS: Shortness of breath TECHNIQUE: After the administration of intravenous contrast, 2 mm thick sections acquired from the pulmonary apices to the posterior costophrenic angles. 3-dimensional maximum intensity projection (MIP) coronal and sagittal reformats were then acquired through the thorax. For radiation dose reduction, the following was used: automated exposure control, adjustment of mA and/or kV according to patient size. COMPARISON: None. FINDINGS: Image quality: Excellent. Pulmonary arteries: Pulmonary arteries are normal in size, and demonstrate no intraluminal filling defects to suggest central pulmonary embolism. Lungs and pleura: Mild dependent atelectasis in the posterior lungs bilaterally. No acute consolidation. No pleural effusions or pneumothorax. Central and peripheral airways are patent. Mediastinum: Heart size is normal, without pericardial effusion. No mediastinal or hilar adenopathy. Thoracic aorta is normal in caliber and enhancement. Esophagus is normal in caliber. Small hiatal hernia. Bones and chest wall: A cardiac pacemaker is seen with pulse generator in the left chest. No suspicious bony lesions. Ribs and thoracic spine appear intact throughout. The included thyroid is unremarkable. No axillary or supraclavicular adenopathy. Abdomen: A 7 cm simple appearing cyst is seen at the superior pole of the right kidney. A few diverticula are seen in the included colon. There is a fatty infiltration are seen in the liver. IMPRESSION: 1. No acute pulmonary embolus. No acute abnormality is seen in the chest. 2. Small hiatal hernia. Colonic diverticulosis. 3. Geographic fatty infiltration of the liver. Dictated by: Lg Lopez M.D. on 10/02/2021 at 10:08 Approved by: Lg Lopez M.D. on 10/02/2021 at 10:19
--- NOTE | 2021-10-02 | DI.US.S_ITS ---
PROCEDURE: US PERIPH VENOUS LOW EXTREM BI INDICATIONS: Short of breath TECHNIQUE: Real-time imaging, as well as color and pulse Doppler interrogation, were performed of the deep veins of both legs from the inguinal ligament to the popliteal fossa. COMPARISON: None. FINDINGS: Right: The common femoral, femoral and popliteal veins are normally compressible, and free of intraluminal thrombus. Color and pulse Doppler demonstrate normal phasic intravascular flow. There is normal augmentation response to distal compression maneuver. Left: The common femoral, femoral and popliteal veins are normally compressible, and free of intraluminal thrombus. Color and pulse Doppler demonstrate normal phasic intravascular flow. There is normal augmentation response to distal compression maneuver. IMPRESSION: Negative for deep venous thrombosis. Dictated by: Darius Ortiz M.D. on 10/02/2021 at 9:41 Approved by: Darius Ortiz M.D. on 10/02/2021 at 9:41
== END ==
PROVIDERS: Family Provider Internal Medicine; PCP Internal Medicine; Referring Provider Internal Medicine; Visit Provider Internal Medicine
DX: R06.02 Shortness of breath (principal); M79.662 Pain in left lower leg; R79.89 Other specified abnormal findings of blood chemistry; K44.9 Diaphragmatic hernia without obstruction or gangrene; K57.30 Diverticulosis of large intestine without perforation or abscess without bleeding; K76.0 Fatty (change of) liver, not elsewhere classified
CPT/HCPCS: 71275; 93970

== ENCOUNTER → 2021-10-08 14:37 | Outpatient (CLI) | payer MEDICARE, SELFPAY ==
[2021-09-08 17:21] VITALS: BMI 29.0
--- NOTE | 2021-10-08 | DI.RAD.S_ITS ---
PROCEDURE: XR ACUTE ABDOMEN SERIES INDICATIONS: low abd pain TECHNIQUE: One view chest and two views of the abdomen were acquired. COMPARISON: None. FINDINGS: Surgical changes and devices: None. Chest: There is a cardiac pacemaker. There is interstitial prominence. Lungs are clear. Heart size is normal. No pleural effusions. No pneumoperitoneum. Abdomen: Bowel gas pattern is normal. No suspicious calcifications. Visualized solid organ contours appear normal. Bones: No suspicious bony lesions. IMPRESSION: Normal bowel gas pattern. If clinical symptoms persist. CT is suggested for further evaluation. Dictated by: Pura Peng M.D. on 10/08/2021 at 17:30 Approved by: Pura Peng M.D. on 10/08/2021 at 17:32
== END ==
PROVIDERS: Family Provider Internal Medicine; PCP Internal Medicine; Referring Provider Internal Medicine; Visit Provider Internal Medicine
DX: R10.30 Lower abdominal pain, unspecified (principal); Z95.0 Presence of cardiac pacemaker
CPT/HCPCS: 74022

== ENCOUNTER → 2022-08-07 09:44 | Outpatient (CLI) | payer MEDICARE, SELFPAY ==
[2021-09-08 17:21] VITALS: BMI 29.0
--- NOTE | 2022-08-07 09:46 | DI.MG.S_ITS ---
BILATERAL DIGITAL SCREENING MAMMOGRAM 3D/2D WITH CAD: 08/07/2022 CLINICAL: Routine screening. Comparison is made to exams dated: 07/07/2020 mammogram, 01/22/2015 mammogram, and 06/02/2012 mammogram - [facility]. There are scattered areas of fibroglandular density in both breasts (category b / 25%-50% glandular tissue). Current study was also evaluated with a Computer Aided Detection (CAD) system. No significant masses, calcifications, or other findings are seen in either breast. There has been no significant interval change. IMPRESSION: NEGATIVE There is no mammographic evidence of malignancy. A 1 year screening mammogram is recommended. Based on the Tyrer Cuzick model (a risk assessment model) the patient's lifetime risk is 2.0% and her 10 year risk is 0.0%. According to the ACR, ACS, and NCCN guidelines, an annual breast MRI exam along with mammogram is recommended if the patient's lifetime risk is 20% or greater. This exam was interpreted at Station ID: [id number]. NOTE: For mammograms, a report in lay terms will be sent to the patient. Approximately 15% of breast malignancies will not be visualized mammographically. In the management of a palpable breast mass, a negative mammogram must not discourage biopsy of a clinically suspicious lesion. Electronically Signed By: Shelby redding/viola:08/09/2022 08:32:21 letter sent: Normal Exam ACR BI-RADS Category 1: Negative [id number]
== END ==
PROVIDERS: PCP Internal Medicine; Referring Provider Internal Medicine; Visit Provider Internal Medicine
DX: Z12.31 Encounter for screening mammogram for malignant neoplasm of breast (principal)
CPT/HCPCS: 77063; 77067

== ENCOUNTER 2023-03-26 10:38 | Emergency (ER) | payer MEDICARE, SELFPAY ==
[2021-09-08 17:21] VITALS: BMI 29.0
[2023-03-26] VITALS (12 sets, daily range): BP systolic 120–175; BP diastolic 60–85; PULSE 62–80; RESP 18–45; TEMP 36.6; O2SAT 92–100; BMI 29.2
--- NOTE | 2023-03-26 11:06 | ED.GENADULT ---
HPI - General Adult General Chief complaint: Abdominal Pain Stated complaint: hernia pain T-7/ Time Seen by Provider: 03/26/23 11:00 Source: patient and family Mode of arrival: Ambulatory History of Present Illness HPI narrative: Patient is an 82-year-old female who is here for evaluation of a ventral hernia that has been hurting her for the past week. States has been worsening over the past couple days. She did see someone at her primary doctor within the past couple days in his scheduled to see her actual primary doctor next week. She states over the past 24 hours she is seen redness over the area. It is tender to the touch. No vomiting. No change in bowel habits. She has had a bowel movement within the past 24 hours. No problems urinating. She stated that she noticed the discomfort when she leaned against the bathroom counter. Related Data Home Medications Medication Instructions Recorded Confirmed omega 0-mkp-pgm-fish oil 910 1 cap PO DAILY 12/12/17 09/08/21 mg-1,400 mg capsule albuterol sulfate 90 mcg/actuation 2 inh inhalation DAILY PRN 09/08/21 09/08/21 aerosol inhaler Shortness Of Breath rosuvastatin 5 mg tablet 1 tab PO DAILY 09/08/21 09/08/21 Previous Rx's Medication Instructions Recorded aspirin 81 mg chewable tablet 81 mg PO DAILY #30 tabs 09/09/21 doxycycline hyclate 100 mg tablet 100 mg PO BID 7 days #14 tabs 03/26/23 Allergies Allergy/AdvReac Type Severity Reaction Status Date / Time No Known Drug Allergies Allergy Verified 09/08/21 11:47 Review of Systems Constitutional Constitutional: Reports system reviewed and no additional complaints, except as documented Respiratory Respiratory: Reports system reviewed and no additional complaints, except as documented Gastrointestinal Gastrointestinal: Reports system reviewed and no additional complaints, except as documented Genitourinary Genitourinary: Reports system reviewed and no additional complaints, except as documented Integumentary/Breasts Skin/Breast: Reports system reviewed and no additional complaints, except as documented Patient History Medical History (Updated 03/26/23 @ 13:13 by Shiv Mac DO) Uncomplicated asthma Atherosclerotic vascular disease Hernia Pedal edema Acid reflux History of Holter monitoring SVT (supraventricular tachycardia) Sleep apnea Sinus bradycardia Asthma Hyperlipidemia Palpitations Mitral valve regurgitation History of pneumonia Ventral hernia Polymyalgia rheumatica Surgical History H/O bilateral cataract extraction Cataract extraction status of left eye Previous section Family History Father Cancer Social History household members: spouse Smoking Status: Never smoker alcohol intake: current Smoking Status: Never smoker alcohol intake frequency: 0-2 drinks per day Substance Use Type: does not use Exam Initial Vital Signs Initial Vital Signs: Vital Signs Pulse Rate 62 03/26/23 10:43 Pulse Oximetry 100 03/26/23 10:43 Const General: cooperative, comfortable and No ill appearing HENMT Head: normal to inspection and normocephalic Resp Effort & Inspection: normal respiratory effort Auscultation: clear to auscultation bilaterally Cardio Rate: regular rate GI Inspection: non-distended Palpation: soft, No firm, No guarding, hernia (Ventral), pulsatile mass and tender Skin Other: Redness located periumbilical. Warm to the touch. No ulcerations. No pustules. Extrem General: normal to inspection Procedures Abscess I/D I&D #1: Site: abdomen Local Anesthetic: lidocaine 1% Amount of anesthesia used (mL): 10 Technique: needle aspiration Amount of fluid expressed (mL): 10 Irrigation: No Packing used?: none Course Orders Ordered: ED Orders 03/26/23 10:52 Complete Blood Count AUTO DIFF Stat Comprehensive Metabolic Panel Stat Lipase Stat 03/26/23 11:07 CT abdomen pelvis w con Stat 03/26/23 11:28 Urine Microscopic Stat Vital Signs Vital signs: Vital Signs - 8 hr 03/26/23 10:43 03/26/23 10:45 03/26/23 10:45 Temperature Pulse Rate 62 Respiratory Rate Blood Pressure 175/85 H Pulse Oximetry 100 99 Oxygen Delivery Method 03/26/23 10:47 03/26/23 11:00 03/26/23 11:01 Temperature 97.9 F Pulse Rate 80 80 79 Respiratory Rate 18 26 H 24 Blood Pressure 174/85 H Pulse Oximetry 99 92 93 Oxygen Delivery Method Room Air 03/26/23 11:01 03/26/23 11:25 03/26/23 11:25 Temperature Pulse Rate 76 Respiratory Rate 24 Blood Pressure 120/67 137/68 Pulse Oximetry 93 Oxygen Delivery Method 03/26/23 11:30 03/26/23 11:30 03/26/23 12:07 Temperature Pulse Rate 70 67 Respiratory Rate 24 Blood Pressure 125/60 Pulse Oximetry 93 98 Oxygen Delivery Method 03/26/23 12:08 03/26/23 12:08 03/26/23 12:30 Temperature Pulse Rate 67 65 Respiratory Rate 34 H 39 H Blood Pressure 146/66 H Pulse Oximetry 98 98 Oxygen Delivery Method 03/26/23 12:30 03/26/23 13:00 03/26/23 13:01 Temperature Pulse Rate 66 67 Respiratory Rate 33 H 45 H Blood Pressure 144/68 H Pulse Oximetry 96 97 Oxygen Delivery Method 03/26/23 13:01 Temperature Pulse Rate Respiratory Rate Blood Pressure 134/63 Pulse Oximetry Oxygen Delivery Method Medical Decision Making Lab Data Lab results reviewed: Yes I reviewed the patient's lab results. 03/26/23 10:52 03/26/23 10:52 Labs: Lab Results 03/26/23 03/26/23 Range/Units 10:52 11:28 WBC 13.1 H (4.5-11.0) X10^3/uL RBC 5.01 (4.0-5.2) X10^6/uL Hgb 14.6 (12.0-16.0) g/dL Hct 43.4 (36-46) % MCV 86.6 (80-100) fL MCH 29.1 (26-34) PG MCHC 33.6 (30-36) % RDW 13.5 (11.6-14.8) % Plt Count 325 (150-400) X10^3/uL Neut % (Auto) 73.6 (50-75) % Lymph % (Auto) 17.3 L (25-40) % [place] % (Auto) 8.2 (3-14) % Eos % (Auto) 0.6 L (2-4) % Baso % (Auto) 0.3 (0-2) % Neut # (Auto) 9600 H (2646-6866) /uL Lymph # (Auto) 2300 (9355-0591) /uL [place] # (Auto) 1100 H (0-900) /uL Eos # (Auto) 100 (0-450) /uL Baso # (Auto) 0 (0-100) /uL Sodium 133 L (137-145) mmol/L Potassium 4.0 (3.4-5.1) mmol/L Chloride 97 L (98-107) mmol/L Carbon Dioxide 25 (22-32) mmol/L BUN 11 (7-17) mg/dL Creatinine 0.72 (0.52-1.04) mg/dL Estimated GFR > 60 (>60) mL/min BUN/Creatinine Ratio 15.3 (6-22) Glucose 156 H (80-110) mg/dL Calcium 9.7 (8.4-10.2) mg/dL Total Bilirubin 1.2 (0.2-1.3) mg/dL AST 24 (14-36) IU/L ALT 20 (<35) IU/L Alkaline Phosphatase 83 (38-126) U/L Total Protein 8.2 (6.3-8.2) g/dL Albumin 4.6 (3.5-5.0) g/dL Globulin 3.6 (1.7-4.1) g/dL Albumin/Globulin Ratio 1.3 (1.0-2.8) Lipase 137 (23-300) U/L Urine RBC 5-10/hpf H (0-5/HPF) Urine WBC 5-10/hpf H (0-5/HPF) Ur Squamous Epith Cells 5-10 /hpf H (0-5/HPF) Urine Bacteria Occasional (0-1) (None) Urine Mucus 3+ H (Negative) Ur Culture Indicated? Cult not indicated Urine Dip Bedside Urine Glucose Negative Bedside Urine Bilirubin + 1 Bedside Urine Ketone +/- 5 Urine Specific [place] 1.025 Bedside Urine Occult Blood +++ Bedside Urine pH 5.5 Bedside Urine Protein ++ 100 Bedside Urine Urobilinogen - Negative Bedside Urine Nitrite - Negative Bedside Urine Leukocytes + 70 Esterase Point of care testing: Urine Dip Bedside Urine Glucose Negative Bedside Urine Bilirubin + 1 Bedside Urine Ketone +/- 5 Urine Specific [place] 1.025 Bedside Urine Occult Blood +++ Bedside Urine pH 5.5 Bedside Urine Protein ++ 100 Bedside Urine Urobilinogen - Negative Bedside Urine Nitrite - Negative Bedside Urine Leukocytes + [address] scan - abdomen/pelvis: Radiologist's Impression: PROCEDURE: CT ABDOMEN PELVIS W CON INDICATIONS: Periumbilical redness, eval for abscess/cellulitis/incarcera TECHNIQUE: After the administration of intravenous contrast, axial sections acquired from the lung bases to the pubic symphysis. Coronal and sagittal reformats were performed. For radiation dose reduction, the following was used: automated exposure control, adjustment of mA and/or kV according to patient size. COMPARISON: None. FINDINGS: Image quality: Diagnostic. Lower Chest: No significant findings. Pacer leads are seen. ABDOMEN: Liver: No solid mass. Diffuse fatty liver infiltration is noted. Gallbladder: No radiopaque gallstones or wall thickening. Biliary ducts: No biliary dilation. Pancreas: No ductal dilation. Spleen: Size is within normal limits. Adrenal Glands: No adrenal nodules. Kidneys and Ureters: No hydronephrosis. No solid mass. No complex renal cystic lesion which requires follow up. Stomach and Bowel: Colonic diverticulosis is seen, without findings of active diverticulitis. No additional significant colonic abnormality can be seen. No dilated loops of small bowel are seen. The stomach is decompressed at the time of this study, limiting its evaluation. Peritoneum: No abnormal intraperitoneal fluid. No free air. Ventral Wall: Just superior to the umbilicus, there is a 16 S collection of fluid and gas, with mild rim enhancement that measures 3.7 x 2.9 cm in greatest axial dimension, with a craniocaudal extent of 2.5 cm. There is moderate surrounding inflammatory change. No findings ventral hernia can be seen. Abdominal Nodes: No retroperitoneal or mesenteric adenopathy by size criteria. Vessels: Aorta and inferior vena cava are normal in size. Atherosclerotic calcification is noted. PELVIS: Pelvic Organs: The endometrial stripe appears thickened at 7 mm. No adnexal masses are seen. Bladder: Unremarkable. Pelvic Nodes: No enlarged lymph nodes. Miscellaneous: No inguinal hernias are seen. Bones: No aggressive osseous abnormality. Age-appropriate bony degenerative changes are seen. IMPRESSION: 3.7 cm subcutaneous abscess seen just superior to the umbilicus, with surrounding moderate inflammatory change. Negative for ventral hernia. The endometrial stripe appears thickened at 7 mm in this postmenopausal patient. If clinically appropriate, please consider a follow-up pelvic ultrasound for further evaluation. Additional findings: Pacer leads Fatty liver infiltration MDM Narrative Medical decision making narrative: Patient does have what felt like a hernia initially on the exam with some surrounding erythema. There was concern about an incarcerated hernia. She does have leukocytosis. CT scan showed abscess with surrounding induration. This does correspond to her exam however the patient states she did have a hernia in this area that was repaired in the past. I did discuss the case with Dr. Ibarra on-call for General surgery who looked at the CT scan as well who stated that she did not think that there was bowel and that this was an abscess. I discuss this with the patient. Under ultrasound guidance I did do a needle aspiration and return of approximately 10 cc what appears to be purulent material. No fecal material noted in this. The abscess was what smaller on ultrasound afterwards. Will discharge patient home on antibiotics. She was given specific return precautions. She expressed understanding and agreement. Discharge Plan Departure Patient Disposition: Home Clinical Impression: Abscess Instructions: DI for Cellulitis -- Adult, DI for Skin Abscess Activity Restrictions/Additional Instructions: I would expect some bruising around the area where we inserted the needle. We do need to start you on antibiotics and a prescription was sent to [facility]. If your symptoms are worsening despite the procedure we did today in the antibiotics please return to the emergency department for further evaluation Prescriptions: New doxycycline hyclate 100 mg tablet 100 mg PO BID 7 Days Qty: 14 0RF No Action omega 0-lnz-ytm-fish oil 910-1,400 mg Capsule 1 cap PO DAILY rosuvastatin 5 mg tablet 1 tab PO DAILY Patient Comments: take 1 tablet by mouth once daily albuterol sulfate 90 mcg/actuation HFA aerosol inhaler 2 inh INHALATION DAILY PRN (Reason: Shortness Of Breath) Patient Comments: inhale 2 puffs by mouth and INTO THE LUNGS every 4 to 6 hours if ... (REFER TO PRESCRIPTION NOTES). aspirin 81 mg Tablet,Chewable 81 mg PO DAILY Qty: 30 0RF Referrals: Sil Martínez MD [Primary Care Provider] - Stand Alone Forms: Patient Portal/API
[2023-03-26 11:11] LABS: Add Manual Diff / Slide Review NO; Basophils Absolute Auto 0 /uL (0-100); Basophils Percent Auto 0.3 % (0-2); Eosinophils Absolute Auto 100 /uL (0-450); Eosinophils Percent Auto 0.6 % (2-4); Hematocrit 43.4 % (36-46); Hemoglobin 14.6 g/dL (12.0-16.0); Lymphocytes Absolute Auto 2300 /uL (1100-4500); Lymphocytes Percent Auto 17.3 % (25-40); Mean Corpuscular HGB Conc 33.6 % (30-36); Mean Corpuscular Hemoglobin 29.1 PG (26-34); Mean Corpuscular Volume 86.6 fL (80-100); Monocytes Absolute Auto 1100 /uL (0-900); Monocytes Percent Auto 8.2 % (3-14); Neutrophils Absolute Auto 9600 /uL (1500-7000); Neutrophils Percent Auto 73.6 % (50-75); Platelet Count 325 X10^3/uL (150-400); Red Blood Cell Count 5.01 X10^6/uL (4.0-5.2); Red Cell Distribution Width 13.5 % (11.6-14.8); White Blood Cell Count 13.1 X10^3/uL (4.5-11.0)
[2023-03-26 11:17] LABS: Albumin 4.6 g/dL (3.5-5.0); Albumin Globulin Ratio 1.3 (1.0-2.8); Alkaline Phosphatase 83 U/L (38-126); Aspartate Aminotransferase 24 IU/L (14-36); BUN Creatinine Ratio 15.3 (6-22); Bilirubin Total 1.2 mg/dL (0.2-1.3); Blood Urea Nitrogen 11 mg/dL (7-17); Calcium 9.7 mg/dL (8.4-10.2); Carbon Dioxide 25 mmol/L (22-32); Estimated Glomerular Filt Rate > 60 mL/min (>60); Globulin 3.6 g/dL (1.7-4.1); Glucose 156 mg/dL (80-110); Total Protein 8.2 g/dL (6.3-8.2)
[2023-03-26 11:46] LABS: Alanine Aminotransferase 20 IU/L (<35); Chloride 97 mmol/L (98-107); HEMOLYSIS 25 (0-50); Lipase 137 U/L (23-300); Sodium 133 mmol/L (137-145)
[2023-03-26 12:19] LABS: Bacteria Urine Occasional (0-1); RBC Urine 5-10/HPF (0-5/HPF); WBC Urine 5-10/HPF (0-5/HPF)
[2023-03-26 12:20] LABS: Culture Indicated Urine Cult Not Indicated; Mucus Urine 3+ (Negative); Squamous Epithelial Cell Urine 5-10 /HPF (0-5/HPF)
== END 2023-03-26 13:29 | disposition home or self-care (01) ==
PROVIDERS: Emergency Provider Emergency Medicine; PCP Internal Medicine
DX: L02.211 Cutaneous abscess of abdominal wall (principal)
CPT/HCPCS: 10060; 36415; 74177; 80053; 81003; 81015; 83690; 85025; 99283; 99284; Q9967

== ENCOUNTER → 2023-03-31 09:52 | Outpatient (CLI) | payer MEDICARE, SELFPAY ==
[2021-09-08 17:21] VITALS: BMI 29.0
--- NOTE | 2023-03-31 09:54 | DI.US.S_ITS ---
PROCEDURE: US ABDOMEN LIMITED INDICATIONS: f/u abdominal wall abscess TECHNIQUE: Real-time scanning was performed of the abdominal and retroperitoneal organs, with image documentation. COMPARISON: None. FINDINGS: There is a heterogeneous ill-defined region of echogenicity within the previous abscess site measuring 26 mm x 12 mm x 13 mm, consistent with focal cellulitis versus phlegmon. IMPRESSION: Cellulitis versus phlegmon as described above. Dictated by: Jenna Cifuentes M.D. on 03/31/2023 at 12:10 Approved by: Jenna Cifuentes M.D. on 03/31/2023 at 12:11
== END ==
PROVIDERS: PCP Internal Medicine; Referring Provider Surgery; Visit Provider Surgery
DX: L02.211 Cutaneous abscess of abdominal wall (principal)
CPT/HCPCS: 76705; 99214

== ENCOUNTER 2023-04-08 16:15 | Inpatient (IN) | payer MEDICARE, SELFPAY ==
[2021-09-08 17:21] VITALS: BMI 29.0
[2023-04-05 09:02] VITALS: BMI 28.8
[2023-04-08] VITALS (17 sets, daily range): BP systolic 110–163; BP diastolic 63–78; PULSE 60–83; RESP 12–22; TEMP 36.1–37; O2SAT 90–98; BMI 28.8
--- NOTE | 2023-04-08 | PATH_ITS ---
[facility] Accession Number: [id number] No. of containers..02 Tissue . 01 Material submitted: . PART A: abdomen - ABDOMINAL WALL MESH PART B: small bowel - SMALL BOWL AND MESH . 01 Diagnosis: A. Abdominal wall mesh, excision. - Benign fibrovascular tissue with foreign body giant cell reaction. - Negative for malignancy. -- B. Small bowel, and mesh, resection. 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 - Benign two lymph nodes. - Margins are viable. - Negative for malignancy. TXN 04/11/2023 1551 Local . 01 Electronically signed: . Tawfeq MD Avni, Pathologist NPI- [id number] . 01 Gross description: . A. Received in formalin, labeled with the patient's name, , and abdominal wall mesh, and consists of a valdez to brown fragment of mesh with and a small amount of attached soft tissue, all measuring 3.5 x 2.4 x 1.0 cm. The soft tissue is valdez and unremarkable with no lesions identified. Granite Cutter sections of tissue are submitted in cassette A1. B. Received in formalin, labeled with the patient's name, , and small bowel with mesh, and consists of an unoriented portion of bowel measuring 13.0 cm in length by 1.1 cm in average diameter with mesentery extending out to 3.5 cm. A pedunculated mass of soft tissue and mesh is attached measuring 7.2 x 5.5 x 5.4 cm. The serosa is valdez, smooth, and otherwise unremarkable. One staple line is inked blue, the opposite staple line is inked black, and the mesenteric margin is inked green. The lumen contains and a small amount of green mucoid material. The mucosa has a defect at the location of the pedunculated mass that is patent with mucosa extending through the attachment and ending within the soft tissue and mesh consistent with a patent bowel fistula. The remaining mucosa is green and velvety with normal appearing folds and no lesions identified. Sectioning through the soft tissue and mesh reveals hemorrhagic to fibrous soft tissue with no distinct lesions grossly identified. The wyman of the bowel average 0.3 cm thick with no diverticula identified. . Palpation of the adipose tissue reveals three valdez lymph node candidates ranging from 0.3 cm to 0.5 cm in greatest dimension. . Granite Cutter sections are submitted as follows: B1: Granite Cutter margins en face. B2: Composite longitudinal section of fistula with the bowel end inked orange and the mesh end inked green. B3: Additional full-thickness bowel. B4: Soft tissue adjacent to mesh. B5: Three intact lymph node candidates. . Photographs taken. ([id number]) /FRR 04/09/2023 [facility] Local . 01 Pathologist provided ICD-10: L02.91 . 01 CPT . 639102, [id number] Specimen Comment: A courtesy copy of this report has been sent to [phone] Performed at: 01 [facility] [address] [place] [address] [id number] MD Jayme Velazquez MD Phone: [phone]
[2023-04-08] MEDS: LACTATED RINGERS 1,000 ML 21 ML IV ×2 (13:26→16:35)
--- NOTE | 2023-04-08 15:00 | PM.PREOP ---
Pre-operative Note Interval Note History & Physical reviewed/Exam performed by Physician: Yes Changes to H&P: No
--- NOTE | 2023-04-08 15:18 | SUR.OPER ---
Supine on padded OR bed, head on pillow, arms secured on padded arm boards at <90 degrees abduction, legs uncrossed, safety belt at thigh, tape over blanket over lower legs.
[2023-04-08] MEDS: BUPIVACAINE 0.25% (PF) VIAL 30 ML INJ (15:23)
[2023-04-08] MEDS: PIPERACILLIN/TAZO 3.375 GM in SODIUM CHLORIDE 0.9% 100 ML IV (16:20)
[2023-04-08] MEDS: ACETAMINOPHEN IV 1,000 MG/100 ML VIAL 400 MG IV (16:55)
--- NOTE | 2023-04-08 16:57 | P.OP_ITS ---
Operative Date/Time/Diagnoses Date of procedure: 04/08/23 Time of procedure: 16:57 Pre-op diagnosis: Abdominal wall abscess Post-op diagnosis: other (Enterocutaneous fistula) Procedure & Clinicians Procedure: Exploratory laparotomy Enterectomy Explantation of mesh Same procedure as scheduled: Yes Indications: 82-year-old woman who underwent a open umbilical hernia repair with mesh many years ago. She presents with a abdominal wall abscess. She is taken to operating room for incision and drainage of abscess. Intraoperatively found a pocket purulence within the abdominal wall in direct communication with the mesh. During the explantation of the mesh it became clear that she had a small- bowel fistula to the mesh. At that point I spoke with the patient's explained the findings and obtained his permission to proceed with an exploratory laparotomy and small-bowel resection. Surgeon: Jose Lewis Click Yes if Unassisted: Yes Anesthesia Type: General Operative Notes Findings: Fistula between the mid small bowel and the mesh Specimen(s): other (Small bowel with attached mesh, mesh, abdominal wall abscess.) Estimated Blood Loss (mL): 50 Procedure in detail: Patient was brought to the operating room placed supine on the table. Bilateral lower extremity compression devices were applied. General anesthesia was induced he was intubated with an LMA. She was then prepped and draped in sterile fashion. Time-out was performed. We began with a incision supraumbilical over the area of fluctuance. Deep to the subcutaneous tissue we encountered a small pocket of purulent fluid culture was obtained. As we explored the cavity it became evident that it was in direct connection with the umbilical mesh. We began to explant mesh and observed a fistula between the small bowel and the mesh. At this point I scrubbed out of the operation and discussed the findings with patient's and explained my recommendations that we proceed with an exploratory laparotomy and small-bowel resection. He provided consent to proceed. We extended our incision creating a mini laparot raysa. Small bowel was eviscerated. A 20 cm segment of small bowel was resected that was connection with the mesh. Window within the mesentery on each side of the segment was made and then the bowel was divided with a linear JAEL stapler 75 mm blue load. The small bowel with the associated mesh was resected using the LigaSure and passed off the field as specimen. We then created a [id number] f unctional end and anastomosis. A crotch stitch of silk was placed and then we made an enterotomy in each limb and a 3rd staple load was used to create a common channel. The common channel was inspected it was widely patent and hemostatic. We then closed the opening with a running PDS suture and then this was then imbricated with interrupted silk suture. The anastomosis was well perfused and there was no evidence of leak the mesenteric defect was then closed with interrupted silk suture. The bowel was then returned to the abdomen and the abdomen was copiously lavaged with sterile saline which returned clear. We then closed the fascia with a 1. PDS suture subcutaneous layer was closed with interrupted Vicryl suture and the skin with radha. She tolerated the operation well was transferred to recovery in stable condition. Complications: none Post-operative Condition: stable Disposition: Acute Care
[2023-04-08] MEDS: OXYCODONE IR 5 MG TABLET PO (17:19)
[2023-04-08] MEDS: ONDANSETRON 4 MG/2 ML INJ IV (17:20)
[2023-04-08] MEDS: HYDROMORPHONE 0.5 MG INJ IV (18:46)
[2023-04-08] MEDS: DEXTROSE 5%-0.45% NS 1,000 ML 75 ML IV (18:47)
[2023-04-09] VITALS (12 sets, daily range): BP systolic 90–131; BP diastolic 51–96; PULSE 61–66; RESP 16–19; TEMP 36.5–37; O2SAT 93–97
[2023-04-09] MEDS: CALCIUM CARBONATE 500 MG TAB 1000 MG PO (05:10)
[2023-04-09] MEDS: ACETAMINOPHEN 325 MG TABLET 650 MG PO ×3 (05:10→21:16)
[2023-04-09] MEDS: OXYCODONE IR 5 MG TABLET PO ×2 (05:10→08:53)
[2023-04-09 06:29] LABS: Add Manual Diff / Slide Review NO; Basophils Absolute Auto 0 /uL (0-100); Basophils Percent Auto 0.1 % (0-2); Eosinophils Absolute Auto 0 /uL (0-450); Hemoglobin 13.5 g/dL (12.0-16.0); Lymphocytes Absolute Auto 1200 /uL (1100-4500); Lymphocytes Percent Auto 7.8 % (25-40); Mean Corpuscular HGB Conc 33.1 % (30-36); Mean Corpuscular Hemoglobin 28.7 PG (26-34); Mean Corpuscular Volume 86.9 fL (80-100); Monocytes Absolute Auto 700 /uL (0-900); Monocytes Percent Auto 4.8 % (3-14); Neutrophils Absolute Auto 13200 /uL (1500-7000); Neutrophils Percent Auto 87.3 % (50-75); Platelet Count 348 X10^3/uL (150-400); Red Blood Cell Count 4.71 X10^6/uL (4.0-5.2); Red Cell Distribution Width 13.2 % (11.6-14.8); White Blood Cell Count 15.1 X10^3/uL (4.5-11.0)
[2023-04-09 06:41] LABS: BUN Creatinine Ratio 18.6 (6-22); Blood Urea Nitrogen 11 mg/dL (7-17); Calcium 9.5 mg/dL (8.4-10.2); Carbon Dioxide 28 mmol/L (22-32); Chloride 99 mmol/L (98-107); Estimated Glomerular Filt Rate > 60 mL/min (>60); Glucose 180 mg/dL (80-110); HEMOLYSIS < 15 (0-50); Potassium 5.1 mmol/L (3.4-5.1); Sodium 135 mmol/L (137-145)
[2023-04-09] MEDS: ONDANSETRON 4 MG/2 ML INJ IV (07:56)
[2023-04-09] MEDS: ENOXAPARIN 40 MG/0.4 ML SYRINGE SUBCUT (08:52)
[2023-04-09] MEDS: DOCUSATE 100 MG CAPSULE PO ×2 (08:53→21:16)
[2023-04-09] MEDS: DEXTROSE 5%-0.45% NS 1,000 ML 75 ML IV ×2 (08:55→22:11)
--- NOTE | 2023-04-09 10:03 | PM.OP.1 ---
Operative Date/Time/Diagnoses Date of procedure: 04/09/23 Time of procedure: 10:03 Pre-op diagnosis: Right buttock abscess Post-op diagnosis: same Procedure & Clinicians Procedure: Incision and drainage of right buttock abscess Same procedure as scheduled: Yes Indications: abscess Surgeon: Lucia Ibarra Click Yes if Unassisted: Yes Anesthesia Type: General and Local Operative Notes Findings: Right buttock abscess, cavity proximally size of a golf ball Closure Type: not applicable Specimen(s): none sent Estimated Blood Loss (mL): 5 Blood products transfused: none Procedure in detail: Preop diagnosis: Right buttock abscess, thrombocytopenia Postop diagnosis: Same Operative procedure: Incision and drainage of right buttock abscess, single dose TXA Surgeon: Brit Ibarra MD Findings: Right buttock abscess golf ball size Procedure: Patient placed in a lateral position. Fifteen blade was used to incise over the area of compromised skin. Then hemostats used to break down septations followed by digital exam. Bleeding was well controlled having given the TXA. Platelets of note prior to procedure were 39. Gauze was used to pack the abscess cavity to provide hemostasis as well. Gauze was soaked in 0.25% Marcaine with epinephrine prior to packing. Dry dressings were placed. Patient was awakened, extubated, taken to recovery room in stable condition. Needle, instrument, sponge counts were correct. Specimen: None Blood loss: 5 mL Complications: none Post-operative Condition: stable Disposition: PACU
--- NOTE | 2023-04-09 11:00 | PT.IIE ---
Current Diagnoses Cutaneous abscess, unspecified (04/08/23) Surgery Performed Operation Date: 04/08/23 14:30 Actual Procedures p INCISION AND DRAINAGE OF ABDOMINAL ABSCESS, EXPORATORY LAPAROTOMY, SMALL BOWEL RESECTION WITH REMOVAL OF MESH(Not Applicable) - Jose Lewis MD Surgical History (Last Reviewed 04/05/23 @ 13:57 by Jose Lewis MD) Cataract extraction status of left eye H/O bilateral cataract extraction History of hernia repair (01/03/18) Previous section Medical History (Last Reviewed 04/05/23 @ 13:57 by Jose Lewis MD) Acid reflux Afib Asthma Atherosclerotic vascular disease Hernia History of Holter monitoring History of pneumonia Hyperlipidemia Mitral valve regurgitation 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) Palpitations Pedal edema Polymyalgia rheumatica Sinus bradycardia Sleep apnea SVT (supraventricular tachycardia) Uncomplicated asthma Ventral hernia Physical Therapy Inpatient Evaluation/Re-Eval M1 PT/OT-IP Prior Functional Status Start: 04/09/23 12:52 Freq: NEEDED Status: Active Protocol: Document 04/09/23 11:00 AB (Rec: 04/09/23 13:09 [id number]) Medical Review Prior Functional Status Medical History Reviewed Yes Communication able to make needs known Mobility and Gait pt stated that she was independent with all mobilities and ambulation without AD Social History Household Members significant other Living Arrangements House Number of Floors (Floors) 3 or More Floors Number of Stairs To Enter/Railing? 3 steps R rail ascending to enter the house: main living area and pt will be able to stay in there if needed bedroom is usually on the 2nd level of the house with 10 steps B rails ascending Home Environment Standard Height Toilet,Tub/ Shower Home Equipment Grab Bars In Shower Additional Social History Comment stated that her significant other Isaac may be able to assist her some at home but not a lot and usually, she is the one who assists him M2 PT-IP Current Condition Start: 04/09/23 12:52 Freq: NEEDED Status: Active Protocol: Document 04/09/23 11:00 AB (Rec: 04/09/23 13:09 [id number]) Physical Therapy Current Condition Current Condition Evaluation Date 04/09/23 Treatment Diagnosis s/p ex-lap and enterectomy; difficulty in walking Onset Date 04/08/23 M3 PT-IP Subjective Start: 04/09/23 12:52 Freq: NEEDED Status: Active Protocol: Document 04/09/23 11:00 AB (Rec: 04/09/23 13:09 [id number]) Subjective Physical Therapy Visit Type Type Initial Evaluation Visit Start Time 11:00 Visit Stop Time 11:18 Total Visit Minutes 18 Number of SENIOR CAREGIVER Visits 0 Physical Therapy Visit Comments Patient Comments agreeable to do PT Therapy Pain Assessment Pain When Pain Assessed At Rest Pain Present Pain Present Pain Reported Location Abdomen Intensity 5 Scale Used Numeric (0 - 10) Pain Management Techniques Distraction,Modification of Treatment,Re-positioning, Timing of Activity with Medications M4 PT-IP Mobility and Gait Start: 04/09/23 12:52 Freq: NEEDED Status: Active Protocol: Document 04/09/23 11:00 AB (Rec: 04/09/23 13:09 [id number]) PT-Bed Mobility Assessment Rolling Type of Rolling Log Rolling Level of Assist Moderate Assistance Sit to Supine Sit to Supine Maximum Assistance,Bedrails PT-Transfer Assessment Sit to and From Stand Sit to and from Stand Contact Guard Assistance,1 Person Assistance,Use of Upper Extremities Equipment Transfer Assistive Device Gait Belt,Front Wheeled Walker Orthotic/Prosthetic Devices or Brace: No Transfers Transfer Destination Bed Transfer Technique Stand Step Pivot Transfer Ability Level of Assist Contact Guard Assistance, Minimal Assistance,1 Person Assistance,Use of Upper Extremities Comments Mobility Comments pt found walking in the hallway with student nurse. PT took over care and directed pt to walk back to her room and completed using FWW ~ 50 ft CGA. pt sat on the chair. obtained PLOF and home set up with pt. pt is dozing off in between questions and with difficutly focusing. BP checked: 95/54 O2 sat checked: 86%. nurse came in. O2 provided to pt with 2 1/2 L/ min. O2 sat increased to 92%. nurse wants pt back to the bed. completed sit to stand CGA to min A and step transfer using FWW to bed . educated pt regarding abdominal precautions and log roll bed mobility. pt completed sit to supine log roll max A and max cues. positioned pt in bed. call light and table placed within reach. BP checked again: 89/59 in supine after transfer. O2 sat: 96 % with o2 on. Nurse took over pt's care. provided pt with postop handout. Gait Assessment Gait Gait Assistance Required: Contact Guard Assist Distance (Feet) 50 Able to Maintain Weight Bearing Status Yes During Gait Assistive Devices Assistive Device Gait Belt,Front Wheeled Walker Orthotic/Prosthetic Devices or Brace: No Gait Deviations General Gait Pattern Decreased Stride Length, Decreased Feet Clearance Factors Limiting Gait Function Factors Limiting Gait Function Decreased Activity Tolerance, Decreased Strength,Difficulty Following Directions,Pain,Poor Balance,Poor Safety Awareness ,Respiratory Distress PT-Balance Assessment Sitting Balance and Reactions Static Sitting Balance Ability Good Dynamic Sitting Balance Ability Good Standing Balance and Reactions Static Standing Balance Ability Fair Dynamic Standing Balance Ability Fair Device Used FWW M5 PT-IP Objective Assessments Start: 04/09/23 12:52 Freq: NEEDED Status: Active Protocol: Document 04/09/23 11:00 AB (Rec: 04/09/23 13:09 AB [id number]) Orientation Orientation/Cognition Level of Alertness Alert Orientation Name,Situation Language Function Ability No Deficits Noted Safety Awareness Decreased Safety Awareness Memory Description No Deficits Noted Gross Range of Motion Lower Extremity ROM Assessment Within Functional Limits Strength Lower Extremity Strength Assessment Within Functional Limits Muscle Tone Muscle Tone WNL Yes M6 PT-IP Treatment Start: 04/09/23 12:52 Freq: NEEDED Status: Active Protocol: Document 04/09/23 11:00 AB (Rec: 04/09/23 13:09 AB [id number]) Physical Therapy Treatment Education Education Provided Precautions,Post-Op Packet, Safety M7 PT-IP Assessment and Plan Start: 04/09/23 12:52 Freq: NEEDED Status: Active Protocol: Document 04/09/23 11:00 AB (Rec: 04/09/23 13:09 AB [id number]) PT Summary Assessment and Plan Potential Rehabilitation Potential Fair Status of Condition at Evaluation Evolving Summary Impairments Pain,ROM,Strength,Balance, Coordination,Sensation,Tone, Cognition,Bed Mobility, Transfers,Gait,Activity Tolerance Assessment Summary Pt is an 82 y/o F who underwent ex-lap and enterectomy due to abdominal wall abscess POD 1. pt with abdominal precautions and requiring max A for log roll bed mobility, CGA to min A with transfers and ambulation using FWW. pt with decrease activity tolerance affecting mobility independence of which pt presents with low BP 89/59 and decrease o2 sat of 86% at RA needing O2 at 2 1/2 L/min. d/c plan depending on progress but pt will need assistance if and when she goes home. Pt lives with her significant other but pt stated that SO is limited with the assistance he will be able to provide pt due to his own medical issues. at this time, pt may benefit from SNF rehab. will continue to assess . Goals Bed Mobility Goal Independent Transfer Goal Independent,Front Wheeled Walker Gait Goal Independent,Front Wheel Walker Gait Distance 200 Other Goals improve transfers and ambulation using LRAD/without AD 300 ft mod I up/down 3 steps R rail mod I Days to Meet Goals 10 Frequency of Treatment Frequency Of Treatment Once a Day Treatment Plan Physical Therapy Treatment Plan Bed Mobility Training,Transfer Training,Gait Training, Therapeutic Exercise,Balance Retraining,Post Op Education, Discharge Planning,Hot or Cold Pack,Neuromuscular Re-ed, Coordination Retraining,Manual Therapy Precautions Abdominal Surgery Precautions Log Roll,Lifting Restrictions, Gait Belt above Incisional Area Recommendations To Nursing Amount of Assist Needed 1 Person Assist Discharge Recommendations PT Discharge Recommendations Home with 11/10 Assist Available,Home Health,SNF Rehab,Home vs SNF Equipment Needed for Home Before FWW if pt goes home an not Discharge safe without AD Transportation Needs at Discharge Private Vehicle,Wheelchair/ Cabulance
--- NOTE | 2023-04-09 11:04 | PM.PNPO.1 ---
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 Had emesis this morning and urinary retention requiring I and O cath (500ml). Exam Vital Signs (past 8 hours): - 04/09/23 06:00 04/09/23 06:00 04/09/23 07:00 Temperature 98.6 F Pulse Rate 66 Respiratory Rate 17 Blood Pressure 128/66 Pulse Oximetry 93 94 95 Oxygen Delivery Method Room Air Nasal Cannula Oxygen Flow Rate 3 3 04/09/23 08:22 04/09/23 08:59 04/09/23 10:00 Temperature 97.8 F Pulse Rate 63 Respiratory Rate 18 Blood Pressure 90/51 L Pulse Oximetry 94 94 Oxygen Delivery Method Nasal Cannula Nasal Cannula Oxygen Flow Rate 3 3 Oxygen Delivery Method Nasal Cannula Oxygen Flow Rate 3 Narrative Exam Narrative: abdomen is soft, dressing dry and intact. Objective Labs 04/09/23 05:30 04/09/23 05:30 Labs: Laboratory Results - last 24 hr 04/09/23 05:30 WBC 15.1 H RBC 4.71 Hgb 13.5 Hct 41.0 MCV 86.9 MCH 28.7 MCHC 33.1 RDW 13.2 Plt Count 348 Neut % (Auto) 87.3 H Lymph % (Auto) 7.8 L [place] % (Auto) 4.8 Eos % (Auto) 0.0 L Baso % (Auto) 0.1 Neut # (Auto) 28909 H Lymph # (Auto) 1200 [place] # (Auto) 700 Eos # (Auto) 0 Baso # (Auto) 0 Sodium 135 L Potassium 5.1 Chloride 99 Carbon Dioxide 28 BUN 11 Creatinine 0.59 Estimated GFR > 60 BUN/Creatinine Ratio 18.6 Glucose 180 H Calcium 9.5 PFSH Medical History 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) Afib Uncomplicated asthma Atherosclerotic vascular disease Hernia Pedal edema Acid reflux History of Holter monitoring SVT (supraventricular tachycardia) Sleep apnea Sinus bradycardia Asthma Hyperlipidemia Palpitations Mitral valve regurgitation History of pneumonia Ventral hernia Polymyalgia rheumatica Surgical History History of hernia repair (01/03/18) H/O bilateral cataract extraction Cataract extraction status of left eye Previous section Family History Father Cancer Father Leukemia Mother Dementia Social History marital status: unknown household members: significant other lives independently: Yes occupational status: previously employed Smoking Status: Never smoker alcohol intake: current substance use type: does not use Assessment & Plan Post-op Postoperative Procedures: Procedures Operation Date: 04/08/23 14:30 Actual Procedure Side Surgeon p INCISION AND DRAINAGE OF ABDOMINAL ABSCESS, EXPORATORY LAPAROTOMY, SMALL BOWEL RESECTION WITH REMOVAL OF MESH Not Applicable Jose Lewis MD Postoperative day: 1 Postoperative status: post-op ileus and urinary retention Postoperative plan: routine post-op care Postoperative plan narrative: hold at the clear liquid diet and continue IVF Time Spent With Patient Time with patient: 15-24 minutes
--- NOTE | 2023-04-09 14:11 | CM.DANOTE ---
Patient is an 82 yo female who was admitted on 04/08/23 for Ex Lap. Pt has [facility] and [employer] for insurance and her PCP is Dr. Sil Martínez. EMR was reviewed. Per Surgeon, pt went in for exploratory lap for abdominal abscess from prior hernia repair with mesh and determined pt needed bowel resection. SW met bedside with pt and Sig Constantine Gray and explained role and they confirm that they live in [place] at home and are both very active and independent and pt does not use DME for ambulation at baseline and still drives. Pt denies any hx of HH or SNF and confirms that Sig Other can assist at d/c. Pt still on oxygen currently and does not use O2 at home and had n/v this morning and has not voided (had to be straight cath'd) or had bm and only tolerating liquids at this time and not yet medically stable to discharge. Pt is hopeful to make quick improvements and fast healing as she states she has a trip planned to [place] in two weeks as she has not been back to her home town for 6 years but is aware she may need to postpone her trip to [place] pending her recovery process. Sig Other can provide transport home when medically stable and they do not currently anticipate any needs. Plan: SW to follow closely for pt's diet to be advanced and to void independently to confirm safe d/c home with Sig Other. SHANE York Discharge Planning/Care Management CM Discharge Assessment Start: 04/09/23 14:09 Freq: Status: Active Protocol: Document 04/09/23 14:10 BF (Rec: 04/09/23 14:11 BF [id number]) Discharge Planning Assessment Assigned Engineering Technical Specialist SHANE Mercado DPOA/Assigned Designee Name Efrain Simmons Contact Information [phone] Advance Directives? No Advance Directives on File No History Provided By Patient,Significant Other, Medical Record Has Patient been admitted in last 30 No days? Prior Living Arrangements House Household Members significant other Type of transporation used prior to Drives own vehicle admit Independent with ADL's Yes Is patient alert and oriented? Yes Caregiver for Another No Comment Patient uses no DME at baseline. Barriers to Discharge No Discharge Plan Home Transportation Arrangement Family to provide transport. Referrals Initiated None needed Whiteboard Updated in Patient Room with Yes name and ext. # of Engineering Technical Specialist Review Status In Process Please Provide Date Initial DC 04/09/23 Assessment Was Performed Next Review Type Continued Stay Review Pre-Anesthesia Assessment Start: 04/05/23 09:02 Freq: Status: Active Protocol: Document 04/05/23 09:02 BRIANNA (Rec: 04/05/23 09:15 [facility] [id number]) Pre-Anesthesia Assessment Patient Information Reviewed Via Chart Review Primary Care Provider Sil Martínez Seen Specialist in Last 12 Months Yes Specialist Seen Sql Report Writer,Emergency,General surgeon Primary Language B[place]an Preferred Language B[place]an Head Of Stock Required No Height 167.64 cm Weight 81.193 kg Body Mass Index (BMI) 28.8 Hx Anesthesia Reactions No Hx Family Anesthesia Reaction No Hx Malignant Hyperthermia No alcohol intake current alcohol intake frequency 0-2 drinks per day Smoking Status Never smoker Substance Use Type does not use Hx Sleep Apnea Yes Sleep apnea treatment Treatment unknown Currently Taking a Beta Dorian No Hx Syncope or Dizziness Yes Anti-Coagulant Therapy Yes: Xarelto-unknown what instructions given to patient Has a Sql Report Writer Yes: Last visit 03/16/[address] Conner @ [facility] Cardiac Testing No Hx Pacemaker/ICD Yes: Form scanned and placed in surgery folder for dos review Pacemaker Rep Required? No Comment Cardiac records scanned and in surgery folder for dos review Gastrointestinal Symptoms Abdominal Pain Urinary Catheter Present No Hx Urinary Self Catheterization No Diabetes No Patient No Lactating No Presence of External or Internal Medical Yes: Pacemaker Devices Received a COVID vaccine? Yes Marital Status Lives With significant other Patient Discharge Plan Description Return Home Do You Have Any Spiritual Beliefs That No May Affect Your HC Choices? Do You Have Any Cultural Practices That No May Affect Your HC Choices? Emergency Contact Name Isaac Simmons Emergency Contact Advance Directives? No
[2023-04-09] MEDS: TRAMADOL 50 MG TABLET PO ×2 (15:10→21:16)
[2023-04-10] VITALS (11 sets, daily range): BP systolic 113–164; BP diastolic 59–72; PULSE 62–65; RESP 16–24; TEMP 36.2–36.8; O2SAT 87–96
[2023-04-10 04:24] LABS: Add Manual Diff / Slide Review NO; Basophils Absolute Auto 0 /uL (0-100); Basophils Percent Auto 0.3 % (0-2); Eosinophils Absolute Auto 100 /uL (0-450); Eosinophils Percent Auto 1.2 % (2-4); Hematocrit 35.7 % (36-46); Hemoglobin 12.1 g/dL (12.0-16.0); Lymphocytes Absolute Auto 2000 /uL (1100-4500); Lymphocytes Percent Auto 18.7 % (25-40); Mean Corpuscular HGB Conc 33.9 % (30-36); Mean Corpuscular Hemoglobin 28.9 PG (26-34); Mean Corpuscular Volume 85.4 fL (80-100); Monocytes Absolute Auto 800 /uL (0-900); Monocytes Percent Auto 6.9 % (3-14); Neutrophils Absolute Auto 7900 /uL (1500-7000); Neutrophils Percent Auto 72.9 % (50-75); Platelet Count 317 X10^3/uL (150-400); Red Blood Cell Count 4.18 X10^6/uL (4.0-5.2); Red Cell Distribution Width 13.1 % (11.6-14.8); White Blood Cell Count 10.9 X10^3/uL (4.5-11.0)
[2023-04-10 04:29] LABS: BUN Creatinine Ratio 15.4 (6-22); Blood Urea Nitrogen 8 mg/dL (7-17); Calcium 8.9 mg/dL (8.4-10.2); Carbon Dioxide 30 mmol/L (22-32); Chloride 100 mmol/L (98-107); Estimated Glomerular Filt Rate > 60 mL/min (>60); Glucose 116 mg/dL (80-110); HEMOLYSIS < 15 (0-50); Potassium 3.5 mmol/L (3.4-5.1); Sodium 135 mmol/L (137-145)
[2023-04-10] MEDS: DOCUSATE 100 MG CAPSULE PO ×2 (08:52→21:02)
[2023-04-10] MEDS: ENOXAPARIN 40 MG/0.4 ML SYRINGE SUBCUT (08:52)
--- NOTE | 2023-04-10 09:00 | P.PN_ITS ---
Subjective Subjective Date Patient Seen: 04/10/23 Time Patient Seen: 09:00 Interval history: Good urine output, no BM, no nausea or burping. Pain with movement Exam Vital Signs (past 8 hours): - 04/10/23 02:00 04/10/23 03:58 04/10/23 06:00 Temperature 97.6 F Pulse Rate 62 Respiratory Rate 16 Blood Pressure 113/59 L Pulse Oximetry 96 92 93 Oxygen Delivery Method Room Air Room Air Oxygen Flow Rate 04/10/23 07:00 Temperature 97.1 F L Pulse Rate 65 Respiratory Rate 24 Blood Pressure 123/62 Pulse Oximetry 87 L Oxygen Delivery Method Oxygen Flow Rate 0 Oxygen Delivery Method Room Air Oxygen Flow Rate 0 Narrative Exam Narrative: Appears more comfortable. Abdomen soft with dressing dry and intact. Objective Labs 04/10/23 03:55 04/10/23 03:55 Labs: Laboratory Results - last 24 hr 04/10/23 03:55 WBC 10.9 RBC 4.18 Hgb 12.1 Hct 35.7 L MCV 85.4 MCH 28.9 MCHC 33.9 RDW 13.1 Plt Count 317 Neut % (Auto) 72.9 Lymph % (Auto) 18.7 L [place] % (Auto) 6.9 Eos % (Auto) 1.2 L Baso % (Auto) 0.3 Neut # (Auto) 7900 H Lymph # (Auto) 2000 [place] # (Auto) 800 Eos # (Auto) 100 Baso # (Auto) 0 Sodium 135 L Potassium 3.5 D Chloride 100 Carbon Dioxide 30 BUN 8 Creatinine 0.52 Estimated GFR > 60 BUN/Creatinine Ratio 15.4 Glucose 116 H Calcium 8.9 PFSH Medical History 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) Afib Uncomplicated asthma Atherosclerotic vascular disease Hernia Pedal edema Acid reflux History of Holter monitoring SVT (supraventricular tachycardia) Sleep apnea Sinus bradycardia Asthma Hyperlipidemia Palpitations Mitral valve regurgitation History of pneumonia Ventral hernia Polymyalgia rheumatica Surgical History History of hernia repair (01/03/18) H/O bilateral cataract extraction Cataract extraction status of left eye Previous section Family History Father Cancer Father Leukemia Mother Dementia Social History marital status: unknown household members: significant other lives independently: Yes occupational status: previously employed Smoking Status: Never smoker alcohol intake: current substance use type: does not use Assessment & Plan Post-op Postoperative Procedures: Procedures Operation Date: 04/08/23 14:30 Actual Procedure Side Surgeon p INCISION AND DRAINAGE OF ABDOMINAL ABSCESS, EXPORATORY LAPAROTOMY, SMALL BOWEL RESECTION WITH REMOVAL OF MESH Not Applicable Jose Lewis MD Postoperative day: 2 Postoperative status: doing well Postoperative status narrative: Leukocytosis resolved. Postoperative plan narrative: D/C IVF, advance diet. trial of [place] for pain Time Spent With Patient Time with patient: 15-24 minutes
--- NOTE | 2023-04-10 10:12 | PT.IPTN ---
Current Diagnoses Cutaneous abscess, unspecified (04/08/23) Surgery Performed Operation Date: 04/08/23 14:30 Actual Procedures p INCISION AND DRAINAGE OF ABDOMINAL ABSCESS, EXPORATORY LAPAROTOMY, SMALL BOWEL RESECTION WITH REMOVAL OF MESH(Not Applicable) - Jose Lewis MD Physical Therapy Treatment Note M2 PT-IP Current Condition Start: 04/09/23 12:52 Freq: NEEDED Status: Active Protocol: Document 04/09/23 11:00 AB (Rec: 04/09/23 13:09 AB [id number]) Physical Therapy Current Condition Current Condition Evaluation Date 04/09/23 Treatment Diagnosis s/p ex-lap and enterectomy; difficulty in walking Onset Date 04/08/23 M3 PT-IP Subjective Start: 04/09/23 12:52 Freq: NEEDED Status: Active Protocol: Document 04/10/23 09:10 MB (Rec: 04/10/23 10:12 MB [id number]) Subjective Physical Therapy Visit Type Type Treatment Note Visit Start Time 09:10 Visit Stop Time 09:40 Total Visit Minutes 30 Number of NASCAR RACER Visits 0 Physical Therapy Visit Comments Patient Comments Pt is feeling better and agreeable to PT for gait. M4 PT-IP Mobility and Gait Start: 04/09/23 12:52 Freq: NEEDED Status: Active Protocol: Document 04/10/23 09:10 MB (Rec: 04/10/23 10:12 MB [id number]) PT-Transfer Assessment Sit to and From Stand Sit to and from Stand Contact Guard Assistance,1 Person Assistance,Use of Upper Extremities Equipment Transfer Assistive Device Gait Belt,Front Wheeled Walker Orthotic/Prosthetic Devices or Brace: No Transfer Ability Level of Assist Standby Assistance,Contact Guard Assistance,1 Person Assistance,Use of Upper Extremities Comments Mobility Comments Pt sitting up in chair with significant other, helen Gray. Pt it agreeable to multiple gait trials with one sitting rest break and toileting. Pt is I with toileting in BR for urination. Gait Assessment Gait Gait Assistance Required: Standby Assistance,1 Person Assist Distance (Feet) 100 Able to Maintain Weight Bearing Status Yes During Gait Assistive Devices Assistive Device Gait Belt,Front Wheeled Walker Orthotic/Prosthetic Devices or Brace: No Gait Deviations General Gait Pattern Decreased Stride Length, Decreased Feet Clearance Factors Limiting Gait Function Factors Limiting Gait Function Decreased Activity Tolerance, Poor Balance Comments Gait Comments Pt gait trains 100'x1 with RW and SBA, 100'x1 without AD with CGA and 75'x2 without AD and CGA: pt does not plan to use AD at d/c. Decreased gait speed and arm swing with gait without AD. No evident LOB and pt is able to keep a conversation going with gait. Stair Climbing Assessment Evaluation Level of Assist On Stairs Contact Guard Assistance,1 Person Assistance Devices Stair Climbing Assistive Devices Right Railing Technique/Endurance Stair Climbing Direction Ascend and Descend Stair Climbing Technique Step Over Step,Step to Step Number of Steps Climbed 3 Stair Climbing Set # Repetitions (reps) 1 Comments Stair Climbing Comments Slow stepping and pt has trouble recalling which side her rail is on at home PT-Balance Assessment Sitting Balance and Reactions Static Sitting Balance Ability Good Dynamic Sitting Balance Ability Good Standing Balance and Reactions Static Standing Balance Ability Fair Dynamic Standing Balance Ability Fair M5 PT-IP Objective Assessments Start: 04/09/23 12:52 Freq: NEEDED Status: Active Protocol: Document 04/09/23 11:00 AB (Rec: 04/09/23 13:09 AB [id number]) Orientation Orientation/Cognition Level of Alertness Alert Orientation Name,Situation Language Function Ability No Deficits Noted Safety Awareness Decreased Safety Awareness Memory Description No Deficits Noted Gross Range of Motion Lower Extremity ROM Assessment Within Functional Limits Strength Lower Extremity Strength Assessment Within Functional Limits Muscle Tone Muscle Tone WNL Yes M6 PT-IP Treatment Start: 04/09/23 12:52 Freq: NEEDED Status: Active Protocol: Document 04/09/23 11:00 AB (Rec: 04/09/23 13:09 AB [id number]) Physical Therapy Treatment Education Education Provided Precautions,Post-Op Packet, Safety M7 PT-IP Assessment and Plan Start: 04/09/23 12:52 Freq: NEEDED Status: Active Protocol: Document 04/10/23 09:10 MB (Rec: 04/10/23 10:12 MB [id number]) PT Summary Assessment and Plan Potential Rehabilitation Potential Good Status of Condition at Evaluation Stable Summary Impairments Strength,Balance,Bed Mobility, Transfers,Gait,Activity Tolerance Assessment Summary Laney is progressing with mobility today and would like to d/c home with her significant other, Isaac, at d/ c. She does not wish to use an AD at d/c and they have many steps. Goals Bed Mobility Goal Independent Transfer Goal Independent,Front Wheeled Walker Gait Goal Independent,Front Wheel Walker Gait Distance 200 Other Goals improve transfers and ambulation using LRAD/without AD 300 ft mod I up/down 3 steps R rail mod I Days to Meet Goals 10 Frequency of Treatment Frequency Of Treatment Once a Day Treatment Plan Physical Therapy Treatment Plan Bed Mobility Training,Transfer Training,Gait Training, Therapeutic Exercise,Balance Retraining Other Recommendations and Next Treatment More gait and stair training Focus Precautions Abdominal Surgery Precautions Log Roll,Gait Belt above Incisional Area Recommendations To Nursing Amount of Assist Needed Standby Assistance,1 Person Assist Discharge Recommendations PT Discharge Recommendations Home with / Assist Available
--- NOTE | 2023-04-10 10:39 | CM.DPC ---
DCP Cont: Per Surgeon, pt making slow progress and switched to general diet for lunch to see how she can tolerate and to continue monitoring that she can void and have bm and potential d/c tomorrow if stable. SW observed pt ambulating without AD/DME with PT in the hallway and PT anticipates pt will continue to progress and likely not need HH. SW checked in with pt and she feels much better than yesterday and is glad to be ambulating but does not feel medically stable for d/c yet today and is hopeful she can tolerate general diet this afternoon. But unsure if she feels she will need HH RN or PT and is willing to consider it but wants to wait to see how she feels tomorrow as she thinks she will likely be alright to d/c without the need for HH or being homebound. Plan: SW to follow for plan of d/c home when tolerating diet and medically stable and to continue to r/o HH as pt feels she likely will not be homebound. SHANE York
[2023-04-10] MEDS: POTASSIUM CHLORIDE 20 MEQ TAB PO (13:37)
[2023-04-10] MEDS: TRAMADOL 50 MG TABLET PO (18:15)
[2023-04-11] VITALS (11 sets, daily range): BP systolic 113–140; BP diastolic 58–69; PULSE 63–76; RESP 16–18; TEMP 36.2–37; O2SAT 90–96
[2023-04-11 04:34] LABS: Add Manual Diff / Slide Review NO; Basophils Absolute Auto 0 /uL (0-100); Basophils Percent Auto 0.2 % (0-2); Eosinophils Absolute Auto 200 /uL (0-450); Hematocrit 32.4 % (36-46); Hemoglobin 10.9 g/dL (12.0-16.0); Lymphocytes Absolute Auto 2500 /uL (1100-4500); Mean Corpuscular HGB Conc 33.7 % (30-36); Mean Corpuscular Hemoglobin 29.3 PG (26-34); Mean Corpuscular Volume 86.9 fL (80-100); Monocytes Absolute Auto 700 /uL (0-900); Monocytes Percent Auto 7.6 % (3-14); Neutrophils Absolute Auto 5600 /uL (1500-7000); Neutrophils Percent Auto 62.2 % (50-75); Platelet Count 286 X10^3/uL (150-400); Red Blood Cell Count 3.73 X10^6/uL (4.0-5.2); Red Cell Distribution Width 13.2 % (11.6-14.8); White Blood Cell Count 9.1 X10^3/uL (4.5-11.0)
[2023-04-11 04:57] LABS: BUN Creatinine Ratio 22.6 (6-22); Blood Urea Nitrogen 12 mg/dL (7-17); Calcium 8.5 mg/dL (8.4-10.2); Carbon Dioxide 30 mmol/L (22-32); Chloride 99 mmol/L (98-107); Estimated Glomerular Filt Rate > 60 mL/min (>60); Glucose 97 mg/dL (80-110); HEMOLYSIS < 15 (0-50); Potassium 3.6 mmol/L (3.4-5.1); Sodium 134 mmol/L (137-145)
[2023-04-11] MEDS: TRAMADOL 50 MG TABLET PO ×2 (08:32→22:17)
[2023-04-11] MEDS: ENOXAPARIN 40 MG/0.4 ML SYRINGE SUBCUT (08:32)
[2023-04-11] MEDS: DOCUSATE 100 MG CAPSULE PO ×2 (08:32→20:37)
--- NOTE | 2023-04-11 12:07 | PM.PNPO.1 ---
Subjective Subjective Date Patient Seen: 04/11/23 Time Patient Seen: 12:07 Interval history: Sleeping in chair. No BM, ?no flatus. Soft abdomen, dressing intact. Labs are WNL Exam Vital Signs (past 8 hours): - 04/11/23 04:30 04/11/23 06:00 04/11/23 08:13 Temperature 97.2 F L 97.7 F Pulse Rate 68 65 Respiratory Rate 18 18 Blood Pressure 136/69 113/59 L Pulse Oximetry 94 94 92 Oxygen Delivery Method Room Air Oxygen Flow Rate 1 0 Oxygen Delivery Method Room Air Oxygen Flow Rate 0 Objective Labs 04/11/23 04:15 04/11/23 04:15 Labs: Laboratory Results - last 24 hr 04/11/23 04:15 WBC 9.1 RBC 3.73 L Hgb 10.9 L Hct 32.4 L MCV 86.9 MCH 29.3 MCHC 33.7 RDW 13.2 Plt Count 286 Neut % (Auto) 62.2 Lymph % (Auto) 28.0 [place] % (Auto) 7.6 Eos % (Auto) 2.0 Baso % (Auto) 0.2 Neut # (Auto) 5600 Lymph # (Auto) 2500 [place] # (Auto) 700 Eos # (Auto) 200 Baso # (Auto) 0 Sodium 134 L Potassium 3.6 Chloride 99 Carbon Dioxide 30 BUN 12 Creatinine 0.53 Estimated GFR > 60 BUN/Creatinine Ratio 22.6 H Glucose 97 Calcium 8.5 PFSH Medical History 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) Afib Uncomplicated asthma Atherosclerotic vascular disease Hernia Pedal edema Acid reflux History of Holter monitoring SVT (supraventricular tachycardia) Sleep apnea Sinus bradycardia Asthma Hyperlipidemia Palpitations Mitral valve regurgitation History of pneumonia Ventral hernia Polymyalgia rheumatica Surgical History History of hernia repair (01/03/18) H/O bilateral cataract extraction Cataract extraction status of left eye Previous section Family History Father Cancer Father Leukemia Mother Dementia Social History marital status: unknown household members: significant other lives independently: Yes occupational status: previously employed Smoking Status: Never smoker alcohol intake: current substance use type: does not use Assessment & Plan Post-op Postoperative Procedures: Procedures Operation Date: 04/08/23 14:30 Actual Procedure Side Surgeon p INCISION AND DRAINAGE OF ABDOMINAL ABSCESS, EXPORATORY LAPAROTOMY, SMALL BOWEL RESECTION WITH REMOVAL OF MESH Not Applicable Jose Lewis MD Postoperative day: 3 Postoperative status: doing well Postoperative plan: routine post-op care Postoperative plan narrative: diet advanced, continue supportive care. Time Spent With Patient Time with patient: less than 15 minutes
[2023-04-11] MEDS: ACETAMINOPHEN 325 MG TABLET 650 MG PO (12:44)
--- NOTE | 2023-04-11 12:47 | PT.IPTN ---
Current Diagnoses Cutaneous abscess, unspecified (04/08/23) Surgery Performed Operation Date: 04/08/23 14:30 Actual Procedures p INCISION AND DRAINAGE OF ABDOMINAL ABSCESS, EXPORATORY LAPAROTOMY, SMALL BOWEL RESECTION WITH REMOVAL OF MESH(Not Applicable) - Jose Lewis MD Physical Therapy Treatment Note M2 PT-IP Current Condition Start: 04/09/23 12:52 Freq: NEEDED Status: Active Protocol: Document 04/09/23 11:00 AB (Rec: 04/09/23 13:09 AB [id number]) Physical Therapy Current Condition Current Condition Evaluation Date 04/09/23 Treatment Diagnosis s/p ex-lap and enterectomy; difficulty in walking Onset Date 04/08/23 M3 PT-IP Subjective Start: 04/09/23 12:52 Freq: NEEDED Status: Active Protocol: Document 04/11/23 12:47 AW (Rec: 04/11/23 12:57 AW [id number]) Subjective Physical Therapy Visit Type Type Treatment Note Visit Start Time 12:28 Visit Stop Time 12:47 Total Visit Minutes 19 Number of CANDY PULLER Visits 0 Physical Therapy Visit Comments Patient Comments Pt has been ambulating in the room and short distances in the hallway. Therapy Pain Assessment Pain When Pain Assessed During Mobility Pain Present Pain Present Pain Reported Location Abdomen Scale Used not quantified M4 PT-IP Mobility and Gait Start: 04/09/23 12:52 Freq: NEEDED Status: Active Protocol: Document 04/11/23 12:47 AW (Rec: 04/11/23 12:57 AW [id number]) PT-Transfer Assessment Sit to and From Stand Sit to and from Stand Standby Assistance,Use of Upper Extremities Equipment Transfer Assistive Device None Transfers Transfer Destination Chair Transfer Technique Stand Step Pivot Transfer Ability Level of Assist Standby Assistance,Use of Upper Extremities Comments Mobility Comments Pt sitting up in the chair with lunch tray, states she is finished and ready to engage with PT. Pt ambulates in the hallway without AD, no LOB observed. Pt supports her abdomen with one or both arms during gait and does reach for the wall once or twice during long gait trial. Gait Assessment Gait Gait Assistance Required: Standby Assistance Distance (Feet) 250 Assistive Devices Assistive Device None Gait Deviations General Gait Pattern Decreased Stride Length, Decreased Feet Clearance Factors Limiting Gait Function Factors Limiting Gait Function Decreased Activity Tolerance, Decreased Strength,Pain Comments Gait Comments Gait is slow but steady. Pt tolerating longer distances today. Stair Climbing Assessment Evaluation Level of Assist On Stairs Standby Assistance Devices Stair Climbing Assistive Devices Right Railing Technique/Endurance Stair Climbing Direction Ascend and Descend Stair Climbing Technique Step Over Step Number of Steps Climbed 3 Stair Climbing Set # Repetitions (reps) 2 Comments Stair Climbing Comments Slow and deliberate, steady. PT-Balance Assessment Sitting Balance and Reactions Static Sitting Balance Ability Good Dynamic Sitting Balance Ability Good Standing Balance and Reactions Static Standing Balance Ability Fair Dynamic Standing Balance Ability Fair Device Used none M5 PT-IP Objective Assessments Start: 04/09/23 12:52 Freq: NEEDED Status: Active Protocol: Document 04/09/23 11:00 AB (Rec: 04/09/23 13:09 AB [id number]) Orientation Orientation/Cognition Level of Alertness Alert Orientation Name,Situation Language Function Ability No Deficits Noted Safety Awareness Decreased Safety Awareness Memory Description No Deficits Noted Gross Range of Motion Lower Extremity ROM Assessment Within Functional Limits Strength Lower Extremity Strength Assessment Within Functional Limits Muscle Tone Muscle Tone WNL Yes M6 PT-IP Treatment Start: 04/09/23 12:52 Freq: NEEDED Status: Active Protocol: Document 04/11/23 12:47 AW (Rec: 04/11/23 12:57 AW [id number]) Physical Therapy Treatment Other Treatments Other Treatment Performed Education on benefits of continued mobility for return of bowel function and maintenance of baseline strength. M7 PT-IP Assessment and Plan Start: 04/09/23 12:52 Freq: NEEDED Status: Active Protocol: Document 04/11/23 12:47 AW (Rec: 04/11/23 12:57 AW [id number]) PT Summary Assessment and Plan Summary Impairments Strength,Balance,Bed Mobility, Transfers,Gait,Activity Tolerance Progress Towards Goals Progressing Toward Goals Assessment Summary Laney continues to deal with some abdominal pain and walks with her arm(s) supporting her abdomen. Gait trials without AD are successful today and pt tolerates much longer distance. She declined bed mobility, returning to the chair at end of session. Will follow up once more to assess bed mobility. PT recommends discharge home with assist and home PT. Goals Bed Mobility Goal Independent Transfer Goal Independent,Front Wheeled Walker Gait Goal Independent,Front Wheel Walker Gait Distance 200 Other Goals improve transfers and ambulation using LRAD/without AD 300 ft mod I up/down 3 steps R rail mod I Days to Meet Goals 10 Frequency of Treatment Frequency Of Treatment Once a Day Treatment Plan Physical Therapy Treatment Plan Bed Mobility Training,Transfer Training,Gait Training, Therapeutic Exercise,Balance Retraining Other Recommendations and Next Treatment Assess bed mobility. If goal Focus met, may consider dc from acute PT. Precautions Abdominal Surgery Precautions Log Roll,Lifting Restrictions, Gait Belt above Incisional Area Recommendations To Nursing Amount of Assist Needed Standby Assistance Discharge Recommendations PT Discharge Recommendations Home with 24/7 Assist Available,Home Health Equipment Needed for Home Before FWW if pt goes home an not Discharge safe without AD Transportation Needs at Discharge Private Vehicle
--- NOTE | 2023-04-11 13:07 | CM.DPNOTE ---
DCP Note BELLMAN reviewed EMR. Per PT, ambulating well enough for home with assistance. Per surgeon, wants to keep pt another night for BM/continue to monitor/advancing diet. BELLMAN met with pt in room and introduced self and role. Pt resting in chair. Pt reports no need for HH. Pt confirms delaying [place] trip for another month. Pt denies need for walker at this time. Pt is hopeful to dc home tomorrow. Pt denies CM needs at this time. Pt was debating which of her two residents she wants to stay at for the moment- one of them has no stairs and is all one floor that she believes would be a better fit for her now. Plan: home with partner when medically stable, likely tomorrow. No CM needs at this time. CM team will continue to follow as needed. SHANE Abbott
[2023-04-12] VITALS (8 sets, daily range): BP systolic 82–133; BP diastolic 54–72; PULSE 60–90; RESP 16–20; TEMP 36.3–37.1; O2SAT 92–96
[2023-04-12] MEDS: METOPROLOL TARTRATE 5 MG/5 ML INJ IV (06:13)
--- NOTE | 2023-04-12 06:13 | PM.CALLCOV.1 ---
Call Coverage Note Note Date of Patient Contact: 04/12/23 Time of Patient Contact: 06:13 Narrative of Care Provided: nurse reports patient complaint of heart racing. Tele showed HR 160, no chest pain and BP stable. Plan: 12 lead EKG, BMP, Troponin, Metoprolol 5mg IV push.
--- NOTE | 2023-04-12 06:24 | PC.NURSE ---
cage shift manager: Notified by NUCLEAR POWER REACTOR OPERATOR that patient stated she felt her heart racing when getting ready to get OOB, pulse ox monitor showed HR in 140's. Placed patient on tele, showed sinus tachycardia in 150's-160's. Notified MD Ibarra, new orders placed: 12-lead EKG, 5mg IV Metoprolol, Troponin & BMP lab draws. New orders completed. Patient currently in afib, HR in 90's-100's. Patient stated that she felt her heart race for about a minute but after that she felt fine. Denies pain, chest pain, dizziness, and nausea. Will continue to monitor.
[2023-04-12 06:43] LABS: Troponin I 0.044 ng/mL (0.01-0.034)
[2023-04-12 06:45] LABS: BUN Creatinine Ratio 23.5 (6-22); Blood Urea Nitrogen 12 mg/dL (7-17); Calcium 9.1 mg/dL (8.4-10.2); Carbon Dioxide 30 mmol/L (22-32); Chloride 101 mmol/L (98-107); Estimated Glomerular Filt Rate > 60 mL/min (>60); Glucose 111 mg/dL (80-110); HEMOLYSIS < 15 (0-50); Potassium 3.8 mmol/L (3.4-5.1); Sodium 136 mmol/L (137-145)
--- NOTE | 2023-04-12 07:32 | DI.ECHO.S_ITS ---
[place] +---------+ Hospital +---------+ : : [address] : : : : [id number] : : : : Phone: [phone]+ Echocardiogram Report + + :Name: JACQUIE LOW Study Date: 04/12/2023 Height: 66 in : :[facility] ReadingLocation: Weight: 179 lb: : Gender: Female BSA: 1.9 m2 : :: 1940 Age: 82 yrs BP: 82/61 mmHg: :Reason For Study: TACHYCARDIA : :Ordering Physician: LUKAS : :NISHI Performed By: Marissa Parrish : :Referring: NISHI GAYTAN L : + + Interpretation Summary The ejection fraction is estimated to be 60-65%. There is mild tricuspid regurgitation. The right ventricular systolic pressure is estimated to be at least 21 mmHg based on an estimated right atrial pressure of 3 mm Hg. Procedure: A two-dimensional transthoracic echocardiogram with color flow and Doppler was performed. The study quality was technically difficult. Comparison is made with the echocardiogram of 09/09/2021. The patient was in sinus tachycardia with heart rates between 88-117 bpm during the exam. Left Ventricle: The left ventricle is normal in size. There is mild concentric left ventricular hypertrophy. The ejection fraction is estimated to be 60-65%. There has been no significant change since the previous exam. Left ventricular wall motion is normal. Right Ventricle: There is a pacemaker lead in the right ventricle. The right ventricle is normal in size, thickness and function. Right ventricular systolic function is mildly reduced. Atria: The left atrial size is normal. Right atrial size is normal. There is no Doppler evidence for an interatrial shunt. Mitral Valve: The mitral valve leaflets appear mildly thickened, but open well. There is mild mitral annular calcification. There is trace mitral regurgitation. Aortic Valve: The aortic valve is trileaflet. The aortic valve opens well. There is no aortic valve stenosis. No aortic regurgitation is present. Tricuspid Valve: The tricuspid valve is normal in structure and function. There is mild tricuspid regurgitation. The right ventricular systolic pressure is estimated to be at least 21 mmHg based on an estimated right atrial pressure of 3 mm Hg. Pulmonic Valve: The pulmonic valve leaflets are thin and pliable; valve motion is normal. There is no pulmonic valvular regurgitation. Great Vessels: The aortic root is normal size. The ascending aorta is at the upper limits of normal in size. The IVC is of normal diameter and collapses greater than 50% with a sniff. This suggests a low right atrial pressure of 3 mm Hg. Pericardium/ Pleura There is no pericardial effusion. There is no pleural effusion. MMode/2D Measurements & Calculations LVIDd: 4.8 cm LVOT diam: 2.1 cm LVIDs: 3.3 cm Ao root diam: 3.3 cm FS: 30.3 % asc Aorta Diam: 3.8 cm IVSd: 1.4 cm Ao Arch Diam (Prox Trans): 2.4 cm LVPWd: 1.1 cm LV carbajal. diameter/BSA (cm/m^2): 2.5 LV sys. diameter/BSA (cm/m^2): 1.7 LA A2 area: 19.5 cm2 RA long axis: 4.8 cm LA A4 area: 18.9 cm2 RA area: 13.2 cm2 LA length (vol): 5.4 cm RA vol: 30.7 ml LA vol: 57.6 ml RA : 16.1 ml/m2 LA vol index: 30.2 ml/m2 IVC diam: 0.97 cm RVD1 (basal): 3.2 cm TAPSE: 1.2 cm Doppler Measurements & Calculations Ao V2 max: 116.1 cm/sec LVOT Max Maximo: 106.5 cm/sec Ao V2 mean: 86.1 cm/sec LV V1 max P.5 mmHg Ao max P.4 mmHg LV V1 VTI: 16.9 cm Ao mean P.3 mmHg HECTOR(I,D): 2.9 cm2 Ao V2 VTI: 21.1 cm HECTOR(V,D): 3.3 cm2 sev ratio: 0.80 HECTOR indexed to BSA (cm^2/m^2): 1.5 MV E max maximo: 60.2 cm/sec TR max maximo: 212.5 cm/sec MV A max maximo: 84.4 cm/sec TR max P.1 mmHg MV E/A: 0.71 PA pr(Accel): 49.9 mmHg Med Peak E' Maximo: 9.4 cm/sec E/E' med: 6.4 Lat Peak E' Maximo: 13.3 cm/sec E/E' lat: 4.5 E/e' average: 5.5 MV dec time: 0.20 sec [facility] 61.2 ml Reading Physician:02:00 PM
[2023-04-12] MEDS: SODIUM CHLORIDE 0.9% 1,000 ML 1000 ML IV (08:02)
[2023-04-12] MEDS: DOCUSATE 100 MG CAPSULE PO ×2 (08:09→20:24)
[2023-04-12] MEDS: ENOXAPARIN 40 MG/0.4 ML SYRINGE SUBCUT (08:09)
--- NOTE | 2023-04-12 08:41 | P.CONS_ITS ---
History of Present Illness Consult details Date Patient Seen: 04/12/23 Time Patient Seen: 08:41 Chief complaint: SDC Narrative: I was asked by Dr. Ibarra to see this pleasant 82-year-old female. She is status post incision and drainage of abdominal abscess, with exploratory laparotomy and small-bowel resection with removal of mesh. The patient is postop day 3. She is noted to have tachycardia which responded to 1 dose of IV metoprolol. She then developed mild hypotension after this which was asymptomatic. In speaking with her she is followed by Cardiology at [facility]. She sees Dr. Perez who placed the pacemaker about 4 years ago, as well as Dr. Conner. She relates what sounds to be a history of paroxysmal atrial fibrillation and has been on Xarelto for over a year. The patient was noted to be in atrial fibrillation with tachycardia this morning on ECG. The patient did respond to the IV metoprolol with good rate control. She denies any chest pain, or dyspnea. She does feel palpitations from time to time but these are always a little unclear to her in terms of her symptoms. She denies recent cough, or shortness of breath. No edema. She did have transient left leg edema some time ago with a negative ultrasound for DVT. Meds Home Medications and Allergies Home Medications Medication Instructions Recorded Confirmed Type cholecalciferol (vitamin D3) 1 tab PO DAILY 03/31/23 04/08/23 History coenzyme Q10 200 mg capsule (Co 200 mg PO DAILY 03/31/23 04/08/23 History Q-10) rivaroxaban 20 mg tablet (Xarelto) 20 mg PO DAILY 03/31/23 04/08/23 History rosuvastatin 10 mg tablet 10 mg PO DAILY 03/31/23 04/08/23 History vitamin V83-vdcds acid 1 tab PO DAILY 03/31/23 04/08/23 History amoxicillin 875 mg-potassium 1 tab PO BID 04/08/23 04/08/23 History clavulanate 125 mg tablet Allergies Allergy/AdvReac Type Severity Reaction Status Date / Time No Known Drug Allergies Allergy Verified 03/31/23 09:22 Review of Systems Review of Systems Narrative: All else reviewed and otherwise noncontributory except as noted in the history and physical. Exam Vital Signs (past 8 hours): - 04/12/23 00:50 04/12/23 04:56 04/12/23 06:45 Temperature 98.6 F 98.7 F Pulse Rate 60 80 90 Respiratory Rate 16 18 Blood Pressure 130/61 114/65 87/56 L Pulse Oximetry 92 94 Oxygen Flow Rate 0 0 04/12/23 08:07 Temperature 97.3 F L Pulse Rate 60 Respiratory Rate 20 Blood Pressure 82/61 L Pulse Oximetry 93 Oxygen Flow Rate 0 Oxygen Delivery Method Room Air Oxygen Flow Rate 0 Narrative Exam Narrative: No acute distress, normal affect and normal speech. Normocephalic skull. Pupils symmetric, EOMI, gaze conjugate. Normal neck and no facial droop. Midline trachea. Lungs are clear with normal rate and effort. Heart is irregular without murmur, gallop or rub. Abdomen is soft, non-tender. Extremities are free of edema. Skin is otherwise free of rash or lesions. Joints are free of deformity. Objective ECG Impression: Atrial fibrillation with tachycardia. No ischemic changes. Imaging CT scan - abdomen: Radiologist's impression: 3.7 cm subcutaneous abscess seen just superior to the umbilicus, with surrounding moderate inflammatory change. Negative for ventral hernia. The endometrial stripe appears thickened at 7 mm in this postmenopausal patient. If clinically appropriate, please consider a follow-up pelvic ultrasound for further evaluation. US - abdomen: Radiologist's impression: There is a heterogeneous ill-defined region of echogenicity within the previous abscess site measuring 26 mm x 12 mm x 13 mm, consistent with focal cellulitis versus phlegmon. IMPRESSION: Cellulitis versus phlegmon as described above. Labs 04/11/23 04:15 04/12/23 06:09 Labs: Laboratory Results - last 24 hr 04/12/23 06:09 Sodium 136 L Potassium 3.8 Chloride 101 Carbon Dioxide 30 BUN 12 Creatinine 0.51 L Estimated GFR > 60 BUN/Creatinine Ratio 23.5 H Glucose 111 H Calcium 9.1 Troponin I 0.044 H [facility] Medical History 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) Afib Uncomplicated asthma Atherosclerotic vascular disease Hernia Pedal edema Acid reflux History of Holter monitoring SVT (supraventricular tachycardia) Sleep apnea Sinus bradycardia Asthma Hyperlipidemia Palpitations Mitral valve regurgitation History of pneumonia Ventral hernia Polymyalgia rheumatica Surgical History History of hernia repair (01/03/18) H/O bilateral cataract extraction Cataract extraction status of left eye Previous section Family History Father Cancer Father Leukemia Mother Dementia Social History marital status: unknown household members: significant other lives independently: Yes occupational status: previously employed Tobacco & Substance Use Smoking Status: Never smoker alcohol intake: current substance use type: does not use Assessment & Plan Assessment & Plan narrative: 1. Paroxysmal atrial fibrillation with rapid response, new and active. 2. Mild hypotension secondary to metoprolol IV, new and improving. Plan: -fluid bolus and follow pressure. -introduce metoprolol 12.5 p.o. b.i.d. later today if able based on heart rate and pressures. -we will touch base with her primary packing tractor machine operator to confirm history of PAF and seek any other recommendations. Time Spent With Patient Time with patient: 30 to 49 minutes with 50% spent counseling/coordinating care
--- NOTE | 2023-04-12 09:25 | PT.IPTN ---
Current Diagnoses Cutaneous abscess, unspecified (04/08/23) Surgery Performed Operation Date: 04/08/23 14:30 Actual Procedures p INCISION AND DRAINAGE OF ABDOMINAL ABSCESS, EXPORATORY LAPAROTOMY, SMALL BOWEL RESECTION WITH REMOVAL OF MESH(Not Applicable) - Jose Lewis MD Physical Therapy Treatment Note M2 PT-IP Current Condition Start: 04/09/23 12:52 Freq: NEEDED Status: Active Protocol: Document 04/09/23 11:00 AB (Rec: 04/09/23 13:09 AB [id number]) Physical Therapy Current Condition Current Condition Evaluation Date 04/09/23 Treatment Diagnosis s/p ex-lap and enterectomy; difficulty in walking Onset Date 04/08/23 M3 PT-IP Subjective Start: 04/09/23 12:52 Freq: NEEDED Status: Active Protocol: Document 04/12/23 09:25 AB (Rec: 04/12/23 11:48 AB [id number]) Subjective Physical Therapy Visit Type Type Treatment Note Visit Start Time 09:25 Visit Stop Time 09:45 Total Visit Minutes 20 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 BP sittin/59 O2 sat at RA: 94% and IA: 83-94. completed sit to stand SBA and ambulated in the hallway ~ 300ft without AD. Slow paced gait with slight unsteadiness but without LOB. pt completed up/down steps using R rail ascending SBA. pt ambulated back to her room without AD SBA. pt refused to do bed mobility and stated that she plans to sleep on her recliner at this time. reviewed abdominal precautions with pt and spouse. pt sat on her chair and positioned. call light and table placed next to pt. pt agreed to ambulate as much as she can with nursing staff. pt wants to d/c from PT and currently is only needing SBA with mobility and can mobilize with nursing staff. no further PT needs at this time. Gait Assessment Gait Gait Assistance Required: Standby Assistance Distance (Feet) 300 Able to Maintain Weight Bearing Status Yes During Gait Assistive Devices Assistive Device None,Gait Belt Orthotic/Prosthetic Devices or Brace: No Gait Deviations General Gait Pattern Decreased Stride Length, Decreased Feet Clearance Factors Limiting Gait Function Factors Limiting Gait Function Decreased Activity Tolerance, Decreased Strength,Pain,Poor Balance Stair Climbing Assessment Evaluation Level of Assist On Stairs Standby Assistance Devices Stair Climbing Assistive Devices Right Railing Technique/Endurance Stair Climbing Direction Ascend and Descend Stair Climbing Technique Step to Step Number of Steps Climbed 3 Stair Climbing Set # Repetitions (reps) 1 M5 PT-IP Objective Assessments Start: 04/09/23 12:52 Freq: NEEDED Status: Active Protocol: Document 04/09/23 11:00 AB (Rec: 04/09/23 13:09 AB [id number]) Orientation Orientation/Cognition Level of Alertness Alert Orientation Name,Situation Language Function Ability No Deficits Noted Safety Awareness Decreased Safety Awareness Memory Description No Deficits Noted Gross Range of Motion Lower Extremity ROM Assessment Within Functional Limits Strength Lower Extremity Strength Assessment Within Functional Limits Muscle Tone Muscle Tone WNL Yes M6 PT-IP Treatment Start: 04/09/23 12:52 Freq: NEEDED Status: Active Protocol: Document 04/12/23 09:25 AB (Rec: 04/12/23 11:48 AB [id number]) Physical Therapy Treatment Education Education Provided Precautions,Safety M7 PT-IP Assessment and Plan Start: 04/09/23 12:52 Freq: NEEDED Status: Active Protocol: Document 04/12/23 09:25 AB (Rec: 04/12/23 11:48 AB [id number]) PT Summary Assessment and Plan Potential Rehabilitation Potential Good Summary Impairments Pain,ROM,Strength,Balance, Coordination,Bed Mobility, Transfers,Gait,Activity Tolerance Progress Towards Goals Safe For Discharge Assessment Summary Pt needing SBA with mobilities without AD and plans to go home with spouse to assist her as needed. Pt is aware of her precautions and importance with mobility and agreed to ambulate with nursing staff. No further PT needs at this time. Frequency of Treatment Frequency Of Treatment Discharge Precautions Abdominal Surgery Precautions Log Roll,Lifting Restrictions, Gait Belt above Incisional Area Recommendations To Nursing Amount of Assist Needed Standby Assistance Discharge Recommendations PT Discharge Recommendations Home with Assistance Transportation Needs at Discharge Private Vehicle
[2023-04-12 11:52] LABS: Troponin I 0.062 ng/mL (0.01-0.034)
[2023-04-12] MEDS: METOPROLOL IR 25 MG TABLET 12.5 MG PO ×2 (12:15→20:25)
--- NOTE | 2023-04-12 13:39 | PM.PNPO.1 ---
Subjective Subjective Date Patient Seen: 04/12/23 Time Patient Seen: 13:39 Interval history: Episode of atrial fibrillation overnight no chest pain or shortness of breath. Minimal abdominal pain Tolerating diet + flatus Exam Vital Signs (past 8 hours): - 04/12/23 06:45 04/12/23 08:07 04/12/23 08:30 Temperature 97.3 F L Pulse Rate 90 60 83 Respiratory Rate 20 Blood Pressure 87/56 L 82/61 L 133/72 Pulse Oximetry 93 95 Oxygen Flow Rate 0 0 04/12/23 11:10 Temperature 97.4 F L Pulse Rate 66 Respiratory Rate 20 Blood Pressure 114/71 Pulse Oximetry 94 Oxygen Flow Rate 0 Oxygen Delivery Method Room Air Oxygen Flow Rate 0 Narrative Exam Narrative: General adult woman alert oriented no acute distress Abdomen soft nontender nondistended Extremities warm well perfused Objective Labs 04/11/23 04:15 04/12/23 06:09 Labs: Laboratory Results - last 24 hr 04/12/23 04/12/23 06:09 11:14 Sodium 136 L Potassium 3.8 Chloride 101 Carbon Dioxide 30 BUN 12 Creatinine 0.51 L Estimated GFR > 60 BUN/Creatinine Ratio 23.5 H Glucose 111 H Calcium 9.1 Troponin I 0.044 H 0.062 H PFSH Medical History 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) Afib Uncomplicated asthma Atherosclerotic vascular disease Hernia Pedal edema Acid reflux History of Holter monitoring SVT (supraventricular tachycardia) Sleep apnea Sinus bradycardia Asthma Hyperlipidemia Palpitations Mitral valve regurgitation History of pneumonia Ventral hernia Polymyalgia rheumatica Surgical History History of hernia repair (01/03/18) H/O bilateral cataract extraction Cataract extraction status of left eye Previous section Family History Father Cancer Father Leukemia Mother Dementia Social History marital status: unknown household members: significant other lives independently: Yes occupational status: previously employed Smoking Status: Never smoker alcohol intake: current substance use type: does not use Assessment & Plan Post-op Postoperative Procedures: Procedures Operation Date: 04/08/23 14:30 Actual Procedure Side Surgeon p INCISION AND DRAINAGE OF ABDOMINAL ABSCESS, EXPORATORY LAPAROTOMY, SMALL BOWEL RESECTION WITH REMOVAL OF MESH Not Applicable Jose Lewis MD Postoperative status narrative: #POD4 status post ex lap small bowel resection with removal of mesh. She is tolerating a diet and bowels are functioning. # Atrial fibrillation with demand ischemia. Medicine consult, recommendations are appreciated. -echocardiogram pending -adding metoprolol 12.5 mg b.i.d. -trend troponin anticipate discharge home tomorrow if troponin is down trending
--- NOTE | 2023-04-12 13:52 | CM.DPNOTE ---
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 Per chart review, hospitalist consulted due to pt having afib with rvr overnight. Per hospitalist in morning rounds, rate controlled, echo pending. Per surgeon 04.12.23 note, She is tolerating a diet and bowels are functioning...anticipate discharge home tomorrow if troponin is down trending. No additional CM needs identified. PT continues to rec home with assistance. Plan: home with partner when medically stable, likely tomorrow. No CM needs identified at this time. CM team will continue to follow as needed. SHANE Abbott
[2023-04-12 19:29] LABS: Troponin I 0.041 ng/mL (0.01-0.034)
[2023-04-12] MEDS: ACETAMINOPHEN 325 MG TABLET 650 MG PO (20:30)
[2023-04-13 00:15] VITALS: BP 127/64; PULSE 66; RESP 16; TEMP 36.9; O2SAT 94
[2023-04-13 04:45] VITALS: BP 138/73; PULSE 68; RESP 16; TEMP 37; O2SAT 94
[2023-04-13 08:00] VITALS: BP 148/72; PULSE 60; RESP 16; TEMP 36.7; O2SAT 95
--- NOTE | 2023-04-13 08:15 | PM.PN.1 ---
Subjective Subjective Interval history: Date of service is April 13. Patient is doing well, no palpitations or chest pain. Heart rate is regular in the 80s. She is cleared medically for discharge per surgery. Exam Vital Signs (past 8 hours): - 04/13/23 04:45 Temperature 98.6 F Pulse Rate 68 Respiratory Rate 16 Blood Pressure 138/73 Pulse Oximetry 94 Oxygen Flow Rate 0 Oxygen Delivery Method Room Air Oxygen Flow Rate 0 Narrative Exam Narrative: NAD, fluent speech. Lungs are clear with normal rate and effort. Heart is regular in rate and rhythm. Abdomen is soft, flat. No leg edema. 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) Afib Uncomplicated asthma Atherosclerotic vascular disease Hernia Pedal edema Acid reflux History of Holter monitoring SVT (supraventricular tachycardia) Sleep apnea Sinus bradycardia Asthma Hyperlipidemia Palpitations Mitral valve regurgitation History of pneumonia Ventral hernia Polymyalgia rheumatica Surgical History History of hernia repair (01/03/18) H/O bilateral cataract extraction Cataract extraction status of left eye Previous section Family History Father Cancer Father Leukemia Mother Dementia Social History marital status: unknown household members: significant other lives independently: Yes occupational status: previously employed Smoking Status: Never smoker alcohol intake: current substance use type: does not use Assessment & Plan Assessment & Plan narrative: 1. Paroxysmal atrial fibrillation with rapid response, new and active. 2. Mild hypotension secondary to metoprolol IV, new and improving. She was started on metoprolol 12.5 p.o. b.i.d. yesterday with good improvement of heart rate. She also was given a fluid bolus with resolution of hypotension. She appears to be in normal sinus rhythm on exam today. She is open to taking metoprolol 25 XL daily at home until she follows up with her primary coil placer,, Dr Bach. Dr. Cheri aramubla was informed of medication changes at discharge and events. Patient needs a prescription to [facility] for metoprolol XL 25 mg p.o. daily at discharge. Medicine signing off.
[2023-04-13] MEDS: ENOXAPARIN 40 MG/0.4 ML SYRINGE SUBCUT (08:42)
[2023-04-13] MEDS: METOPROLOL IR 25 MG TABLET 12.5 MG PO (08:42)
[2023-04-13] MEDS: DOCUSATE 100 MG CAPSULE PO (08:43)
--- NOTE | 2023-04-13 09:16 | CM.DPC ---
DCP Cont. Reviewed EMR and team rounds for status updates. Plan is for pt to d/c after she meets later this morning with Dr. Lewis. Her significant other will plan to transport her home. No further DCP needs identified at this time.
[2023-04-13] MEDS: ACETAMINOPHEN 325 MG TABLET 650 MG PO (09:36)
--- NOTE | 2023-04-13 11:31 | PC.NURSE ---
Pt is dressed and ready for discharge home with Spouse. IV and tele have been removed. Went over d/c instructions with Pt and Spouse-discussed d/c meds, time of last dose, reviewed stroke education, wound care, showering, lifting restrictions, diet, s/s of infection, drinking plenty of fluids to prevent constipation or dehydration, getting up slowly from bed or chair to prevent dizziness or hypotension secondary to starting a new beta ac and follow up. Pt denied further questions and was taken out via w/c by RN to pov with Spouse and all belongings.
--- NOTE | 2023-04-13 19:00 | PM.DS.1 ---
History of Present Illness History of Present Illness Date Patient Seen: 04/13/23 Time Patient Seen: 19:01 Chief complaint: SDC Narrative: 82-year-old woman with a remote history of a umbilical hernia repair with mesh who presents with an abdominal wall abscess near the umbilicus. She is taken to the operating room for an incision and drainage Discharge Providers Provider Date of admission: 04/08/23 16:15 Discharge Date: 04/13/23 Primary care physician: Sil Martínez MD Consults: 04/08/23 16:54 Consult to Physical Therapy Evaluate & Treat Comment: Physician Instructions: Evaluate and Treat 04/12/23 06:27 Consult to Hospitalist Service Routine Comment: Consulting Provider: Bruce Baptiste Reason for consultation: HR 160, hemodynamic stable Has provider been notified: No Discharge provider: Jose Lewis MD Summary Hospital Course Discharge Diagnosis: Enterocutaneous fistula Hospital Course: Patient underwent a incision and drainage of an abdominal wall abscess April 08, 2023. Intraoperatively a enterocutaneous fistula was identified between a portion of mid small bowel to the mesh which was resulting in the abdominal wall abscess. The procedure was converted to an exploratory laparotomy and enterectomy. The small bowel with the attached and umbilical mesh was resected and a small-bowel anastomosis was performed. She tolerated the operation well and remained hospitalized until she had return of bowel function. During her hospitalization she had an episode of paroxysmal atrial fibrillation with rapid response with associated hypotension. An echocardiogram was performed which was normal and she is discharged on metoprolol 25 mg extended release once daily per Internal Medicine recommendations. Exam Vital Signs (past 8 hours): Oxygen Delivery Method Room Air Oxygen Flow Rate 0 Narrative Exam Narrative: General adult woman alert oriented no acute distress Chest nonlabored respiration Abdomen soft nontender nondistended. Midline dressing clean dry intact. 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) Afib Uncomplicated asthma Atherosclerotic vascular disease Hernia Pedal edema Acid reflux History of Holter monitoring SVT (supraventricular tachycardia) Sleep apnea Sinus bradycardia Asthma Hyperlipidemia Palpitations Mitral valve regurgitation History of pneumonia Ventral hernia Polymyalgia rheumatica Surgical History History of hernia repair (01/03/18) H/O bilateral cataract extraction Cataract extraction status of left eye Previous section Family History Father Cancer Father Leukemia Mother Dementia Social History marital status: unknown household members: significant other lives independently: Yes occupational status: previously employed Smoking Status: Never smoker alcohol intake: current substance use type: does not use Discharge Plan Discharge Plan Patient Disposition: Home Provider Discharge Comment: -Resume Xarelto tomorrow 04/14 -Okay to shower with dressing in place -Remove dressing tomorrow 04/14 then leave open to air -Do not submerge wounds in water until seen in follow-up. -No lifting >10 lbs x 4 weeks. -Walking only for exercise for 4 weeks. Discharge orders & Medications Prescriptions: New acetaminophen [Tylenol] 325 mg capsule 650 mg PO QID PRN (Reason: pain) Qty: 60 0RF metoprolol succinate 25 mg tablet extended release 24 hr 25 mg PO DAILY Qty: 60 0RF Continued Xarelto 20 mg tablet 20 mg PO DAILY Rx Instructions: must administer with evening meal rosuvastatin 10 mg tablet 10 mg PO DAILY cholecalciferol (vitamin D3) 1 tab PO DAILY vitamin N39-fsods acid 1 tab PO DAILY Rx Instructions: Twice weekly coenzyme Q10 [Co Q-10] 200 mg capsule 200 mg PO DAILY Discontinued amoxicillin-pot clavulanate 875-125 mg tablet 1 tab PO BID Medication counseling provided by Pharmacist: Yes Follow up/Referrals: Jose Lewis MD [Physician] - 04/21/23 9:45 am (Appt:04/21 check in @ 9:45 ) Sil Martínez MD [Primary Care Provider] - Diet/Activity/Treatments Diet: Regular Skin/Wound/Dressing Care Report to your healthcare provider any signs of infection, such as:: chills, fever, increased pain, unusual drainage and unusual redness Visit Report/Discharge Packet Instructions: DI for Atrial Fibrillation, Metoprolol, DI for Ventral Hernia, DI for Incision and Drainage, [facility]: Wound Care Stand Alone Forms: Patient Portal/API, Stroke Signs & Symptoms, Surgery Discharge Discharge Data Primary Care Provider: Sil Martínez
== END 2023-04-13 11:34 | disposition home or self-care (01) | DRG 580 ==
LOC: AC 16:15
PROVIDERS: Hospitalist; Surgery; Admitting Provider Surgery; PCP Internal Medicine; Referring Provider Surgery; Visit Provider Surgery
PROC: 0WJF0ZZ Inspection of Abdominal Wall, Open Approach (ICD-10-PCS; principal; 2023-04-08 14:30)
DX: L02.211 Cutaneous abscess of abdominal wall (principal); K56.7 Ileus, unspecified; K91.89 Other postprocedural complications and disorders of digestive system; K63.2 Fistula of intestine; R33.9 Retention of urine, unspecified; I48.0 Paroxysmal atrial fibrillation; I95.9 Hypotension, unspecified; E78.5 Hyperlipidemia, unspecified; Z79.01 Long term (current) use of anticoagulants; Z95.0 Presence of cardiac pacemaker
CPT/HCPCS: 36415; 80048; 82962; 84484; 85025; 87070; 87075; 87205; 93005; 93306; 94760; 97116; 97163; 97530; J0136; J0330; J1100; J1170; J1650; J2405; J2543; J2704; J3010

== ENCOUNTER → 2023-09-20 09:58 | Outpatient (CLI) | payer MEDICARE, SELFPAY ==
[2023-04-08 18:54] VITALS: BMI 28.8
--- NOTE | 2023-09-20 09:59 | DI.MG.S_ITS ---
BILATERAL DIGITAL SCREENING MAMMOGRAM 3D/2D WITH CAD: 09/20/2023 CLINICAL: Routine screening. Comparison is made to exams dated: 08/07/2022 mammogram, 07/15/2020 mammogram, 07/07/2020 mammogram, and 01/22/2015 mammogram - [facility]. Both breasts are almost entirely fatty (category a/<25% glandular tissue). Current study was also evaluated with a Computer Aided Detection (CAD) system. No significant masses, calcifications, or other findings are seen in either breast. There has been no significant interval change. IMPRESSION: NEGATIVE There is no mammographic evidence of malignancy. A 1 year screening mammogram is recommended. Based on the Tyrer Cuzick model (a risk assessment model) the patient's lifetime risk is 0.5% and her 10 year risk is 0.0%. According to the ACR, ACS, and NCCN guidelines, an annual breast MRI exam along with mammogram is recommended if the patient's lifetime risk is 20% or greater. This exam was interpreted at Station ID: [id number]. NOTE: For mammograms, a report in lay terms will be sent to the patient. Approximately 15% of breast malignancies will not be visualized mammographically. In the management of a palpable breast mass, a negative mammogram must not discourage biopsy of a clinically suspicious lesion. Electronically Signed By: Kathi short/viola:09/20/2023 13:39:40 letter sent: Normal Exam ACR BI-RADS Category 1: Negative [id number]
== END ==
PROVIDERS: PCP Internal Medicine; Referring Provider Internal Medicine; Visit Provider Internal Medicine
DX: Z12.31 Encounter for screening mammogram for malignant neoplasm of breast (principal); R92.313 Mammographic fatty tissue density, bilateral breasts
CPT/HCPCS: 77063; 77067

== ENCOUNTER → 2024-10-26 11:35 | Outpatient (CLI) | payer MEDICARE, SELFPAY ==
[2023-04-08 18:54] VITALS: BMI 28.8
--- NOTE | 2024-10-26 12:10 | DI.RAD.S_ITS ---
PROCEDURE: XR KNEE RT 4V INDICATIONS: Pain in right knee TECHNIQUE: 4 views of the knee were acquired. COMPARISON: [facility], CR, XR KNEE LT 1TO2V, 10/01/2020, 15:21. FINDINGS: Bones: No fractures or dislocations. Severe medial and moderate lateral tibiofemoral and moderate to severe patellofemoral compartment narrowing with associated osteophytosis. Varus angulation. No suspicious bony lesions. Soft tissues: No joint effusion. No suspicious soft tissue calcifications. IMPRESSION: KL grade 4 tricompartmental osteoarthritis without evidence of acute osseous abnormality. Varus angulation. Dictated by: Keshawn Zimmerman M.D. on 10/26/2024 at 15:08 Approved by: Keshawn Zimmerman M.D. on 10/26/2024 at 15:09
== END ==
PROVIDERS: PCP Internal Medicine; Referring Provider Internal Medicine; Visit Provider Internal Medicine
DX: M17.11 Unilateral primary osteoarthritis, right knee (principal); M25.561 Pain in right knee; G89.29 Other chronic pain
CPT/HCPCS: 73564